=== PATIENT | male | born 1970 | race Caucasian/White ===

== ENCOUNTER 2021-01-18 22:58 | Inpatient (IN) | payer MEDICAID, SELFPAY ==
--- NOTE | ~2021-01-18 | XR_ITS ---
EXAMINATION: XR CHEST CLINICAL INFORMATION: Hypoxia COMPARISON: Previous chest x-ray 01/19/2021 TECHNIQUE: Frontal view of the chest was obtained. FINDINGS: There is an endotracheal tube with tip 2.5 cm above the geovanni. There is a nasogastric tube with tip projecting over the proximal stomach. The cardiac and mediastinal contours are stable. The lung volumes are low. There is slight elevation of the right hemidiaphragm. There is atelectasis or small infiltrates at the lung bases. This does not appear appreciably changed. There is no pleural effusion or pneumothorax. Bony structures are unremarkable. XR/XR chest 1V IMPRESSION: Satisfactory position of support tubes. Low lung volumes and bilateral atelectasis/small infiltrates similar to previous exam.
--- NOTE | ~2021-01-18 | XR_ITS ---
EXAMINATION: XR CHEST CLINICAL INFORMATION: Status post intubation COMPARISON: None TECHNIQUE: Frontal view of the chest was obtained. FINDINGS: ET tube is 0.9 cm from the geovanni and should be pulled back. An NG tube is present with its tip in the stomach but the sidehole just above the GE junction. This should be advanced. The heart size is normal. Left basilar atelectasis is seen with surgical clips in the gallbladder fossa. XR/XR chest 1V IMPRESSION: ET tube needs to be pulled back as it is less than 1 cm from the geovanni. NG tube should be advanced.
--- NOTE | ~2021-01-18 | CT_ITS ---
EXAMINATION: CT HEAD WITHOUT CONTRAST CLINICAL INFORMATION: Confused COMPARISON: None TECHNIQUE: Contiguous axial imaging was performed from the skull base to vertex without intravenous administration of contrast. This CT examination was performed using dose optimization techniques as appropriate, variously including the following: *Automated exposure control *Adjustment of mA and/or kV according to patient size (this includes techniques or standardized protocols for targeted exams where dose is matched to indication/reason for exam; i.e. extremities or head) *Use of iterative reconstruction technique DLP: 657 mGy-cm FINDINGS: There is no evidence of acute intracranial hemorrhage or territorial infarction. No abnormal mass effect or midline shift is seen. Bowles to white matter differentiation is well preserved. No extra-axial fluid collections are identified. The ventricles are normal in size. Symmetric regions of chronic appearing encephalomalacia noted in the inferior frontal lobes. There is mild periventricular white matter hypoattenuation consistent with chronic small vessel ischemic disease. Mild volume loss is noted. The osseous structures and soft tissues are normal. Mucosal thickening of the maxillary sinuses. The mastoid air cells are well-aerated. CT/CT head/brain wo con IMPRESSION: No acute intracranial pathology.
--- NOTE | ~2021-01-18 | XR_ITS ---
EXAMINATION: XR CHEST CLINICAL INFORMATION: Line placement COMPARISON: Previous chest x-ray from earlier the same day TECHNIQUE: Frontal view of the chest was obtained. FINDINGS: There is a new left subclavian line with tip projecting over the SVC. Endotracheal tube tip 3 cm above the geovanni. Nasogastric tube projects over the stomach. The cardiac and mediastinal contours are stable. There is a increasing bilateral perihilar and lower lung airspace disease. There is blunting at the right lateral costophrenic angle questionable for a small right pleural effusion. There is no left pleural effusion. There is no pneumothorax. There are degenerative changes of the spine. XR/XR chest 1V IMPRESSION: New left subclavian line tip projects over SVC. No pneumothorax. Increasing bilateral perihilar and lower lung airspace disease. Question small right pleural effusion.
--- NOTE | ~2021-01-18 | XR_ITS ---
EXAMINATION: XR CHEST CLINICAL INFORMATION: Fever. COMPARISON: Chest x-ray 01/23/2021 TECHNIQUE: Frontal view of the chest was obtained. FINDINGS: The lungs are well-expanded. Diffuse bilateral patchy opacity more prominent in the right mid and lower lobe. Findings are consistent with infiltrate. The heart size and pulmonary vascularity is normal. No gross bony abnormality seen. There is a left central catheter is tip in the mid SVC. The endotracheal tube and nasogastric tube has been removed. XR/XR chest 1V IMPRESSION: Bilateral pulmonary infiltrates. The endotracheal tube and enteric tube has been removed.
[2021-01-18 23:15] VITALS: BP 129/75; PULSE 125; RESP 16; TEMP 36.9; O2SAT 95; BMI 25.1
[2021-01-18 23:34] VITALS: BP 129/75; PULSE 125; RESP 16; TEMP 36.9; O2SAT 95
[2021-01-19] VITALS (31 sets, daily range): BP systolic 91–171; BP diastolic 52–101; PULSE 78–132; RESP 15–30; TEMP 37.1–39.2; O2SAT 95–100; BMI 25.1
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
[2021-01-19] MEDS: QUEtiapine Fumarate 300 MG TABLET PO (02:37)
[2021-01-19 03:59] LABS: COVID-19 Test Negative (Negative)
[2021-01-19 04:14] LABS: Eosinophils Percent Auto 0.2 % (0-4); Imm Gran Abs Auto 0.03 X10*3/uL (0.00-0.03); Imm Gran Pct Auto 0.3 % (0.0-0.4); MANUAL DIFF FLAG NO; PLT CLUMP 1; SCAN SMEAR FLAG 1
[2021-01-19 04:15] LABS: Basophils Percent Auto 0.1 % (0-2); Hematocrit 38.2 % (42-52); Hemoglobin 13.6 g/dl (14.0-18.0); Lymphocytes Absolute Auto 1.7 X10*3/uL (1.2-4.9); Mean Corpuscular HGB Conc 35.6 g/dl (31.0-36.0); Mean Corpuscular Hemoglobin 31.6 pg (27.0-33.0); Mean Corpuscular Volume 88.8 fL (80-98); Mean Platelet Volume 11.4 fL (9.4-12.4); Monocytes Absolute Auto 1.4 X10*3/uL (0.1-1.2); Monocytes Percent Auto 14.1 % (2-11); Neutrophils Absolute Auto 6.9 X10*3/uL (2.0-8.3); Neutrophils Percent Auto 68.3 % (45-73); White Blood Count 10.1 X10*3/uL (4.8-10.8)
[2021-01-19 04:24] LABS: Ammonia 59 umol/L (13-55)
[2021-01-19 04:34] LABS: Platelet Count 92 X10*3/uL (160-400)
[2021-01-19 04:37] LABS: Troponin-I High Sensitivity 16.3 ng/L (<3.5-35.0)
[2021-01-19 04:43] LABS: Alanine Aminotransferase 112 U/L (0-40); Albumin Level 4.3 g/dL (3.5-5.0); Alkaline Phosphatase 77 U/L (39-117); Anion Gap 17 (12-20); Aspartate Amino Transferase 129 U/L (5-37); Blood Urea Nitrogen 8 mg/dL (9-16); Calcium 12.2 mg/dL (8.4-10.2); Carbon Dioxide 26 mmol/L (22-29); Chloride 98 mmol/L (96-108); Creatinine Clr Calc Pharmacy 91.9; Estimated Glomerular Filt Rate > 60; Glucose Random 81 mg/dL (60-115); Potassium 3.4 mmol/L (3.3-5.1); Sodium 138 mmol/L (135-145); Total Protein 7.1 g/dL (6.5-8.0)
--- NOTE | 2021-01-19 05:55 | ECG_ITS ---
Test Reason : AMS Blood Pressure : / mmHG Vent. Rate : 107 BPM Atrial Rate : 107 BPM P-R Int : 142 ms QRS Dur : 092 ms QT Int : 374 ms P-R-T Axes : 062 048 021 degrees QTc Int : 499 ms Sinus tachycardia Otherwise normal ECG No previous ECGs available Referred By: Natali Chi Electronically Signed By:Alessandro Allen
[2021-01-19 06:13] LABS: Ethanol < 10 mg/dL
[2021-01-19 06:15] LABS: Magnesium 1.6 mg/dL (1.6-2.6)
[2021-01-19] MEDS: 0.9 % Sodium Chloride 2,000 ML 999 ML IV (06:23)
[2021-01-19 06:42] LABS: INTERNATIONAL NORM RATIO 1.2 (0.9-1.1); Prothrombin Time 13.9 SEC (10.8-13.0)
[2021-01-19 06:45] LABS: Partial Thromboplastin Time 30.4 SEC (24.1-38.0)
[2021-01-19] MEDS: LORazepam 2 MG/ML VIAL IVPUSH (06:51)
[2021-01-19 07:18] LABS: Glucose Urine UA NEG (NEG); Leukocyte Esterase Urine NEG (NEG); Nitrite Urine NEG (NEG); PH 7.5 (5.0-8.0); Specific Gravity - Urine 1.015 (1.005-1.025); Urine Blood NEG (NEG); Urine Ketones NEG (NEG); Urine Protein NEG (NEG-TRACE)
[2021-01-19 07:20] LABS: Appearance Urine CLOUDY; Color Urine YELLOW
--- NOTE | 2021-01-19 07:37 | PC.NURSE ---
patient is up. re directable but confused. knows he is at [facility].
[2021-01-19 07:51] LABS: Amphetamine Screen Urine Not Detected (Not Detect); Barbiturates, Urine Not Detected (Not Detect); Benzodiazepines Screen Urine Not Detected (Not Detect); Cannabinoid Screen Urine POSITIVE (Not Detect); Cocaine Screen Urine Not Detected (Not Detect); Opiate Screen Urine Not Detected (Not Detect); Phencyclidine Screen Urine Not Detected (Not Detect)
[2021-01-19] MEDS: PHENobarbitaL sodium 65 MG/ML VIAL 280 MG IM (08:23)
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
--- NOTE | 2021-01-19 09:03 | PC.NURSE ---
patient is hallucinating. sitter still at bedside.
[2021-01-19] MEDS: PHENobarbitaL sodium 130 MG/ML VIAL 212 MG IM ×2 (11:02→14:19)
--- NOTE | 2021-01-19 11:58 | PC.NURSE ---
patient continues to be combative, hallucinate. sitter at bedside. patient ripping off heart monitor. hospitalist at bedside. needs to be less combative before he can go to the floor per MD. patient is not oriented to place or time.
[2021-01-19] MEDS: Haloperidol Lactate 5 MG/ML VIAL 10 MG IM (13:53)
[2021-01-19] MEDS: diphenhydrAMINE HCL 50 MG/ML VIAL IVPUSH (13:53)
[2021-01-19] MEDS: Enoxaparin Sodium 40 MG/0.4 ML SYRINGE SUBCUT (15:00)
[2021-01-19] MEDS: Thiamine HCL 200 MG in 0.9 % Sodium Chloride 100 ML 204 MG IV (15:33)
[2021-01-19] MEDS: dexmedeTOMIDidine HCL/NS 400 MCG/100 ML INFUS..BTL 19.28 MCG IVCONT (16:06)
[2021-01-19] MEDS: propofoL 200 MG/20 ML VIAL IVPUSH (17:59)
[2021-01-19] MEDS: propofoL 1,000 MG/100 ML VIAL 18.51 MG IVCONT (18:01)
--- NOTE | 2021-01-19 18:07 | W.PM.CCHP ---
Procedures Intubation Intubation Comments: Patient with acute agitation, not responsive to 1st line treatment with benzodiazepines, it was psychotic so, and antihistamines requiring initiation of sedative drips, emergently intubated for airway protection with 7.5 cuffed ET tube under glide scope guidance with no immediate complications. X-ray for ET tube position is pending. Consent for Procedure: Emergent-no informed consent obtained Sedative: propofol Mg given: 200 Laryngoscope: fiber optic video scope ET tube size: 7.5 ET tube uncuffed: No Tube secured depth (cm): 27 Tube secured location: lips Tube placement confirmation: visualized tube passing through cords, equal breath sounds bilaterally and confirmation by capnometry Patient tolerated procedure: no complications
--- NOTE | 2021-01-19 18:12 | P.HPCC_ITS ---
History of Present Illness Date of Service: 01/19/21 Chief Complaint: Alteration of mental status 50-year-old gentleman with underlying history of traumatic brain injury, depression, anxiety, psychotic features, hyperlipidemia, and alcohol abuse admitted on 01/19/2021 for acute alteration of mental status, severe agitation, and psychotic features when he was brought in by police for hallucinations after please found him talking to a lamp in his apartment. His utox was positive for marijuana. However he remained significantly agitated and unresponsive to of initial treatment with parenteral under psychotic, benzodiazepines, and antihistamines. He has been admitted to intensive care unit on a sedative drip. Review of Systems Review of Systems: Yes Unobtainable due to mental status PMFSH Social History Social History Alcohol intake: unknown Smoking Status: Unknown if ever smoked Use of substances other than those prescribed or required for medical reasons: Unknown Advance Directives: No Advance Directives Information Provided: No Meds Allergies Allergy/AdvReac Type Severity Reaction Status Date / Time No Known Allergies Allergy Verified 01/19/21 02:09 Active Medications: Current Medications Generic Name Dose Route Start Last Admin Trade Name Freq PRN Reason Stop Dose Admin Chlorhexidine Gluconate 15 ml 01/19/21 21:00 Chlorhexidine Gluc Oral Rinse 15 Ml Mouthwash BUCCAL TID KAYLEIGH Enoxaparin Sodium 40 mg 01/19/21 15:00 01/19/21 15:00 Enoxaparin Sodium 40 Mg/0.4 Ml Syringe SUBCUT 40 mg Q24H KAYLEIGH Administration Famotidine 20 mg 01/20/21 09:00 Famotidine/Pf 20 Mg/2 Ml Vial IVPUSH DAILY KAYLEIGH Folic Acid 2 mg 01/20/21 09:00 Folic Acid 1 Mg/0.2 Ml Syringe IVPUSH DAILY KAYLEIGH Dexmedetomidine HCl 400 mcg in 100 mls @ 0 mls/hr 01/19/21 14:45 01/19/21 18:06 Precedex IVCONT Infused .Q0M KAYLEIGH Titration Protocol Per Protocol Thiamine HCl 200 mg/ Sodium 102 mls @ 204 mls/hr 01/19/21 14:45 01/19/21 16:32 Chloride IV 01/22/21 03:46 Infused Q12H KAYLEIGH Infusion Propofol 1,000 mg in 100 mls @ 0 mls/hr 01/19/21 18:15 Diprivan IVCONT .Q0M [facility] Protocol Per Protocol Medication 1 each 01/19/21 09:00 No Benzodiazepines MISCELLANE DAILY [facility] Ondansetron HCl 4 mg 01/19/21 14:41 Ondansetron Hcl 4 Mg/2 Ml Vial IVPUSH Q8H PRN Nausea Phenobarbital 45 mg 01/19/21 21:00 Phenobarbital 15 Mg Tablet PO 01/21/21 09:01 BID [facility] Phenobarbital 15 mg 01/21/21 21:00 Phenobarbital 15 Mg Tablet PO 01/23/21 09:01 BID [facility] Phenobarbital 15 mg 01/24/21 09:00 Phenobarbital 15 Mg Tablet PO 01/25/21 09:01 DAILY [facility] Propofol 200 mg 01/19/21 18:07 Propofol 200 Mg/20 Ml Vial IVPUSH 01/19/21 18:08 ONCE ONE Home Medications Medication Instructions Recorded Confirmed Last Taken Type cholecalciferol (vitamin D3) 1 cap PO DAILY 01/19/21 Unknown History [Vitamin D3] citalopram 1 tab PO DAILY 01/19/21 Unknown History fenofibrate nanocrystallized 1 tab PO DAILY 01/19/21 Unknown History naltrexone 1 tab PO DAILY PRN 01/19/21 Unknown History quetiapine 1 tab PO BEDTIME 01/19/21 Unknown History quetiapine 1 tab PO BEDTIME 01/19/21 Unknown History quetiapine 1 tab PO BID 01/19/21 Unknown History Physical Exam Vital Signs: Vital Signs: Last Vital Signs Temp 99.9 F 01/19/21 17:18 Pulse 105 H 01/19/21 17:18 Resp 24 H 01/19/21 17:18 BP 168/93 H 01/19/21 17:18 Pulse Ox 95 01/19/21 17:18 Body Mass Index 25.1 Const: General: no acute distress and other (Sedated on the vent) Eyes: Sclerae: sclerae normal EOM: EOMs intact bilaterally Neck: Neck: Yes no lymphadenopathy, Yes trachea midline and Yes supple Resp: Effort & Inspection: normal respiratory effort and no respiratory distress Auscultation: clear to auscultation bilaterally Cardio: Rate: regular rate Rhythm: regular rhythm Heart sounds: no gallops, no murmurs and no rubs GI: Palpation (GI): Soft to palpation and Other GI palpation findings present ( Nontender) Auscultation: normal bowel sounds Extrem: General: Yes no pedal edema, No clubbing and No cyanosis Results Labs CBC and Chem 7: 01/19/21 04:08 01/19/21 04:08 Labs: Laboratory Results - last 24 hr 01/19/21 01/19/21 01/19/21 03:24 04:08 04:08 MCV 88.8 MCH 31.6 MCHC 35.6 RDW 13.0 Plt Count 92 L MPV 11.4 Immature Gran % (Auto) 0.3 Neut % (Auto) 68.3 Lymph % (Auto) 17.0 L [place] % (Auto) 14.1 H Eos % (Auto) 0.2 Baso % (Auto) 0.1 Lymph # (Auto) 1.7 [place] # (Auto) 1.4 H Eos # (Auto) 0.0 Baso # (Auto) 0.0 Abs Immat Gran (auto) 0.03 Absolute Neuts (auto) 6.9 Absolute Nucleated RBC 0.000 Nucleated RBC % (auto) 0.0 PT INR APTT Anion Gap 17 Estim Creat Clear Calc 91.9 Estimated GFR > 60 Random Glucose 81 Calcium 12.2 H Magnesium 1.6 Total Bilirubin 1.0 AST 129 H ALT 112 H Alkaline Phosphatase 77 Ammonia Troponin I High Sens Total Protein 7.1 Albumin 4.3 Urine Color Urine Appearance Urine pH Ur Specific [place] Urine Protein Urine Glucose (UA) Urine Ketones Urine Blood Urine Nitrite Ur Leukocyte Esterase Urine Opiates Screen Ur Barbiturates Screen Ur Phencyclidine Scrn Ur Amphetamines Screen U Benzodiazepines Scrn Urine Cocaine Screen U Marijuana (THC) Screen Ethyl Alcohol COVID-19 (ADI) Negative COVID-19 Clin Com See Note 01/19/21 01/19/21 01/19/21 04:08 04:08 04:08 MCV MCH MCHC RDW Plt Count MPV Immature Gran % (Auto) Neut % (Auto) Lymph % (Auto) [place] % (Auto) Eos % (Auto) Baso % (Auto) Lymph # (Auto) [place] # (Auto) Eos # (Auto) Baso # (Auto) Abs Immat Gran (auto) Absolute Neuts (auto) Absolute Nucleated RBC Nucleated RBC % (auto) PT INR APTT Anion Gap Estim Creat Clear Calc Estimated GFR Random Glucose Calcium Magnesium Total Bilirubin AST ALT Alkaline Phosphatase Ammonia 59 H Troponin I High Sens 16.3 Total Protein Albumin Urine Color Urine Appearance Urine pH Ur Specific [place] Urine Protein Urine Glucose (UA) Urine Ketones Urine Blood Urine Nitrite Ur Leukocyte Esterase Urine Opiates Screen Ur Barbiturates Screen Ur Phencyclidine Scrn Ur Amphetamines Screen U Benzodiazepines Scrn Urine Cocaine Screen U Marijuana (THC) Screen Ethyl Alcohol < 10 COVID-19 (ADI) COVID-19 Clin Com 01/19/21 01/19/21 01/19/21 06:32 07:07 07:07 MCV MCH MCHC RDW Plt Count MPV Immature Gran % (Auto) Neut % (Auto) Lymph % (Auto) [place] % (Auto) Eos % (Auto) Baso % (Auto) Lymph # (Auto) [place] # (Auto) Eos # (Auto) Baso # (Auto) Abs Immat Gran (auto) Absolute Neuts (auto) Absolute Nucleated RBC Nucleated RBC % (auto) PT 13.9 H INR 1.2 H APTT 30.4 Anion Gap Estim Creat Clear Calc Estimated GFR Random Glucose Calcium Magnesium Total Bilirubin AST ALT Alkaline Phosphatase Ammonia Troponin I High Sens Total Protein Albumin Urine Color YELLOW Urine Appearance CLOUDY Urine pH 7.5 Ur Specific [place] 1.015 Urine Protein NEG Urine Glucose (UA) NEG Urine Ketones NEG Urine Blood NEG Urine Nitrite NEG Ur Leukocyte Esterase NEG Urine Opiates Screen Not Detected Ur Barbiturates Screen Not Detected Ur Phencyclidine Scrn Not Detected Ur Amphetamines Screen Not Detected U Benzodiazepines Scrn Not Detected Urine Cocaine Screen Not Detected U Marijuana (THC) Screen POSITIVE H Ethyl Alcohol COVID-19 (ADI) COVID-19 Clin Com Imaging Radiologist's Impressions: Impressions Head CT 01/19/21 02:09 IMPRESSION: No acute intracranial pathology. Assessment and Plan (1) Acute alteration in mental status: Status: Acute Assessment: 50-year-old gentleman admitted with toxic encephalopathy, likely secondary to substance abuse, requiring sedative drips and intubation for airway protection. Plan: Neuro: Appears to have toxic encephalopathy secondary to substance abuse. CT head with no acute findings. Continue to titrate of sedative drips as tolerated. Cardiac: No acute issues. Pulmonary: Acute respiratory failure requiring intubation and ventilatory support for airway protection secondary to high sedation requirements. Renal: No acute issues. Endo: No acute issues. GI: No acute issues. ID: No acute issues Heme/Onc: No acute issues. Psych: No acute issues. Miscellaneous: No acute issues. Prophylaxis: Famotidine, Lovenox Diet: Nothing by mouth Critical care time spent: 45 minutes (2) Encephalopathy, toxic: Status: Acute (3) Acute respiratory failure: Status: Acute Critical Care Time 45 minutes
--- NOTE | 2021-01-19 18:55 | PC.NURSE ---
ADMITTED FROM ED AT 1743. PATIENT IN 4 POINT RESTRAINTS, YELLING, COMBATIVE. ON PRECEDEX GTT. CALLED. SET UP FOR INTUBATION. 200 MG PROPOFOL IVP AND GTT STARTED AT 40 MCG/KG/MIN. GTT WEIGHT 77.1 KG. ETT 8.0, 27 AT LIP, BITE BLOCK IN PLACE. VENT SETTINGS AC 16 TV 500 PEEP 5 FI02 50%. PROPOFOL GTT INCREASED TO 50 MCG/KG/MIN DUE TO SITTING UP AND PULLING ON RESTRAINTS. RESTRAINTS APPLIED AT 1800. OG TUBE PLACED AND CONFIRMED WITH CXR. CLEMENT PLACED. TMAX 102.6, VSS. SR ON TELE. PICTURES OBTAINED OF BRUISING, NURSING DANDY TENDER NOTIFIED, PLACE IN CHART.
[2021-01-19 19:05] LABS: Basophils Percent Auto 0.2 % (0-2); Eosinophils Percent Auto 0.1 % (0-4); Hematocrit 37.5 % (42-52); Imm Gran Abs Auto 0.13 X10*3/uL (0.00-0.03); Imm Gran Pct Auto 1.1 % (0.0-0.4); Lymphocytes Absolute Auto 0.5 X10*3/uL (1.2-4.9); Lymphocytes Percent Auto 4.1 % (20-40); MANUAL DIFF FLAG SCAN; Mean Corpuscular HGB Conc 34.7 g/dl (31.0-36.0); Mean Corpuscular Hemoglobin 31.7 pg (27.0-33.0); Mean Corpuscular Volume 91.5 fL (80-98); Monocytes Percent Auto 8.5 % (2-11); Platelet Count 103 X10*3/uL (160-400); Red Cell Distribution Width 13.4 % (11.0-16.0); SCAN SMEAR FLAG 1; White Blood Count 11.6 X10*3/uL (4.8-10.8)
[2021-01-19 19:21] LABS: SLIDE REVIEW VERIFIED
[2021-01-19 20:32] LABS: Lactic Acid 0.8 mmol/L (0.5-2.0)
[2021-01-19] MEDS: Chlorhexidine Gluc Oral Rinse 15 ML MOUTHWASH BUCCAL (20:46)
[2021-01-19] MEDS: Piperacillin Sodium/Tazobactam 4.5 GM in 0.9 % Sodium Chloride 100 ML IV (20:46)
[2021-01-19] MEDS: propofoL 1,000 MG/100 ML VIAL 23.13 MG IVCONT (21:20)
[2021-01-20] VITALS (30 sets, daily range): BP systolic 99–131; BP diastolic 53–80; PULSE 70–104; RESP 16–24; TEMP 37.3–38.1; O2SAT 93–99; BMI 25.5
[2021-01-20] MEDS: Cisatracurium Besylate 20 MG/10 ML VIAL 15 MG IVPUSH ×2 (00:11→05:31)
[2021-01-20] MEDS: propofoL 1,000 MG/100 ML VIAL 23.13 MG IVCONT ×6 (01:40→21:02)
[2021-01-20] MEDS: Thiamine HCL 200 MG in 0.9 % Sodium Chloride 100 ML IV (02:22)
[2021-01-20 06:03] LABS: Venous Blood Gas Refer to POC result
[2021-01-20 06:04] LABS: VBG HCO3 16 mmol/L (22-26); VBG pCO2 25 mmHg; VBG pH 7.42 (7.32-7.43); VBG pO2 195 mmHg
[2021-01-20 06:04] LABS: Basophils Percent Auto 0.3 % (0-2); MANUAL DIFF FLAG SCAN; Mean Corpuscular Volume 90.7 fL (80-98); PLT CLUMP 1; Red Blood Count 4.08 X10*6/uL (4.60-5.80); Red Cell Distribution Width 13.9 % (11.0-16.0); SCAN SMEAR FLAG 1
[2021-01-20 06:06] LABS: Eosinophils Percent Auto 0.1 % (0-4); Hemoglobin 12.8 g/dl (14.0-18.0); Imm Gran Abs Auto 0.04 X10*3/uL (0.00-0.03); Imm Gran Pct Auto 0.3 % (0.0-0.4); Lymphocytes Absolute Auto 1.7 X10*3/uL (1.2-4.9); Lymphocytes Percent Auto 14.3 % (20-40); Mean Corpuscular HGB Conc 34.6 g/dl (31.0-36.0); Mean Corpuscular Hemoglobin 31.4 pg (27.0-33.0); Mean Platelet Volume 10.8 fL (9.4-12.4); Monocytes Absolute Auto 1.6 X10*3/uL (0.1-1.2); Monocytes Percent Auto 13.9 % (2-11); Neutrophils Absolute Auto 8.3 X10*3/uL (2.0-8.3); Neutrophils Percent Auto 71.1 % (45-73); Platelet Count 117 X10*3/uL (160-400); White Blood Count 11.7 X10*3/uL (4.8-10.8)
[2021-01-20 06:35] LABS: SLIDE REVIEW VERIFIED
[2021-01-20 06:40] LABS: Anion Gap 20 (12-20); Blood Urea Nitrogen 20 mg/dL (9-16); Calcium 9.2 mg/dL (8.4-10.2); Carbon Dioxide 20 mmol/L (22-29); Chloride 110 mmol/L (96-108); Creatinine Clr Calc Pharmacy 76.6; Estimated Glomerular Filt Rate > 60; Glucose Random 73 mg/dL (60-115); Magnesium 2.1 mg/dL (1.6-2.6); Phosphorus 3.3 mg/dL (2.7-4.5); Potassium 3.6 mmol/L (3.3-5.1); Sodium 146 mmol/L (135-145)
[2021-01-20 06:41] LABS: Alanine Aminotransferase 186 U/L (0-40); Albumin Level 3.7 g/dL (3.5-5.0); Alkaline Phosphatase 68 U/L (39-117); Anion Gap 20 (12-20); Aspartate Amino Transferase 356 U/L (5-37); Bilirubin Total 0.5 mg/dL (0.0-1.0); Blood Urea Nitrogen 21 mg/dL (9-16); Calcium 9.3 mg/dL (8.4-10.2); Carbon Dioxide 20 mmol/L (22-29); Chloride 110 mmol/L (96-108); Creatinine Clr Calc Pharmacy 72.8; Estimated Glomerular Filt Rate > 60; Glucose Random 75 mg/dL (60-115); Potassium 3.6 mmol/L (3.3-5.1); Sodium 146 mmol/L (135-145)
[2021-01-20] MEDS: Midazolam HCl/PF 2 MG/2 ML VIAL 4 MG IVPUSH ×2 (07:25→09:00)
--- NOTE | 2021-01-20 07:35 | PC.NURSE ---
Patient remained on 50 mcg/kg/min throughout the shift. Patient wakeful and pulling on restraints and attempting to sit up at 1155. CLARIFIER OPERATOR HELPER placed order for 15mg Nimbex. Nimbex administered with good effect, at this time the rate on the ventilator was increased to 20 from 16. Nimbex was also administered at 0530. 0715 patient is once again wakeful, pulling on restraints and attempting to sit up. Dr. Aj was contacted and a verbal order was taken for 4mg versed. Versed was emergently pulled from [facility] and administered.
[2021-01-20] MEDS: Dextrose 5 % and Lactated Ring 1,000 ML 100 ML IVCONT ×2 (10:12→18:16)
--- NOTE | 2021-01-20 10:19 | MHC.CLN ---
PT IS CURRENTLY NPO; ON NIMBEX DRIP IF TF NEEDED; RECOMMEND [facility] AT MAX GOAL RATE 55CC/HR TO PROVIDE 1399KCALS (2009KCALS WITH SEDATION; 25KCALS/KG), 55G PROTEIN (.7G/KG), 1102CC FREE WATER FROM FORMULA MONITOR TOLERANCE, RESIDUALS AND LYTES
[2021-01-20] MEDS: Midazolam HCl/NS 50 MG/50 ML PLAST..BAG IVCONT ×2 (10:30→17:47)
[2021-01-20] MEDS: Famotidine/PF 20 MG/2 ML VIAL IVPUSH (10:32)
[2021-01-20] MEDS: Chlorhexidine Gluc Oral Rinse 15 ML MOUTHWASH BUCCAL ×3 (10:32→21:02)
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
--- NOTE | 2021-01-20 14:29 | PM.CCPN ---
Subjective Subjective Date of Service: 01/20/21 Interval History: 50-year-old gentleman with underlying history of traumatic brain injury, depression, anxiety, psychotic features, hyperlipidemia, and alcohol abuse admitted on 01/19/2021 for acute alteration of mental status, severe agitation, and psychotic features when he was brought in by police for hallucinations after please found him talking to a lamp in his apartment. His utox was positive for marijuana. However he remained significantly agitated and unresponsive to of initial treatment with parenteral under psychotic, benzodiazepines, and antihistamines. He has been admitted to intensive care unit on a sedative drip. Overnight requiring paralytic agent several times for difficult to controlled agitation/ventilator synchrony. Physical Exam Vital Signs: Vital Signs: Last Vital Signs Temp 99.7 F 01/20/21 14:00 Pulse 73 01/20/21 14:00 Resp 20 01/20/21 14:00 BP 108/62 01/20/21 14:00 Pulse Ox 98 01/20/21 14:00 Body Mass Index 25.5 Const: General: no acute distress, alert and awake Eyes: Sclerae: sclerae normal EOM: EOMs intact bilaterally Neck: Neck: Yes no lymphadenopathy, Yes trachea midline and Yes supple Resp: Effort & Inspection: normal respiratory effort and no respiratory distress Auscultation: clear to auscultation bilaterally Cardio: Rate: regular rate Rhythm: regular rhythm Heart sounds: no gallops, no murmurs and no rubs GI: Palpation (GI): Soft to palpation and Other GI palpation findings present ( Nontender) Auscultation: normal bowel sounds Extrem: General: Yes no pedal edema, No clubbing and No cyanosis Objective Data Labs CBC & Chem 7: 01/20/21 05:51 01/20/21 05:51 Labs: Laboratory Results - last 24 hr 01/19/21 01/19/21 01/20/21 18:51 20:01 05:51 WBC 11.6 H RBC 4.10 L Hgb 13.0 L Hct 37.5 L MCV 91.5 MCH 31.7 MCHC 34.7 RDW 13.4 Plt Count 103 L MPV 11.0 Immature Gran % (Auto) 1.1 H Neut % (Auto) 86.0 H Lymph % (Auto) 4.1 L [place] % (Auto) 8.5 Eos % (Auto) 0.1 Baso % (Auto) 0.2 Lymph # (Auto) 0.5 L [place] # (Auto) 1.0 Eos # (Auto) 0.0 Baso # (Auto) 0.0 Abs Immat Gran (auto) 0.13 H Absolute Neuts (auto) 10.0 H Absolute Nucleated RBC 0.000 Nucleated RBC % (auto) 0.0 Smear Tech's Comments VERIFIED VBG pH VBG pCO2 VBG pO2 VBG HCO3 VBG O2 Saturation VBG Base Excess Sodium 146 H Potassium 3.6 Chloride 110 H Carbon Dioxide 20 L Anion Gap 20 BUN 20 H D Creatinine 1.14 Estim Creat Clear Calc 76.6 Estimated GFR > 60 Random Glucose 73 Lactic Acid 0.8 Calcium 9.2 D Phosphorus 3.3 Magnesium 2.1 Total Bilirubin AST ALT Alkaline Phosphatase Total Protein Albumin 01/20/21 01/20/21 01/20/21 05:51 05:51 05:57 WBC 11.7 H RBC 4.08 L Hgb 12.8 L Hct 37.0 L MCV 90.7 MCH 31.4 MCHC 34.6 RDW 13.9 Plt Count 117 L MPV 10.8 Immature Gran % (Auto) 0.3 Neut % (Auto) 71.1 Lymph % (Auto) 14.3 L [place] % (Auto) 13.9 H Eos % (Auto) 0.1 Baso % (Auto) 0.3 Lymph # (Auto) 1.7 [place] # (Auto) 1.6 H Eos # (Auto) 0.0 Baso # (Auto) 0.0 Abs Immat Gran (auto) 0.04 H Absolute Neuts (auto) 8.3 Absolute Nucleated RBC 0.000 Nucleated RBC % (auto) 0.0 Smear Tech's Comments VERIFIED VBG pH 7.42 VBG pCO2 25 VBG pO2 195 VBG HCO3 16 L VBG O2 Saturation 100.0 VBG Base Excess -6.0 Sodium 146 H Potassium 3.6 Chloride 110 H Carbon Dioxide 20 L Anion Gap 20 BUN 21 H Creatinine 1.20 Estim Creat Clear Calc 72.8 Estimated GFR > 60 Random Glucose 75 Lactic Acid Calcium 9.3 Phosphorus Magnesium Total Bilirubin 0.5 AST 356 H ALT 186 H Alkaline Phosphatase 68 Total Protein 6.0 L Albumin 3.7 Progress Note: A&P Assessment and plan (1) Acute respiratory failure: Status: Acute Assessment and Plan: Assessment: 50-year-old gentleman admitted with toxic encephalopathy, likely secondary to substance abuse, requiring sedative drips and intubation for airway protection. Plan: Neuro: Appears to have toxic encephalopathy secondary to substance abuse. CT head with no acute findings. Continue to titrate off sedative drips as tolerated. Cardiac: No acute issues. Pulmonary: Acute respiratory failure requiring intubation and ventilatory support for airway protection secondary to high sedation requirements. Renal: No acute issues. Endo: No acute issues. GI: No acute issues. ID: No acute issues Heme/Onc: No acute issues. Psych: No acute issues. Miscellaneous: Will start on Lamictal for mood control. Prophylaxis: Famotidine, Lovenox Diet: Nothing by mouth Critical care time spent: 45 minutes (2) Encephalopathy, toxic: Status: Acute (3) Acute alteration in mental status: Status: Acute Time Spent With Patient Total time spent with greater than 50% in coordination of care (as documented) at patient's floor/unit and/or counseling patient:: 0 Critical Care Time 45
[2021-01-20] MEDS: Enoxaparin Sodium 40 MG/0.4 ML SYRINGE SUBCUT (16:00)
[2021-01-20] MEDS: Thiamine HCL 200 MG in 0.9 % Sodium Chloride 100 ML 100 MG IV (16:00)
--- NOTE | 2021-01-20 19:38 | PC.NURSE ---
Assumed care at 0645. Patient was completely alert, following commands, squeezed hands and pedaled feet to command on 50 mcg/kg/min of propofol; was pulling at restraints, thrashing back and forth, fighting vent; md notified, one time dose of 4 mg iv versed ordered and administered with good effect. This same pattern recurred and a second dose of IV versed was administered with good effect, and then MD ordered versed gtt at 2 ml/hour. patient continues to wake very easily, opens eyes, pulls at restraints when nursing care is given. Patient was found to have lost patency of his OG tube this afternoon; evening nurse following up; patient did not get his afternoon dose of lamictal. Patient continues on IV propofol, IV versed, D5 LR at 100 / hour, only has peripheral access, and MD is aware. Patient with clear lung sounds, has #8 ETT, 27 [place], AC/VC settings of AC 20; TV 500; Peep 5; FiO2 50%; minute volumes about 10. Ventilates well in between nursing care. Scant secretions. Urine output to mukherjee about 9 cc/ hour this morning, MD notified; new order for D5LR gtt, and urine outputs averaging around 40-50 cc/hour. Skin is intact, but scattered redness, bruises, and abrasions.
[2021-01-20] MEDS: lamoTRIgine 25 MG TABLET 50 MG PO (21:02)
[2021-01-21] VITALS (31 sets, daily range): BP systolic 91–149; BP diastolic 47–68; PULSE 66–96; RESP 18–20; TEMP 37.7–39.6; O2SAT 90–100; BMI 28.3
[2021-01-21] MEDS: propofoL 1,000 MG/100 ML VIAL 23.13 MG IVCONT ×6 (00:48→20:59)
[2021-01-21] MEDS: Thiamine HCL 200 MG in 0.9 % Sodium Chloride 100 ML 100 MG IV (01:35)
[2021-01-21] MEDS: Dextrose 5 % and Lactated Ring 1,000 ML 100 ML IVCONT ×2 (03:35→12:33)
[2021-01-21 05:21] LABS: VBG Base Excess 4.6 mmol/L; VBG HCO3 26 mmol/L (22-26); VBG pCO2 30 mmHg; VBG pH 7.54 (7.32-7.43); VBG pO2 106 mmHg
[2021-01-21 05:22] LABS: Basophils Percent Auto 0.5 % (0-2); MANUAL DIFF FLAG SCAN; PLT CLUMP 1; Red Cell Distribution Width 13.9 % (11.0-16.0); SCAN SMEAR FLAG 1
[2021-01-21 05:24] LABS: Eosinophils Absolute Auto 0.1 X10*3/uL (0.0-0.4); Eosinophils Percent Auto 1.1 % (0-4); Hematocrit 36.2 % (42-52); Hemoglobin 12.5 g/dl (14.0-18.0); Imm Gran Abs Auto 0.01 X10*3/uL (0.00-0.03); Imm Gran Pct Auto 0.2 % (0.0-0.4); Lymphocytes Absolute Auto 1.9 X10*3/uL (1.2-4.9); Lymphocytes Percent Auto 29.2 % (20-40); Mean Corpuscular HGB Conc 34.5 g/dl (31.0-36.0); Mean Corpuscular Hemoglobin 31.4 pg (27.0-33.0); Mean Platelet Volume 10.9 fL (9.4-12.4); Monocytes Absolute Auto 1.1 X10*3/uL (0.1-1.2); Monocytes Percent Auto 16.4 % (2-11); Neutrophils Absolute Auto 3.5 X10*3/uL (2.0-8.3); Neutrophils Percent Auto 52.6 % (45-73); Platelet Count 129 X10*3/uL (160-400); Red Blood Count 3.98 X10*6/uL (4.60-5.80); White Blood Count 6.6 X10*3/uL (4.8-10.8)
[2021-01-21 05:40] LABS: SLIDE REVIEW VERIFIED
[2021-01-21 05:55] LABS: Albumin Level 3.3 g/dL (3.5-5.0); Anion Gap 11 (12-20); Blood Urea Nitrogen 11 mg/dL (9-16); Calcium 8.4 mg/dL (8.4-10.2); Carbon Dioxide 25 mmol/L (22-29); Chloride 111 mmol/L (96-108); Creatinine Clr Calc Pharmacy 106.5; Estimated Glomerular Filt Rate > 60; Glucose Random 137 mg/dL (60-115); Magnesium 1.9 mg/dL (1.6-2.6); Phosphorus 1.7 mg/dL (2.7-4.5); Potassium 3.2 mmol/L (3.3-5.1); Sodium 144 mmol/L (135-145)
[2021-01-21 06:01] LABS: Venous Blood Gas Refer to POC result
[2021-01-21] MEDS: Chlorhexidine Gluc Oral Rinse 15 ML MOUTHWASH BUCCAL ×3 (08:11→20:58)
[2021-01-21] MEDS: lamoTRIgine 25 MG TABLET 50 MG PO ×2 (08:12→20:58)
[2021-01-21] MEDS: Famotidine/PF 20 MG/2 ML VIAL IVPUSH (08:12)
[2021-01-21] MEDS: Potassium Phosphate 30 MMOL in 0.9 % Sodium Chloride 500 ML 85 MMOL IV (08:42)
[2021-01-21] MEDS: fentaNYL citrate/NS 1,000 MCG/100 ML PLAST..BAG 2.5 MCG IVCONT (09:28)
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
[2021-01-21] MEDS: Ampicillin Sodium/Sulbactam Na 3 GM in 0.9 % Sodium Chloride 100 ML IV ×3 (12:29→22:53)
[2021-01-21] MEDS: Cisatracurium Besylate 20 MG/10 ML VIAL 10 MG IVPUSH (13:37)
[2021-01-21] MEDS: Thiamine HCL 200 MG in 0.9 % Sodium Chloride 100 ML 204 MG IV (14:26)
[2021-01-21] MEDS: Enoxaparin Sodium 40 MG/0.4 ML SYRINGE SUBCUT (14:32)
[2021-01-21] MEDS: Midazolam HCl/NS 50 MG/50 ML PLAST..BAG IVCONT (14:33)
--- NOTE | 2021-01-21 15:34 | PC.NURSE ---
Pt on propofol and versed this am, sitting up, reaching for et tube, unable to sedate, started on fentanyl drip and titrated, continues to sit up, attempting to get out of bed and pull out et tube, 1:1 staff, pt kicking, unable to sedate, MD at bedside,fentanyl drip increased and nimbex ordered and given with effect, restraints remain for patient safety/ pt continues to have moments of restlessness and agitation, settles with current sedation temp noted to increase to 103.1 this afternoon, pt diaphoretic, hr up from 70s to 90s, copious amounts of bocanegra/cream secretions via inline, md aware, sputum sample obtained and sent and pt started on IV abx
[2021-01-21] MEDS: fentaNYL citrate/NS 1,000 MCG/100 ML PLAST..BAG 15 MCG IVCONT (16:06)
[2021-01-21] MEDS: Acetaminophen Oral Liquid 650 MG/20.3 ML SOLUTION PO (16:49)
[2021-01-21] MEDS: Dextrose 5 % and Lactated Ring 1,000 ML 200 ML IVCONT ×2 (18:22→22:53)
[2021-01-21] MEDS: Albumin Human 25 % 100 ML IV (23:19)
[2021-01-22] VITALS (29 sets, daily range): BP systolic 83–114; BP diastolic 52–77; PULSE 65–77; RESP 20–96; TEMP 38.2–39.3; O2SAT 95–99; BMI 29.2
[2021-01-22] MEDS: propofoL 1,000 MG/100 ML VIAL 23.13 MG IVCONT ×6 (00:57→22:14)
[2021-01-22] MEDS: Furosemide 20 MG/2 ML VIAL IVPUSH (01:55)
[2021-01-22] MEDS: Acetaminophen Oral Liquid 650 MG/20.3 ML SOLUTION PO (01:55)
[2021-01-22] MEDS: fentaNYL citrate/NS 1,000 MCG/100 ML PLAST..BAG 7.5 MCG IVCONT (01:55)
[2021-01-22] MEDS: Thiamine HCL 200 MG in 0.9 % Sodium Chloride 100 ML 204 MG IV (03:27)
[2021-01-22] MEDS: Ampicillin Sodium/Sulbactam Na 3 GM in 0.9 % Sodium Chloride 100 ML IV ×4 (05:12→23:03)
[2021-01-22 05:47] LABS: Eosinophils Absolute Auto 0.1 X10*3/uL (0.0-0.4); Eosinophils Percent Auto 0.8 % (0-4); Imm Gran Abs Auto 0.01 X10*3/uL (0.00-0.03); Imm Gran Pct Auto 0.2 % (0.0-0.4); Mean Corpuscular HGB Conc 33.5 g/dl (31.0-36.0); Mean Corpuscular Volume 93.2 fL (80-98); Mean Platelet Volume 11.1 fL (9.4-12.4); PLT CLUMP 1; SCAN SMEAR FLAG 1
[2021-01-22 05:49] LABS: Basophils Percent Auto 0.3 % (0-2); Hemoglobin 11.4 g/dl (14.0-18.0); Lymphocytes Absolute Auto 1.9 X10*3/uL (1.2-4.9); Lymphocytes Percent Auto 31.1 % (20-40); Mean Corpuscular Hemoglobin 31.2 pg (27.0-33.0); Monocytes Absolute Auto 0.7 X10*3/uL (0.1-1.2); Monocytes Percent Auto 11.6 % (2-11); Neutrophils Absolute Auto 3.4 X10*3/uL (2.0-8.3); Platelet Count 133 X10*3/uL (160-400); Red Blood Count 3.65 X10*6/uL (4.60-5.80); Red Cell Distribution Width 14.6 % (11.0-16.0); White Blood Count 6.1 X10*3/uL (4.8-10.8)
[2021-01-22 05:53] LABS: VBG Base Excess 1.9 mmol/L; VBG HCO3 24 mmol/L (22-26); VBG pCO2 30 mmHg; VBG pO2 68 mmHg
[2021-01-22 05:58] LABS: Venous Blood Gas Refer to POC result
[2021-01-22] MEDS: Dextrose 5 % and Lactated Ring 1,000 ML 200 ML IVCONT ×3 (06:00→13:58)
[2021-01-22 06:12] LABS: MANUAL DIFF FLAG NO
[2021-01-22 06:22] LABS: Alanine Aminotransferase 125 U/L (0-40); Albumin Level 3.1 g/dL (3.5-5.0); Alkaline Phosphatase 50 U/L (39-117); Anion Gap 9 (12-20); Aspartate Amino Transferase 191 U/L (5-37); Bilirubin Total 0.5 mg/dL (0.0-1.0); Blood Urea Nitrogen 7 mg/dL (9-16); Calcium 7.8 mg/dL (8.4-10.2); Carbon Dioxide 27 mmol/L (22-29); Chloride 114 mmol/L (96-108); Creatinine Clr Calc Pharmacy 119.6; Estimated Glomerular Filt Rate > 60; Glucose Random 144 mg/dL (60-115); Magnesium 1.6 mg/dL (1.6-2.6); Phosphorus 2.3 mg/dL (2.7-4.5); Potassium 3.2 mmol/L (3.3-5.1); Sodium 147 mmol/L (135-145)
[2021-01-22] MEDS: Chlorhexidine Gluc Oral Rinse 15 ML MOUTHWASH BUCCAL ×3 (08:23→19:53)
[2021-01-22] MEDS: Famotidine/PF 20 MG/2 ML VIAL IVPUSH (08:23)
[2021-01-22] MEDS: lamoTRIgine 25 MG TABLET 50 MG PO ×2 (08:24→19:53)
[2021-01-22] MEDS: Albumin Human 25 % 100 ML IV ×3 (08:44→19:52)
[2021-01-22] MEDS: Calcium Gluconate/NaCl,Iso-Osm 2 GM/100 ML PLAST..BAG IV (08:44)
[2021-01-22] MEDS: Potassium Phosphate 30 MMOL in 0.9 % Sodium Chloride 500 ML 85 MMOL IV (10:08)
--- NOTE | 2021-01-22 10:10 | PM.CNNEP ---
History of Present Illness Reason for Consult Consult date: 01/22/21 Chief Complaint Chief complaint: Encephalopathy History of Present Illness Narrative: Ask to see re: rhabdo and risk of CHETAN. Currently on vent/edated and info obtained form EHR 50-year-old gentleman with underlying history of traumatic brain injury, depression, anxiety, psychotic features, hyperlipidemia, and alcohol abuse admitted on 01/19/2021 for acute alteration of mental status, severe agitation, and psychotic features when he was brought in by police for hallucinations after please found him talking to a lamp in his apartment. His utox was positive for marijuana. However he remained significantly agitated and unresponsive to of initial treatment with parenteral under psychotic, benzodiazepines, and antihistamines. He has been admitted to intensive care unit on a sedative drip and intubated Notd incr CPK on adm UOP has been good on IVF and CPK grad decr. Review of Systems Review of Systems Yes all other systems are reviewed and are negative and Unobtainable due to mental status PMFSH Social History Social History Household Members: Unknown / Unable to assess Housing: Unknown / Unable to assess Alcohol intake: unknown Smoking Status: Unknown if ever smoked Substance Use Type: Marijuana service: No Current occupational status: unemployed Meds Allergies Allergy/AdvReac Type Severity Reaction Status Date / Time No Known Allergies Allergy Verified 01/19/21 02:09 Active Medications: Current Medications Generic Name Dose Route Start Last Admin Trade Name Freq PRN Reason Stop Dose Admin Acetaminophen 650 mg 01/19/21 19:39 01/22/21 01:55 Acetaminophen Oral Liquid 650 Mg/20.3 Ml Solution PO 650 mg Q6H PRN Administration Fever Chlorhexidine Gluconate 15 ml 01/19/21 21:00 01/22/21 08:23 Chlorhexidine Gluc Oral Rinse 15 Ml Mouthwash BUCCAL 15 ml TID KAYLEIGH Administration Cisatracurium Besylate 15 mg 01/20/21 09:43 Cisatracurium Besylate 20 Mg/10 Ml Vial IVPUSH ONCE PRN Ventilator synchrony Enoxaparin Sodium 40 mg 01/19/21 15:00 01/21/21 14:32 Enoxaparin Sodium 40 Mg/0.4 Ml Syringe SUBCUT 40 mg Q24H KAYLEIGH Administration Famotidine 20 mg 01/20/21 09:00 01/22/21 08:23 Famotidine/Pf 20 Mg/2 Ml Vial IVPUSH 20 mg DAILY KAYLEIGH Administration Folic Acid 2 mg 01/20/21 09:00 01/22/21 08:25 Folic Acid 1 Mg/0.2 Ml Syringe IVPUSH 2 mg DAILY KAYLEIGH Administration Propofol 1,000 mg in 100 mls @ 0 mls/hr 01/19/21 18:15 01/22/21 06:08 Diprivan IVCONT 50 mcg/kg/min .Q0M KAYLEIGH 23.13 mls/hr Administration Protocol Per Protocol Dextrose/Lactated Ringer's 1,000 mls @ 200 mls/hr 01/20/21 08:00 01/22/21 06:00 D5lr IVCONT 200 mls/hr .Q5H KAYLEIGH Administration Midazolam HCl 50 mg in 50 mls @ 2 mls/hr 01/20/21 10:30 01/22/21 09:06 Versed IVCONT 1 mg/hr .Q24H KAYLEIGH 1 mls/hr Infusion 2 MG/HR Fentanyl 1,000 mcg in 100 mls @ 0 mls/hr 01/21/21 09:15 01/22/21 03:05 Sublimaze/Ns IVCONT 50 mcg/hr .Q0M KAYLEIGH 5 mls/hr Titration Protocol Per Protocol Ampicillin Sodium/Sulbactam 100 mls @ 200 mls/hr 01/21/21 11:45 01/22/21 06:09 Sodium 3 gm/ Sodium Chloride IV Infused Q6H KAYLEIGH Infusion Albumin Human 100 mls @ 100 mls/hr 01/22/21 08:30 01/22/21 09:58 Kedbumin 25 % IV 01/23/21 03:29 Infused Q6H KAYLEIGH Infusion Potassium Phosphate 30 mmol/ 510 mls @ 85 mls/hr 01/22/21 08:16 01/22/21 10:08 Sodium Chloride IV 01/22/21 14:15 85 mls/hr ONCE ONE Administration Calcium Gluconate 2 gm in 100 mls @ 50 mls/hr 01/22/21 08:16 01/22/21 08:44 Calcium Gluconate IV 01/22/21 10:15 50 mls/hr ONCE ONE Administration Lamotrigine 50 mg 01/20/21 14:45 01/22/21 08:24 Lamotrigine 25 Mg Tablet PO 50 mg BID KAYLEIGH Administration Ondansetron HCl 4 mg 01/19/21 14:41 Ondansetron Hcl 4 Mg/2 Ml Vial IVPUSH Q8H PRN Nausea Home Medications Medication Instructions Recorded Confirmed Last Taken Type cholecalciferol (vitamin D3) 1 cap PO DAILY 01/19/21 01/22/21 Unknown History [Vitamin D3] citalopram 1 tab PO DAILY 01/19/21 01/22/21 Unknown History fenofibrate nanocrystallized 1 tab PO DAILY 01/19/21 01/22/21 Unknown History naltrexone 1 tab PO DAILY PRN 01/19/21 01/22/21 Unknown History quetiapine 1 tab PO BEDTIME 01/19/21 01/22/21 Unknown History quetiapine 1 tab PO BEDTIME 01/19/21 01/22/21 Unknown History quetiapine 1 tab PO BID 01/19/21 01/22/21 Unknown History Physical Exam Vital Signs: Last Vital Signs Temp 102.4 F H 01/22/21 09:54 Pulse 77 01/22/21 09:54 Resp 20 01/22/21 09:54 BP 90/58 L 01/22/21 09:54 Pulse Ox 97 01/22/21 09:54 Body Mass Index 29.2 Skin General skin exam: no rashes or lesions noted Extrem General: Yes normal to inspection, Yes no pedal edema, No clubbing, No cyanosis and Yes other Psych Speech and movement: Pressured speech present Results Lab Results Result Diagrams: 01/22/21 05:39 01/22/21 05:39 Lab results: Chemistry 01/20/21 01/20/21 01/21/21 05:51 05:51 04:58 Sodium 146 H 146 H 144 Potassium 3.6 3.6 3.2 L Carbon Dioxide 20 L 20 L 25 BUN 20 H D 21 H 11 Creatinine 1.14 1.20 0.82 Calcium 9.2 D 9.3 8.4 D Phosphorus 3.3 1.7 L 01/22/21 05:39 Sodium 147 H Potassium 3.2 L Carbon Dioxide 27 BUN 7 L Creatinine 0.81 Calcium 7.8 L D Phosphorus 2.3 L Hematology 01/19/21 01/20/21 01/21/21 18:51 05:51 04:58 WBC 11.6 H 11.7 H 6.6 Hgb 13.0 L 12.8 L 12.5 L Plt Count 103 L 117 L 129 L 01/22/21 05:39 WBC 6.1 Hgb 11.4 L Plt Count 133 L Assessment and Plan (1) Acute respiratory failure: Status: Acute 1. Rhabdo: not complete ly clear as to culprit for rhabdlo but good news is CPK are grad decr and Scr remains preserved and UOP 40-50/hr 2. AMS: on vent sedation REC: cont IVF to maintian UOP 50-100/hr tpo prevent rhabdo ATN, (usu CPKs are above 5000 to cause ATN); if UOP decr then incr IVF; if SCr imce then consider alkanizing urine ith IV NaHCO3; cont to replace divalents will follow with team (2) Encephalopathy, toxic: Status: Acute
--- NOTE | 2021-01-22 10:11 | PM.CCPN ---
Subjective Subjective Date of Service: 01/22/21 Interval History: ICU day 5 for toxic encephalopathy, acute respiratory failure acute renal failure, rhabdomyolysis, substance abuse. 50-year-old gentleman with underlying history of traumatic brain injury, depression, anxiety, psychotic features, hyperlipidemia, and alcohol abuse admitted on 01/19/2021 for acute alteration of mental status, severe agitation, and psychotic features when he was brought in by police for hallucinations after please found him talking to a lamp in his apartment. His utox was positive for marijuana. However he remained significantly agitated and unresponsive to of initial treatment with parenteral under psychotic, benzodiazepines, and antihistamines. He has been admitted to intensive care unit on a sedative drip. His hospital course has been further complicated by progressive agitation requiring several sedative drips, intubation for airway protection while on sedation, pulmonary aspiration with aspiration pneumonitis versus pneumonia, and development of acute kidney injury secondary to rhabdomyolysis, No events overnight. Continues to require high-level of sedative drips. Physical Exam Vital Signs: Vital Signs: Last Vital Signs Temp 102.4 F H 01/22/21 09:54 Pulse 77 01/22/21 09:54 Resp 20 01/22/21 09:54 BP 90/58 L 01/22/21 09:54 Pulse Ox 97 01/22/21 09:54 Body Mass Index 29.2 Const: General: no acute distress and other (Sedated on the vent) Eyes: Sclerae: sclerae normal EOM: EOMs intact bilaterally Neck: Neck: Yes no lymphadenopathy, Yes trachea midline and Yes supple Resp: Auscultation: crackles (Right basilar) Cardio: Rate: regular rate Rhythm: regular rhythm Heart sounds: no gallops, no murmurs and no rubs GI: Palpation (GI): Soft to palpation and Other GI palpation findings present ( Nontender) Auscultation: normal bowel sounds Extrem: General: Yes no pedal edema, No clubbing and No cyanosis Objective Data Labs CBC & Chem 7: 01/22/21 05:39 01/22/21 05:39 Labs: Laboratory Results - last 24 hr 01/21/21 01/21/21 01/22/21 04:58 18:09 05:39 WBC 6.1 RBC 3.65 L Hgb 11.4 L Hct 34.0 L MCV 93.2 MCH 31.2 MCHC 33.5 RDW 14.6 Plt Count 133 L MPV 11.1 Immature Gran % (Auto) 0.2 Neut % (Auto) 56.0 Lymph % (Auto) 31.1 [place] % (Auto) 11.6 H Eos % (Auto) 0.8 Baso % (Auto) 0.3 Lymph # (Auto) 1.9 [place] # (Auto) 0.7 Eos # (Auto) 0.1 Baso # (Auto) 0.0 Abs Immat Gran (auto) 0.01 Absolute Neuts (auto) 3.4 Absolute Nucleated RBC 0.000 Nucleated RBC % (auto) 0.0 VBG pH VBG pCO2 VBG pO2 VBG HCO3 VBG O2 Saturation VBG Base Excess Sodium Potassium Chloride Carbon Dioxide Anion Gap BUN Creatinine Estim Creat Clear Calc Estimated GFR Random Glucose Calcium Phosphorus Magnesium Total Bilirubin AST ALT Alkaline Phosphatase Total Creatine Kinase 5128 H 4746 H Total Protein Albumin 01/22/21 01/22/21 05:39 05:47 WBC RBC Hgb Hct MCV MCH MCHC RDW Plt Count MPV Immature Gran % (Auto) Neut % (Auto) Lymph % (Auto) [place] % (Auto) Eos % (Auto) Baso % (Auto) Lymph # (Auto) [place] # (Auto) Eos # (Auto) Baso # (Auto) Abs Immat Gran (auto) Absolute Neuts (auto) Absolute Nucleated RBC Nucleated RBC % (auto) VBG pH 7.50 H VBG pCO2 30 VBG pO2 68 VBG HCO3 24 VBG O2 Saturation 95.0 VBG Base Excess 1.9 Sodium 147 H Potassium 3.2 L Chloride 114 H Carbon Dioxide 27 Anion Gap 9 L BUN 7 L Creatinine 0.81 Estim Creat Clear Calc 119.6 Estimated GFR > 60 Random Glucose 144 H Calcium 7.8 L D Phosphorus 2.3 L Magnesium 1.6 Total Bilirubin 0.5 AST 191 H ALT 125 H Alkaline Phosphatase 50 D Total Creatine Kinase Total Protein 5.0 L Albumin 3.1 L Microbiology Microbiology Results: Microbiology 01/21/21 11:55 Sputum - Suctioned Gram Stain - Final 01/21/21 11:55 Sputum - Suctioned Sputum Culture - Preliminary Gram negative eyvgeniy 01/19/21 20:04 Blood - Venous Blood Culture - Preliminary No growth after 48 hours. 01/19/21 20:01 Blood - Venous Blood Culture - Preliminary No growth after 48 hours. Progress Note: A&P Assessment and plan (1) Acute respiratory failure: Status: Acute Assessment and Plan: Assessment: 50-year-old gentleman admitted with toxic encephalopathy, likely secondary to substance abuse, requiring sedative drips and intubation for airway protection. Plan: Neuro: Appears to have toxic encephalopathy secondary to substance abuse. CT head with no acute findings. Continue to titrate off sedative drips as tolerated. Cardiac: No acute issues. Pulmonary: Acute respiratory failure requiring intubation and ventilatory support for airway protection secondary to high sedation requirements. Also with pulmonary aspiration resulting aspiration pneumonitis versus pneumonia, covered with Unasyn. Continue to titrate off as tolerated. Renal: Acute kidney injury secondary to rhabdomyolysis, CPK level is down trending. Nephrology service care appreciated. Non oliguric. Continue with IV fluid support. Continue to monitor renal indices and urine output. Endo: No acute issues. GI: No acute issues. ID: Pulmonary aspiration with resultant aspiration pneumonia versus pneumonitis, empirically covered with Unasyn. Heme/Onc: No acute issues. Psych: No acute issues. Miscellaneous: Continue on Lamictal for mood control Prophylaxis: Famotidine, Lovenox Diet: Tube feeds Critical care time spent: 60 minutes (2) Encephalopathy, toxic: Status: Acute (3) Acute renal failure: Status: Acute (4) Rhabdomyolysis: Status: Acute (5) Pulmonary aspiration: Status: Acute Time Spent With Patient Total time spent with greater than 50% in coordination of care (as documented) at patient's floor/unit and/or counseling patient:: 0 Critical Care Time Critical Care Time (minutes): 60
[2021-01-22] MEDS: Enoxaparin Sodium 40 MG/0.4 ML SYRINGE SUBCUT (13:57)
[2021-01-22] MEDS: Lactated Ringers 1,000 ML 200 ML IVCONT ×2 (15:14→19:53)
--- NOTE | 2021-01-22 15:33 | PC.NURSE ---
Pt on propofol, fentanyl and versed this am for sedation/ versed titrated down per md and turned off this afternoon. Pt sedate, arousable with repositioning but back to sleep with no stimuation, restraints remain for patient safety Thick cream secretions suctioned via inline, continues on abx bp trending 80s systollically this am, md aware, temp 102 max, albumin ordered and given electrolytes replaced started on tube feeds, Jevity to titrate to max of 60 with 240ml water flushes q 6
[2021-01-22] MEDS: fentaNYL citrate/NS 1,000 MCG/100 ML PLAST..BAG 5 MCG IVCONT (22:14)
[2021-01-23] VITALS (38 sets, daily range): BP systolic 91–208; BP diastolic 51–94; PULSE 59–139; RESP 19–43; TEMP 3–38.4; O2SAT 87–100; BMI 31.6
[2021-01-23] MEDS: Lactated Ringers 1,000 ML 200 ML IVCONT ×3 (00:59→12:11)
[2021-01-23] MEDS: Albumin Human 25 % 100 ML IV (01:40)
[2021-01-23] MEDS: propofoL 1,000 MG/100 ML VIAL 23.13 MG IVCONT ×5 (01:40→19:48)
[2021-01-23] MEDS: Ampicillin Sodium/Sulbactam Na 3 GM in 0.9 % Sodium Chloride 100 ML IV ×3 (05:00→17:43)
[2021-01-23 05:48] LABS: MANUAL DIFF FLAG NO
[2021-01-23 05:50] LABS: VBG Base Excess 0.9 mmol/L; VBG HCO3 22 mmol/L (22-26); VBG pCO2 25 mmHg; VBG pH 7.54 (7.32-7.43); VBG pO2 114 mmHg
[2021-01-23 05:53] LABS: Venous Blood Gas Refer to POC result
[2021-01-23 05:59] LABS: Basophils Percent Auto 0.4 % (0-2); Eosinophils Absolute Auto 0.1 X10*3/uL (0.0-0.4); Eosinophils Percent Auto 1.6 % (0-4); Hematocrit 31.6 % (42-52); Hemoglobin 10.5 g/dl (14.0-18.0); Imm Gran Abs Auto 0.03 X10*3/uL (0.00-0.03); Imm Gran Pct Auto 0.4 % (0.0-0.4); Lymphocytes Absolute Auto 2.6 X10*3/uL (1.2-4.9); Lymphocytes Percent Auto 31.6 % (20-40); Mean Corpuscular HGB Conc 33.2 g/dl (31.0-36.0); Mean Corpuscular Hemoglobin 31.1 pg (27.0-33.0); Mean Corpuscular Volume 93.5 fL (80-98); Mean Platelet Volume 12.1 fL (9.4-12.4); Monocytes Percent Auto 12.8 % (2-11); Neutrophils Absolute Auto 4.3 X10*3/uL (2.0-8.3); Neutrophils Percent Auto 53.2 % (45-73); Platelet Count 147 X10*3/uL (160-400); Red Blood Count 3.38 X10*6/uL (4.60-5.80); Red Cell Distribution Width 14.9 % (11.0-16.0); White Blood Count 8.1 X10*3/uL (4.8-10.8)
[2021-01-23 06:27] LABS: Alanine Aminotransferase 141 U/L (0-40); Albumin Level 3.5 g/dL (3.5-5.0); Alkaline Phosphatase 47 U/L (39-117); Anion Gap 9 (12-20); Aspartate Amino Transferase 212 U/L (5-37); Bilirubin Total 0.4 mg/dL (0.0-1.0); Blood Urea Nitrogen 7 mg/dL (9-16); Calcium 7.9 mg/dL (8.4-10.2); Carbon Dioxide 23 mmol/L (22-29); Chloride 113 mmol/L (96-108); Creatinine Clr Calc Pharmacy 141.4; Estimated Glomerular Filt Rate > 60; Glucose Random 127 mg/dL (60-115); Magnesium 1.4 mg/dL (1.6-2.6); Potassium 3.4 mmol/L (3.3-5.1); Sodium 142 mmol/L (135-145)
--- NOTE | 2021-01-23 08:55 | PC.NURSE ---
Addendum entered by Mic Ewing RN 01/23/21 09:28: Tube feed off at 0845 Addendum entered by Mic Ewing RN 01/23/21 09:23: Pressure support 5/5 started - see vent documentation. patient still agitated w/ 50mcg prop & 50mcg fent drips running - pulling at restraints. Tolerating Pres support. Dr Quezada at bedside, plan to extubate - canceled lactate level. Original Note: Patient agitated w/ fent & propofol running. Dr Quezada at bedside - aware of patient agitation - ordered stat lactic & changed vent settings to AC 10 from 20, still overbreathing - RR 18. In-line secretions small amt thick cream sputum.
[2021-01-23] MEDS: Potassium Phosphate 30 MMOL in 0.9 % Sodium Chloride 500 ML 85 MMOL IV (08:58)
[2021-01-23] MEDS: Famotidine/PF 20 MG/2 ML VIAL IVPUSH (09:06)
[2021-01-23] MEDS: Calcium Gluconate/NaCl,Iso-Osm 1 GM/50 ML PLAST..BAG IV (09:06)
[2021-01-23] MEDS: Chlorhexidine Gluc Oral Rinse 15 ML MOUTHWASH BUCCAL ×3 (09:06→19:48)
[2021-01-23] MEDS: Magnesium Sulfate/H2O 2 GM/50 ML PIGGYBACK IV (09:06)
--- NOTE | 2021-01-23 10:05 | MHC.CLN ---
F/U PT RECEIVING TF JEVITY AT MAX GOAL RATE 60CC/HR WITH 240CC FREE WATER Q 6 HRS PROVIDES 1526KCALS (2136KCALS WITH SEDATION; 27KCALS/KG), 64G PROTEIN (.8G/KG), 2162CC TOTAL WATER FROM FORMULA AND FLUSHES (27CC/KG) MONITOR TOLERANCE, RESIDUALS AND LYTES
[2021-01-23] MEDS: lamoTRIgine 25 MG TABLET 50 MG PO ×2 (10:56→20:26)
[2021-01-23] MEDS: fentaNYL citrate/PF 100 MCG/2 ML VIAL IVPUSH (10:59)
[2021-01-23] MEDS: LORazepam 2 MG/ML VIAL IVPUSH ×2 (11:09→20:10)
[2021-01-23] MEDS: fentaNYL citrate/NS 1,000 MCG/100 ML PLAST..BAG 10 MCG IVCONT (12:15)
--- NOTE | 2021-01-23 13:05 | P.PCNCC_ITS ---
Procedures Central Line Placement Left SC: Central Line Comments: PROCEDURE: Insertion left subclavian central venous line. INDICATION: Pneumonia with acute respiratory failure: IV access; blood draws; resp monitoring. ANESTHESIA: Local plus IV sedation. PROCEDURE: Vascular ultrasound was used to examine the left side. A large compressible supraclavic left subclavian vein was noted. Vascular ultrasound was then used to examine the left subclavian area. A large broad compressible vein was noted superior to the SCL artery.. The left subclavian, supraclavicular, and left neck areas were widely prepped and draped in full sterile fashion. The infraclavic subclavian vein was located by US. Local anesthesia was applied to the entrance site with the US probe oriented longitudinally. The infraclavic left subclavian vein was cannulated on the 1st pass of the 18 gauge thin wall under direct US guidance. The wire was threaded without incident. A 7 [place] by 20 cm triple-lumen catheter was advanced into the vein up to the hub via the Seldinger technique without incident. There was good blood return x3. The catheter was sutured x3 and a Biopatch and dry sterile dressing were applied. Postop chest x-ray showed the line in perfect position with no pneumothorax. The patient tolerated the procedure well w no complications.
[2021-01-23] MEDS: propofoL 1,000 MG/100 ML VIAL 27.76 MG IVCONT (13:06)
--- NOTE | 2021-01-23 13:06 | P.PNCC_ITS ---
Subjective Subjective Date of Service: 01/23/21 Interval History: Mr. Moise was admitted to ICU on January 19 with delirium tremens unable to be controlled in the ED with the phenobarbital protocol and other pharmaceuticals. The patient is a 50-year-old male never before been seen at [facility]. According to the brother, the patient has a history of traumatic brain injury, depression, anxiety, and alcohol abuse. The patient had been in a detox program 1 year ago and was sober for approximately 7 months. But the brother believes that the patient has been drinking heavily recently. The patient did have an episode of delirium tremens about 10 years ago and did require a hospitalization in the past for depression. Police were called by the patient on the night of January 18 because he was convinced that people broke into his house and stole his positions. At the scene, it was obvious that the patient was hallucinating. EMS was called and the patient was brought into the ED early on January 19. In the ED, the patient was confused, paranoid, and having visual hallucinations. He was tachycardic and hypertensive. He told the ED staff that he takes Seroquel. Labs were notable for a calcium of 12, mildly bumped ammonia, thrombocytopenia, and transaminitis. The alcohol level was negative. U tox was positive for marijuana. Head CT was unremarkable. The patient was felt to be having classic delirium tremens. He was given normal saline, thiamine, folate, and multivitamins. The patient was admitted to Medicine. Before he could leave the ED, the patient became more agitated. He was begun on the phenobarbital protocol. He received his full dose of phenobarbital IM. He continued to be agitated and he was treated with Haldol 10 mg IM and Benadryl 50 mg IV. The patient was still agitated, and was therefore transferred to the ICU service. He was intubated for airway protection. There was a question of whether the patient aspirated. After admission to the ICU, he required paralytic agent several times for difficult to control agitation and ventilator dyssynchrony. His calcium came down easily with the IV fluids. His creatinine bumped slightly. CPK was noted to be 5100. Despite that, the patient was making good urine and had only a transient bump in his creatinine to a peak of 1.2. IV fluids were increased, and the creatinine came down to normal immediately. Sputum Gram stain from January 21 showed 4+ polys and 3+ epithelial cells with a polymicrobial carter, and is growing E coli and Streptococcus. Today, he?s sedated on propofol at 50ug and easily breaking thru that, altho he?s not interactive. Fentanyl did not help, but when we gave him Ativan 2mg, he calmed right down, and his HR and RR slowed. See Vital Signs below. HR 70, SR. BP 100/60. We had him on PSV down to 5cm briefly, but he tired out, went back on AC. No JVD at 30?. Chest shows coarse crackles. Tracheal secretions are thick and bocanegra, grossly purulent. Normal exp phase. Trivial edema. LABORATORY DATA: As below. IMAGING: CXR post line placement (sep procedure) shows increasing bilateral perihilar and lower lung airspace disease, with right and possibly left pleural effusions. IMPRESSION: 1. Toxic/metabolic encephalopathy secondary to alcohol withdrawal. 2. Aspiration pneumonia. 3. Acute respiratory failure secondary to requirement for airway protection + aspiration pneumonia. Not extubatable. 4. Acute kidney injury secondary to rhabdomyolysis. Resolved. 5. ID: Pulmonary aspiration with aspiration pneumonia. Growing Ecoli and strep. Empirically covered with Unasyn. I?ll reculture sputum tomorrow 6. Neuro: Started on Lamictal for behavior control, with added benzo prn. CVL placed for IV access and resp monitoring (sep procedure) Critical care time (including full chart review, and hospital course summary; multiple visits to the bedside; multiple discussions with Dr. Aj; excluding separate procedures): 80+ minutes. Physical Exam Vital Signs: Vital Signs: Last Vital Signs Temp 98.8 F 01/23/21 12:59 Pulse 66 01/23/21 12:59 Resp 20 01/23/21 12:59 BP 101/62 01/23/21 12:59 Pulse Ox 98 01/23/21 12:59 Body Mass Index 31.6 Objective Data Labs CBC & Chem 7: 01/24/21 05:40 01/24/21 05:40 Labs: Laboratory Results - last 24 hr 01/23/21 01/23/21 01/23/21 05:33 05:34 05:44 WBC 8.1 RBC 3.38 L Hgb 10.5 L Hct 31.6 L MCV 93.5 MCH 31.1 MCHC 33.2 RDW 14.9 Plt Count 147 L MPV 12.1 Immature Gran % (Auto) 0.4 Neut % (Auto) 53.2 Lymph % (Auto) 31.6 [place] % (Auto) 12.8 H Eos % (Auto) 1.6 Baso % (Auto) 0.4 Lymph # (Auto) 2.6 [place] # (Auto) 1.0 Eos # (Auto) 0.1 Baso # (Auto) 0.0 Abs Immat Gran (auto) 0.03 Absolute Neuts (auto) 4.3 Absolute Nucleated RBC 0.000 Nucleated RBC % (auto) 0.0 VBG pH 7.54 H VBG pCO2 25 VBG pO2 114 VBG HCO3 22 VBG O2 Saturation 98.0 VBG Base Excess 0.9 Sodium 142 Potassium 3.4 Chloride 113 H Carbon Dioxide 23 Anion Gap 9 L BUN 7 L Creatinine 0.71 Estim Creat Clear Calc 141.4 Estimated GFR > 60 Random Glucose 127 H Calcium 7.9 L Phosphorus 2.0 L Magnesium 1.4 L* Total Bilirubin 0.4 AST 212 H ALT 141 H Alkaline Phosphatase 47 Total Protein 5.0 L Albumin 3.5 Microbiology Microbiology Results: Microbiology 01/21/21 11:55 Sputum - Suctioned Gram Stain - Final 01/21/21 11:55 Sputum - Suctioned Sputum Culture - Preliminary Escherichia coli Group F Streptococcus 01/19/21 20:04 Blood - Venous Blood Culture - Preliminary No growth after 48 hours. 01/19/21 20:01 Blood - Venous Blood Culture - Preliminary No growth after 48 hours. Progress Note: A&P Time Spent With Patient Time: Total time spent is greater than 50% in coordination of care (as documented) at patient's floor/unit and/or counseling patient: Total time spent with greater than 50% in coordination of care (as documented) at patient's floor/unit and/or counseling patient:: 0 Critical Care Time Critical Care Time (minutes): 90
--- NOTE | 2021-01-23 13:50 | MHC.CM.PN ---
Pt remains in ICU: plans to extubate today - may need sedatives d/t combative and agitated behavior. D/C plan was for a return to home with room mate: Pt does not have a PCP: task sent to CM office for assistance. Pt's brother should be able to provide transportation CM to follow for any changes in d/c plan
[2021-01-23 14:09] LABS: Venous Blood Gas Refer to POC result
[2021-01-23 14:10] LABS: VBG Base Excess -2.2 mmol/L; VBG HCO3 21 mmol/L (22-26); VBG pCO2 32 mmHg; VBG pH 7.42 (7.32-7.43); VBG pO2 45 mmHg
[2021-01-23] MEDS: Enoxaparin Sodium 40 MG/0.4 ML SYRINGE SUBCUT (14:17)
[2021-01-23 14:34] LABS: Lactic Acid 1.2 mmol/L (0.5-2.0)
--- NOTE | 2021-01-23 17:36 | PC.NURSE ---
SHIFT NOTE RECEIVED REPORT PLAN FOR EXTUBATION, TUBE FEEDS PLACED ON HOLD BY PREVIOUS RN. DESPITES PROPOFOL AND FENTANYL INFUSION PT WITH INCREASED WOB AND DISTRESSED ONCE PLACED ON PSV WITH HR 120-140 RR 40-45 PULLING AT RESTRAINTS BUT DOES NOT FOLLOW COMMANDS. PT NOTED TO HAVE COPIOUS THICK ANDREWS SECRETIONS VIA ETT # 20 ANGIO TO RIGHT HAND NOTED TO BE INFILTRATED WITH KPHOS INFUSING. DR. FINN TO BEDSIDE TO ASSESS PT, ORDERS GIVEN TO INCREASE PROP TO 60 AND GIVEN FENTANYL 100 MCG IVP- NEITHER HELPED INCREASE PT COMFORT. ATIVEN 2 MG IVP GIVEN PER MD ORDERS WITH IMMEDIATE RELIEF NOTED, HR DECREASED 60-70 RR 20 PT SWITCHED TO AC MODE AND PT ASSESSED FOR LEFT SC TLC PLACED UNDER US WITHOUT DIFFICULTY. PT REMAINED COMFORTABLE AFTER ATIVAN ADM BUT REMAINS IN BILAT WRIST RETRAINTS. WILL CONTINUE TO ASSESS AND MONITOR
[2021-01-23] MEDS: Lactated Ringers 1,000 ML 100 ML IVCONT (18:43)
[2021-01-24] VITALS (30 sets, daily range): BP systolic 91–144; BP diastolic 49–81; PULSE 56–87; RESP 10–22; TEMP 36.8–37.4; O2SAT 92–99; BMI 32.4
[2021-01-24] MEDS: propofoL 1,000 MG/100 ML VIAL 23.13 MG IVCONT ×7 (00:12→22:01)
[2021-01-24] MEDS: fentaNYL citrate/NS 1,000 MCG/100 ML PLAST..BAG 10 MCG IVCONT ×3 (00:12→22:02)
[2021-01-24] MEDS: Ampicillin Sodium/Sulbactam Na 3 GM in 0.9 % Sodium Chloride 100 ML IV ×5 (00:12→22:02)
[2021-01-24] MEDS: LORazepam 2 MG/ML VIAL IVPUSH ×3 (03:50→18:14)
[2021-01-24] MEDS: Lactated Ringers 1,000 ML 100 ML IVCONT ×3 (04:19→22:03)
[2021-01-24 05:51] LABS: MANUAL DIFF FLAG NO
[2021-01-24 05:54] LABS: Basophils Percent Auto 0.4 % (0-2); Eosinophils Absolute Auto 0.2 X10*3/uL (0.0-0.4); Eosinophils Percent Auto 3.5 % (0-4); Hemoglobin 10.4 g/dl (14.0-18.0); Imm Gran Abs Auto 0.06 X10*3/uL (0.00-0.03); Imm Gran Pct Auto 0.9 % (0.0-0.4); Lymphocytes Absolute Auto 1.2 X10*3/uL (1.2-4.9); Mean Corpuscular HGB Conc 33.5 g/dl (31.0-36.0); Mean Corpuscular Hemoglobin 31.4 pg (27.0-33.0); Mean Corpuscular Volume 93.7 fL (80-98); Monocytes Absolute Auto 1.1 X10*3/uL (0.1-1.2); Monocytes Percent Auto 15.5 % (2-11); Neutrophils Absolute Auto 4.2 X10*3/uL (2.0-8.3); Neutrophils Percent Auto 61.7 % (45-73); Platelet Count 198 X10*3/uL (160-400); Red Blood Count 3.31 X10*6/uL (4.60-5.80); Red Cell Distribution Width 14.8 % (11.0-16.0); White Blood Count 6.9 X10*3/uL (4.8-10.8)
[2021-01-24 05:56] LABS: VBG Base Excess -0.6 mmol/L; VBG HCO3 23 mmol/L (22-26); VBG pCO2 34 mmHg; VBG pH 7.43 (7.32-7.43); VBG pO2 51 mmHg
[2021-01-24 05:57] LABS: Venous Blood Gas Refer to POC result
[2021-01-24 06:41] LABS: Alanine Aminotransferase 108 U/L (0-40); Albumin Level 2.9 g/dL (3.5-5.0); Alkaline Phosphatase 69 U/L (39-117); Anion Gap 10 (12-20); Aspartate Amino Transferase 131 U/L (5-37); Bilirubin Total 0.6 mg/dL (0.0-1.0); Blood Urea Nitrogen 9 mg/dL (9-16); C Reactive Protein 15.49 mg/dL (< or = 0.50); Calcium 7.9 mg/dL (8.4-10.2); Carbon Dioxide 23 mmol/L (22-29); Chloride 112 mmol/L (96-108); Creatinine Clr Calc Pharmacy 156.8; Estimated Glomerular Filt Rate > 60; Glucose Random 111 mg/dL (60-115); Magnesium 1.6 mg/dL (1.6-2.6); Potassium 3.2 mmol/L (3.3-5.1); Sodium 142 mmol/L (135-145); Total Protein 4.5 g/dL (6.5-8.0)
[2021-01-24] MEDS: Famotidine/PF 20 MG/2 ML VIAL IVPUSH (08:21)
[2021-01-24] MEDS: Chlorhexidine Gluc Oral Rinse 15 ML MOUTHWASH BUCCAL ×3 (08:21→22:02)
[2021-01-24] MEDS: lamoTRIgine 25 MG TABLET 50 MG PO ×2 (08:21→22:02)
--- NOTE | 2021-01-24 09:34 | PC.NURSE ---
Shift eval 7p-7a - Patient tolerating AC vent settings. Weaned oxygen from 55% to 30% without issue. Very agitated w/ care - body becomes very rigid, pulling up on restraints with Q2H repositioning. PRN ativan given x2 @ 2009 & 0350 with repositioning. Mod amt in-line secretions - cream/bocanegra & clear oral secretions. Very easily arousable to verbal stimuli, but does not follow directions or fully track. Tolerating tube feed.
--- NOTE | 2021-01-24 10:23 | PM.CCPN ---
Subjective Subjective Date of Service: 01/24/21 Interval History: Mr. Moise was admitted to ICU on January 19 with delirium tremens unable to be controlled in the ED with the phenobarbital protocol and other pharmaceuticals. The patient is a 50-year-old male never before been [place] [facility] [place] According to the brother, the patient has a history of traumatic brain injury, depression, anxiety, and alcohol abuse. The patient had been in a detox program 1 year ago and was sober for approximately 7 months. But the brother believes that the patient has been drinking heavily recently. The patient did have an episode of delirium tremens about 10 years ago and did require a hospitalization in the past for depression. Police were called by the patient on the night of January 18 because he was convinced that people broke into his house and stole his positions. At the scene, it was obvious that the patient was hallucinating. EMS was called and the patient was brought into the ED early on January 19. In the ED, the patient was confused, paranoid, and having visual hallucinations. He was tachycardic and hypertensive. He told the ED staff that he takes Seroquel. Labs were notable for a calcium of 12, mildly bumped ammonia, thrombocytopenia, and transaminitis. The alcohol level was negative. U tox was positive for marijuana. Head CT was unremarkable. The patient was felt to be having classic delirium tremens. He was given normal saline, thiamine, folate, and multivitamins. The patient was admitted to Medicine. While still in the ED before he could be transferred to the floor, the patient became more agitated. He was begun on the phenobarbital protocol. He received his full dose of phenobarbital IM. He continued to be agitated and he was treated with Haldol 10 mg IM and Benadryl 50 mg IV. The patient was still agitated, and was therefore transferred to the ICU service. He was intubated for airway protection. There was a question of whether the patient aspirated. After admission to the ICU, he required paralytic agent several times for difficult to control agitation and ventilator dyssynchrony. His calcium came down easily with the IV fluids. His creatinine bumped slightly. CPK was noted to be 5100. Despite that, the patient was making good urine and had only a transient bump in his creatinine to a peak of 1.2. IV fluids were increased, and the creatinine came down to normal immediately. Sputum Gram stain from January 21 showed 4+ polys and 3+ epithelial cells with a polymicrobial carter, and is growing E coli and Streptococcus. Yesterday he tolerated a PSV trial only briefly, then failed with tachypnea and tachycardia. He had copious thick tracheal secretions. He required prn Ativan for sedation on top of propofol at 50 ug. Today, he?s sedated on propofol at 50ug and fentanyl at 100ug and he?s much more calm. Was given one dose of Ativan prn for bathing. Secretion volume is also much improved. See Vital Signs below. HR 56, BP 122/71. On AC 20/500/30%/+8, Ve is 10L, PIP 23, Sat 96%. CVBG this morning shows 7.43/34/0. Afebrile for 24hrs. No JVD at 30?. Chest shows coarse BS. Normal exp phase. Abd benign. Trivial edema. IV Fluids: LR at 100cc/hr. u/o avg about 50cc/hr. LABORATORY DATA: As below. IMAGING: CXR post line placement (sep procedure) shows increasing bilateral perihilar and lower lung airspace disease, with right and possibly left pleural effusions. IMPRESSION: 1. Toxic/metabolic encephalopathy secondary to alcohol withdrawal. 2. Aspiration pneumonia. 3. Acute respiratory failure secondary to requirement for airway protection + aspiration pneumonia. Not extubatable quite yet bec of secretions. Hopefully tomorrow. 4. Acute kidney injury secondary to rhabdomyolysis. Resolved. 5. ID: Pulmonary aspiration with aspiration pneumonia. Growing Ecoli and strep. Empirically covered with Unasyn. Recultured sputum today. 6. Neuro: Started on Lamictal for behavior control, with added benzo prn. 7. Metabolic: Repleted phos and potassium. 8. Nutrition: On tube feeds. Critical care time: 50+ minutes. Physical Exam Vital Signs: Vital Signs: Last Vital Signs Temp 98.6 F 01/24/21 10:00 Pulse 60 01/24/21 10:00 Resp 20 01/24/21 10:00 BP 120/68 01/24/21 10:00 Pulse Ox 98 01/24/21 10:00 Body Mass Index 32.4 Objective Data Labs CBC & Chem 7: 01/24/21 05:40 01/24/21 05:40 Labs: Laboratory Results - last 24 hr 01/23/21 01/23/21 01/24/21 13:56 14:04 05:40 WBC RBC Hgb Hct MCV MCH MCHC RDW Plt Count MPV Immature Gran % (Auto) Neut % (Auto) Lymph % (Auto) [place] % (Auto) Eos % (Auto) Baso % (Auto) Lymph # (Auto) [place] # (Auto) Eos # (Auto) Baso # (Auto) Abs Immat Gran (auto) Absolute Neuts (auto) Absolute Nucleated RBC Nucleated RBC % (auto) VBG pH 7.42 VBG pCO2 32 VBG pO2 45 VBG HCO3 21 L VBG O2 Saturation 76.0 VBG Base Excess -2.2 Sodium 142 Potassium 3.2 L Chloride 112 H Carbon Dioxide 23 Anion Gap 10 L BUN 9 Creatinine 0.64 Estim Creat Clear Calc 156.8 Estimated GFR > 60 Random Glucose 111 Lactic Acid 1.2 Calcium 7.9 L Magnesium 1.6 Total Bilirubin 0.6 AST 131 H ALT 108 H Alkaline Phosphatase 69 D C-Reactive Protein 15.49 H Total Protein 4.5 L Albumin 2.9 L 01/24/21 01/24/21 05:40 05:49 WBC 6.9 RBC 3.31 L Hgb 10.4 L Hct 31.0 L MCV 93.7 MCH 31.4 MCHC 33.5 RDW 14.8 Plt Count 198 D MPV 12.0 Immature Gran % (Auto) 0.9 H Neut % (Auto) 61.7 Lymph % (Auto) 18.0 L [place] % (Auto) 15.5 H Eos % (Auto) 3.5 Baso % (Auto) 0.4 Lymph # (Auto) 1.2 [place] # (Auto) 1.1 Eos # (Auto) 0.2 Baso # (Auto) 0.0 Abs Immat Gran (auto) 0.06 H Absolute Neuts (auto) 4.2 Absolute Nucleated RBC 0.000 Nucleated RBC % (auto) 0.0 VBG pH 7.43 VBG pCO2 34 VBG pO2 51 VBG HCO3 23 VBG O2 Saturation 84.0 VBG Base Excess -0.6 Sodium Potassium Chloride Carbon Dioxide Anion Gap BUN Creatinine Estim Creat Clear Calc Estimated GFR Random Glucose Lactic Acid Calcium Magnesium Total Bilirubin AST ALT Alkaline Phosphatase C-Reactive Protein Total Protein Albumin Microbiology Microbiology Results: Microbiology 01/21/21 11:55 Sputum - Suctioned Gram Stain - Final 01/21/21 11:55 Sputum - Suctioned Sputum Culture - Final Escherichia coli Streptococcus constellatus 01/19/21 20:04 Blood - Venous Blood Culture - Preliminary No growth after 48 hours. 01/19/21 20:01 Blood - Venous Blood Culture - Preliminary No growth after 48 hours. Progress Note: A&P Time Spent With Patient Time: Total time spent is greater than 50% in coordination of care (as documented) at patient's floor/unit and/or counseling patient: Total time spent with greater than 50% in coordination of care (as documented) at patient's floor/unit and/or counseling patient:: 0 Critical Care Time Critical Care Time (minutes): 60
[2021-01-24] MEDS: Enoxaparin Sodium 40 MG/0.4 ML SYRINGE SUBCUT (14:51)
[2021-01-24] MEDS: Potassium Chloride Packet 20 MEQ PACKET 40 MEQ G-TUBE (18:17)
[2021-01-24] MEDS: Sodium,Potassium Phosphates POWD.PACK 2 PACKET G-TUBE (18:17)
[2021-01-25] VITALS (30 sets, daily range): BP systolic 95–177; BP diastolic 49–104; PULSE 67–146; RESP 8–24; TEMP 37–38.1; O2SAT 91–99; BMI 33.7
[2021-01-25] MEDS: propofoL 1,000 MG/100 ML VIAL 23.13 MG IVCONT ×6 (03:29→22:29)
[2021-01-25 06:19] LABS: MANUAL DIFF FLAG NO
[2021-01-25 06:23] LABS: Basophils Percent Auto 0.4 % (0-2); Eosinophils Absolute Auto 0.3 X10*3/uL (0.0-0.4); Eosinophils Percent Auto 3.8 % (0-4); Hematocrit 36.3 % (42-52); Hemoglobin 12.1 g/dl (14.0-18.0); Imm Gran Abs Auto 0.11 X10*3/uL (0.00-0.03); Imm Gran Pct Auto 1.5 % (0.0-0.4); Lymphocytes Absolute Auto 1.6 X10*3/uL (1.2-4.9); Lymphocytes Percent Auto 21.4 % (20-40); Mean Corpuscular HGB Conc 33.3 g/dl (31.0-36.0); Mean Corpuscular Hemoglobin 31.1 pg (27.0-33.0); Mean Corpuscular Volume 93.3 fL (80-98); Mean Platelet Volume 11.1 fL (9.4-12.4); Monocytes Absolute Auto 1.4 X10*3/uL (0.1-1.2); Monocytes Percent Auto 18.7 % (2-11); NRBC Pct Auto 0.3 /100WBC (0.0-0.2); Neutrophils Percent Auto 54.2 % (45-73); Platelet Count 291 X10*3/uL (160-400); Red Blood Count 3.89 X10*6/uL (4.60-5.80); Red Cell Distribution Width 14.4 % (11.0-16.0); White Blood Count 7.4 X10*3/uL (4.8-10.8)
[2021-01-25] MEDS: Ampicillin Sodium/Sulbactam Na 3 GM in 0.9 % Sodium Chloride 100 ML IV ×4 (06:35→22:30)
[2021-01-25] MEDS: fentaNYL citrate/NS 1,000 MCG/100 ML PLAST..BAG 20 MCG IVCONT (06:57)
[2021-01-25 07:15] LABS: Anion Gap 13 (12-20); Blood Urea Nitrogen 7 mg/dL (9-16); Calcium 8.4 mg/dL (8.4-10.2); Carbon Dioxide 25 mmol/L (22-29); Chloride 108 mmol/L (96-108); Estimated Glomerular Filt Rate > 60; Glucose Random 96 mg/dL (60-115); Magnesium 1.7 mg/dL (1.6-2.6); Phosphorus 3.4 mg/dL (2.7-4.5); Potassium 3.6 mmol/L (3.3-5.1); Sodium 142 mmol/L (135-145)
[2021-01-25 07:25] LABS: Procalcitonin 0.09 ng/mL
[2021-01-25] MEDS: LORazepam 2 MG/ML VIAL IVPUSH (09:03)
--- NOTE | 2021-01-25 09:09 | PM.CCPN ---
Subjective Subjective Date of Service: 01/25/21 Interval History: Mr. Moise was admitted to ICU on January 19 with delirium tremens unable to be controlled in the ED with the phenobarbital protocol and other pharmaceuticals. The patient is a 50-year-old male never before been seen at [facility] [place]. According to the brother, the patient has a history of traumatic brain injury, depression, anxiety, and alcohol abuse. The patient had been in a detox program 1 year ago and was sober for approximately 7 months. But the brother believes that the patient has been drinking heavily recently. The patient did have an episode of delirium tremens about 10 years ago and did require a hospitalization in the past for depression. Police were called by the patient on the night of January 18 because he was convinced that people broke into his house and stole his positions. At the scene, it was obvious that the patient was hallucinating. EMS was called and the patient was brought into the ED early on January 19. In the ED, the patient was confused, paranoid, and having visual hallucinations. He was tachycardic and hypertensive. He told the ED staff that he takes Seroquel. Labs were notable for a calcium of 12, mildly bumped ammonia, thrombocytopenia, and transaminitis. The alcohol level was negative. U tox was positive for marijuana. Head CT was unremarkable. The patient was felt to be having classic delirium tremens. He was given normal saline, thiamine, folate, and multivitamins. The patient was admitted to Medicine. While still in the ED before he could be transferred to the floor, the patient became more agitated. He was begun on the phenobarbital protocol. He received his full dose of phenobarbital IM. He continued to be agitated and he was treated with Haldol 10 mg IM and Benadryl 50 mg IV. The patient was still agitated, and was therefore transferred to the ICU service. He was intubated for airway protection. There was a question of whether the patient aspirated. After admission to the ICU, he required paralytic agent several times for difficult to control agitation and ventilator dyssynchrony. His calcium came down easily with the IV fluids. His creatinine bumped slightly. CPK was noted to be 5100. Despite that, the patient was making good urine and had only a transient bump in his creatinine to a peak of 1.2. IV fluids were increased, and the creatinine came down to normal immediately. Sputum Gram stain from January 21 showed 4+ polys and 3+ epithelial cells with a polymicrobial carter, and is growing E coli and Streptococcus. On January 23 he tolerated a PSV trial only briefly, then failed with tachypnea and tachycardia. He had copious thick tracheal secretions. He required prn Ativan for sedation on top of propofol at 50 ug. Yesterday, he was more calm, secretions thinner. We elected to wait until today for weaning trial. We switched him over to PSV this morning. Just turned the propofol off. He?s on Fentanyl @ 100ug plus the Lamictal. Eyes are open. Not yet interactive. See Vital Signs below. Breathing easy on PSV 5/30%/+5, with RR 14, Vt 650cc, Ve 9L, Sat 94%. HR 120, SR (been tachy since 0300 with low grade temps), BP 123/68, temp 100.6. Secretion volume is not scant, but OK. No JVD at 30?. Chest is absolutely clear, w normal exp phase. Abd benign. 1+ central edema. LABORATORY DATA: As below. MICROBIOLOGY: Sputum Gram stain from yesterday shows 3+ polys, and 2+ Gram-negative rods. Culture is pending. After 15-20 min off the propofol, he became tachycardic and tachypneic, with abdominal paradox breathing. Eyes were open but he only had limited inter activity. He was not responding to commands. Positive response to confrontation, but minimal tracking. We gave him a bolus of fentanyl 100 mcg, which slowed his breathing and improved his tidal volume, but he did not regain inter activity, and heart rate stayed up in the 140s. We therefore restarted the propofol and backed off. Left him on PSV 10/30/+5 with respiratory rate about 17, tidal volumes about 600cc. IMPRESSION: 1. Toxic/metabolic encephalopathy secondary to alcohol withdrawal. 2. Aspiration pneumonia. 3. Acute respiratory failure secondary to requirement for airway protection + aspiration pneumonia. Not extubatable quite yet. Hopefully later today or tomorrow. 4. Acute kidney injury secondary to rhabdomyolysis. Resolved. 5. ID: Pulmonary aspiration with aspiration pneumonia. Growing Ecoli and strep. Empirically covered with Unasyn. Recultured sputum today. 6. Neuro: On Lamictal for behavior control, with added benzo prn. Will d/c the Lamictal now, start Seroquel instead. The Med Rec indicates that he?s on Seroquel 500 mg qhs. I?ll give him 300 mg now. 7. Metabolic: Repleted phos and potassium. More Mag today. 8. Nutrition: On tube feeds. Critical care time: 60+ minutes. Physical Exam Vital Signs: Vital Signs: Last Vital Signs Temp 100.6 F H 01/25/21 08:00 Pulse 112 H 01/25/21 08:00 Resp 18 01/25/21 08:00 BP 130/76 01/25/21 08:00 Pulse Ox 92 01/25/21 08:00 Body Mass Index 33.7 Objective Data Labs CBC & Chem 7: 01/25/21 06:05 01/25/21 06:05 Labs: Laboratory Results - last 24 hr 01/25/21 01/25/21 01/25/21 06:05 06:05 06:05 WBC 7.4 RBC 3.89 L Hgb 12.1 L Hct 36.3 L MCV 93.3 MCH 31.1 MCHC 33.3 RDW 14.4 Plt Count 291 D MPV 11.1 Immature Gran % (Auto) 1.5 H Neut % (Auto) 54.2 Lymph % (Auto) 21.4 [place] % (Auto) 18.7 H Eos % (Auto) 3.8 Baso % (Auto) 0.4 Lymph # (Auto) 1.6 [place] # (Auto) 1.4 H Eos # (Auto) 0.3 Baso # (Auto) 0.0 Abs Immat Gran (auto) 0.11 H Absolute Neuts (auto) 4.0 Absolute Nucleated RBC 0.020 H Nucleated RBC % (auto) 0.3 H Sodium 142 Potassium 3.6 Chloride 108 Carbon Dioxide 25 Anion Gap 13 BUN 7 L Creatinine 0.62 Estim Creat Clear Calc 164.0 Estimated GFR > 60 Random Glucose 96 Calcium 8.4 D Phosphorus 3.4 Magnesium 1.7 Procalcitonin 0.09 Microbiology Microbiology Results: Microbiology 01/19/21 20:01 Blood - Venous Blood Culture - Final No growth after 5 days. 01/19/21 20:04 Blood - Venous Blood Culture - Final No growth after 5 days. 01/24/21 08:45 Sputum - Suctioned Gram Stain - Final 01/21/21 11:55 Sputum - Suctioned Gram Stain - Final 01/21/21 11:55 Sputum - Suctioned Sputum Culture - Final Escherichia coli Streptococcus constellatus Progress Note: A&P Time Spent With Patient Time: Total time spent is greater than 50% in coordination of care (as documented) at patient's floor/unit and/or counseling patient: Total time spent with greater than 50% in coordination of care (as documented) at patient's floor/unit and/or counseling patient:: 0 Critical Care Time Critical Care Time (minutes): 60
[2021-01-25] MEDS: Chlorhexidine Gluc Oral Rinse 15 ML MOUTHWASH BUCCAL ×3 (09:54→19:21)
[2021-01-25] MEDS: Magnesium Sulfate/H2O 2 GM/50 ML PIGGYBACK IV (09:54)
[2021-01-25] MEDS: Famotidine/PF 20 MG/2 ML VIAL IVPUSH (09:54)
[2021-01-25] MEDS: Potassium Chloride Packet 20 MEQ PACKET 40 MEQ G-TUBE (10:54)
[2021-01-25] MEDS: QUEtiapine Fumarate 50 MG TABLET 300 MG G-TUBE (10:54)
[2021-01-25] MEDS: fentaNYL citrate/NS 1,000 MCG/100 ML PLAST..BAG 10 MCG IVCONT ×2 (14:41→23:58)
[2021-01-25] MEDS: Enoxaparin Sodium 40 MG/0.4 ML SYRINGE SUBCUT (14:41)
[2021-01-25 19:16] LABS: VBG Base Excess -0.5 mmol/L; VBG HCO3 24 mmol/L (22-26); VBG pCO2 39 mmHg; VBG pH 7.39 (7.32-7.43); VBG pO2 57 mmHg
[2021-01-25 19:18] LABS: Venous Blood Gas Refer to POC result
[2021-01-26] VITALS (35 sets, daily range): BP systolic 92–180; BP diastolic 49–112; PULSE 71–121; RESP 8–33; TEMP 37.5–38.9; O2SAT 84–98
[2021-01-26] MEDS: propofoL 1,000 MG/100 ML VIAL 23.13 MG IVCONT ×3 (02:28→08:59)
[2021-01-26] MEDS: Ampicillin Sodium/Sulbactam Na 3 GM in 0.9 % Sodium Chloride 100 ML IV ×2 (05:03→12:28)
[2021-01-26 05:46] LABS: VBG Base Excess 3.5 mmol/L; VBG HCO3 29 mmol/L (22-26); VBG pCO2 48 mmHg; VBG pH 7.38 (7.32-7.43); VBG pO2 68 mmHg
[2021-01-26 05:49] LABS: Venous Blood Gas Refer to POC result
--- NOTE | 2021-01-26 06:07 | PC.NURSE ---
PT SEDATE ON PROPOFOL/FENTANYL. ROUSES TO NOXIOUS STIMULI, OPENS EYES BUT DOES NOT TRACK/FOLLOW COMMANDS, REACHES TOWARDS ETT. TMAX 100.2 CORE. NSR ON TELE, HR 70-80s. SBP 90-100s, MAP > 65. ETT #8, 27 CM ADRIANA. REMAINS ON PSV 10/5/50%, RR 8-12, Vt 500, Ve 7. ETCO2 40s. +C/G. MODERATE AMOUNT OF THICK CREAM ORAL/INLINE SECRETIONS. JEVITY TF RUNNING AT MAX RATE OF 60 ML/HR, TOLERATING WELL. UOP APPROX 50-100 ML/HR. SKIN INTACT, BUTT RED BUT BLANCHABLE. NONPITTING EDEMA TO BUE. REPOSITIONED Q2H. ON AIR LOSS BED.
[2021-01-26] MEDS: Chlorhexidine Gluc Oral Rinse 15 ML MOUTHWASH BUCCAL (08:59)
[2021-01-26] MEDS: Famotidine/PF 20 MG/2 ML VIAL IVPUSH (08:59)
[2021-01-26] MEDS: LORazepam 2 MG/ML VIAL 1 MG IVPUSH ×3 (09:09→21:02)
[2021-01-26] MEDS: fentaNYL citrate/NS 1,000 MCG/100 ML PLAST..BAG 10 MCG IVCONT (10:30)
[2021-01-26] MEDS: fentaNYL citrate/PF 100 MCG/2 ML VIAL IVPUSH (12:14)
[2021-01-26] MEDS: Metoprolol Tartrate 5 MG/5 ML VIAL IVPUSH (12:28)
--- NOTE | 2021-01-26 13:29 | P.PNCC_ITS ---
Subjective Subjective Date of Service: 01/26/21 Interval History: Mr. Moise was admitted to ICU on January 19 with delirium tremens unable to be controlled in the ED with the phenobarbital protocol and other pharmaceuticals. The patient is a 50-year-old male never before been seen at [facility] [place]. According to the brother, the patient has a history of traumatic brain injury, depression, anxiety, and alcohol abuse. The patient had been in a detox program 1 year ago and was sober for approximately 7 months. But the brother believes that the patient has been drinking heavily recently. The patient did have an episode of delirium tremens about 10 years ago and did require a hospitalization in the past for depression. Police were called by the patient on the night of January 18 because he was convinced that people broke into his house and stole his positions. At the scene, it was obvious that the patient was hallucinating. EMS was called and the patient was brought into the ED early on January 19. In the ED, the patient was confused, paranoid, and having visual hallucinations. He was tachycardic and hypertensive. He told the ED staff that he takes Seroquel. Labs were notable for a calcium of 12, mildly bumped ammonia, thrombocytopenia, and transaminitis. The alcohol level was negative. U tox was positive for marijuana. Head CT was unremarkable. The patient was felt to be having classic delirium tremens. He was given normal saline, thiamine, folate, and multivitamins. The patient was admitted to Medicine. While still in the ED before he could be transferred to the floor, the patient became more agitated. He was begun on the phenobarbital protocol. He received his full dose of phenobarbital IM. He continued to be agitated and he was treated with Haldol 10 mg IM and Benadryl 50 mg IV. The patient was still agitated, and was therefore transferred to the ICU service. He was intubated for airway protection. There was a question of whether the patient aspirated. After admission to the ICU, he required paralytic agent several times for difficult to control agitation and ventilator dyssynchrony. His calcium came down easily with the IV fluids. His creatinine bumped slightly. CPK was noted to be 5100. Despite that, the patient was making good urine and had only a transient bump in his creatinine to a peak of 1.2. IV fluids were increased, a nd the creatinine came down to normal immediately. Sputum Gram stain from January 21 showed 4+ polys and 3+ epithelial cells with a polymicrobial carter, and is growing E coli and Streptococcus. On January 23 he tolerated a PSV trial only briefly, then failed with tachypnea and tachycardia. He had copious thick tracheal secretions. He required prn Ativan for sedation on top of propofol at 50 ug. He failed trials the next two days, but we were able to switch him over to PSV yesterday and he did well on that all night. I also switched him over yesterday from Lamictal to Seroquel, 300 mg qhs. Today, he?s more calm, no diaphoresis. On propofol @ 50ug, fentanyl @ 100ug. Dropped his vent down to PSV 5cm with no problem. See Vital Signs below. On PSV 5/40%/+5, RR was high teens, Vt 600s, Sat mid-90?s. After the propofol was d/c?d, he was awake enough in about 20 min, altho not purposefully interactive. He extubated without incident onto HFNC 60L/50%, breathing easy with Sat 90-92%. Eyes are open and he?s looking around in a daze. He tracks slowly and nods his head in response to simple questions, and he?s trying to say words but it?s not coming out. Has the look of someone with toxic encephalopathy from too much antipsychotic. HR 99, SR, BP 162/86, Tmax 100.9. Not having much in the way of secretions. No JVD at 30?. Chest has coarse BS, w normal exp phase. Abd benign. 1+ central edema. LABORATORY DATA: As below. Notably, WBC is normal, plat count is rising, renal indices low. MICROBIOLOGY: Sputum Gram stain from 01/24 shows 3+ polys, and 2+ Gram-negative rods. Growing resistant Ecoli ANTIBIOTICS: Unasyn, day #8 IMPRESSION: 1. Toxic/metabolic encephalopathy secondary to alcohol withdrawal. No longer showing ESVIN symptoms, but he looks semi-catatonic. I?ve d/c?d all his antipsychotics. 2. Aspiration pneumonia. Stopped his Unasyn today after 8 days. 3. Acute respiratory failure secondary to requirement for airway protection + aspiration pneumonia. Breathing easy, but his oxygenation is clearly not back to normal. Since he?s been on the fentanyl drip for days, it can?t be stopped cold turkey, has to be tapered. I?ve written to taper it by 20ug every 6 hrs until off. That taper schedule should not be touched unless his RR picks up. 4. Acute kidney injury secondary to rhabdomyolysis. Resolved. He is edematous though, so I?ve written him for Lasix 40 mg daily x 2 days. 5. ID: Pulmonary aspiration with aspiration pneumonia. Antibiotics D/C?d today 6. Metabolic: Repleted potassium and Mag. 7. Nutrition: Had been on tube feeds. Swallow eval tomorrow. Critical care time: 60+ minutes. Will likely tx out of ICU tonight. I'll sign out to hospitalists. Physical Exam Vital Signs: Vital Signs: Last Vital Signs Temp 100.2 F 01/26/21 13:00 Pulse 100 01/26/21 13:00 Resp 16 01/26/21 13:00 BP 159/83 H 01/26/21 13:00 Pulse Ox 92 01/26/21 13:00 Body Mass Index 33.7 Objective Data Labs CBC & Chem 7: 01/25/21 06:05 01/25/21 06:05 Labs: Laboratory Results - last 24 hr 01/25/21 01/26/21 19:09 05:37 VBG pH 7.39 7.38 VBG pCO2 39 48 VBG pO2 57 68 VBG HCO3 24 29 H VBG O2 Saturation 86.0 89.0 VBG Base Excess -0.5 3.5 Microbiology Microbiology Results: Microbiology 01/24/21 08:45 Sputum - Suctioned Gram Stain - Final 01/24/21 08:45 Sputum - Suctioned Sputum Culture - Final Escherichia coli 01/19/21 20:01 Blood - Venous Blood Culture - Final No growth after 5 days. 01/19/21 20:04 Blood - Venous Blood Culture - Final No growth after 5 days. 01/21/21 11:55 Sputum - Suctioned Gram Stain - Final 01/21/21 11:55 Sputum - Suctioned Sputum Culture - Final Escherichia coli Streptococcus constellatus Progress Note: A&P Time Spent With Patient Time: Total time spent is greater than 50% in coordination of care (as d ocumented) at patient's floor/unit and/or counseling patient: Total time spent with greater than 50% in coordination of care (as documented) at patient's floor/unit and/or counseling patient:: 0 Critical Care Time Critical Care Time (minutes): 60
[2021-01-26] MEDS: Furosemide 40 MG/4 ML VIAL IVPUSH (13:41)
[2021-01-26] MEDS: Enoxaparin Sodium 40 MG/0.4 ML SYRINGE SUBCUT (13:42)
[2021-01-26] MEDS: Potassium Chloride/H20 40 MEQ/100 ML PIGGYBACK 100 MEQ IV (13:42)
[2021-01-26] MEDS: Magnesium Sulfate/H2O 2 GM/50 ML PIGGYBACK IV (13:42)
[2021-01-26] MEDS: LORazepam 2 MG/ML VIAL 0.5 MG IVPUSH ×3 (13:51→20:43)
[2021-01-26 14:28] LABS: Ammonia 42 umol/L (13-55)
--- NOTE | 2021-01-26 14:43 | MHC.CM.PN ---
Pt has been successfully extubated today and is on high flow O2. MS impaired d/t medications. CM to follow for d/c planning needs: Pt was independent with all care needs prior to admission and can hopefully, return to home without services once recovered. Pt does not have a PCP - [facility]. CM to assist with PCP appointment now that pt is awake and can demonstrate comprehension. CM to follow.
[2021-01-26] MEDS: propofoL 200 MG/20 ML VIAL 30 MG IVPUSH (16:15)
[2021-01-26] MEDS: dexmedeTOMIDidine HCL/NS 400 MCG/100 ML INFUS..BTL 12.94 MCG IVCONT (16:45)
[2021-01-26] MEDS: LORazepam 2 MG/ML VIAL IVPUSH (17:41)
[2021-01-26] MEDS: dexmedeTOMIDidine HCL/NS 400 MCG/100 ML INFUS..BTL 38.81 MCG IVCONT ×3 (18:13→23:15)
--- NOTE | 2021-01-26 19:00 | PC.NURSE ---
Pt extubated this morning at 1103, placed on highflow 40/40 ultimately increased to 50/50, pt was able to follow some commands moving all extremities, very tense. Required frequent yankeur suctioning as he coughed up sputum. 1500 pt became agitated 0.5mg ativan given with minmal effect. Followed up with 0.5mg ativan. Ultimately 4mg ativan given. 50mcg precedex bolus given, drip titrated up to 1.5mcg/kg/hr. 30mg propofol IVP given per MD at bedside. Pt was kicking staff and thrashing around bed. Pt is now resting in sAo2 92. Pt put out 4.7L of urine after 40mg IVP lasix, potassium and MG++ replaced. 5mg IVP metoprolol given for BP 170/90 with some effect. temp trending up, no longer on Unasyn, RN aware.
[2021-01-26] MEDS: fentaNYL citrate/NS 1,000 MCG/100 ML PLAST..BAG 6 MCG IVCONT (21:02)
[2021-01-26] MEDS: Acetaminophen Supp 650 MG SUPP.RECT PR (22:00)
[2021-01-27] VITALS (35 sets, daily range): BP systolic 120–178; BP diastolic 60–100; PULSE 80–104; RESP 8–41; TEMP 38.3–40; O2SAT 88–99; BMI 33.5
[2021-01-27] MEDS: LORazepam 2 MG/ML VIAL 1 MG IVPUSH ×7 (00:46→22:19)
[2021-01-27] MEDS: dexmedeTOMIDidine HCL/NS 400 MCG/100 ML INFUS..BTL 38.81 MCG IVCONT ×6 (02:03→14:54)
[2021-01-27] MEDS: Metoprolol Tartrate 5 MG/5 ML VIAL IVPUSH (03:08)
--- NOTE | 2021-01-27 04:16 | PC.NURSE ---
Pt increasingly agitated and restless throughout shift, pt attempting to kick and grab staff, PRn ativan given as needed, Fent drip increased see drug titration, Pt febrile PA made aware ID tylenol given without effect, PA aware, ice applied. HR SR/ST SBP 170's, new order for 5 mg IV lopressor Pt occasionally following commands but awakens frequently with outbursts of restlessness, confusion and agitation. soft restraints in placed for pt safety maxed on precedex drip. frequent safety checks. remians on high flow 50L & 60% FI02
[2021-01-27 05:27] LABS: MANUAL DIFF FLAG NO
[2021-01-27] MEDS: Acetaminophen Supp 650 MG SUPP.RECT PR (05:50)
[2021-01-27 05:58] LABS: Basophils Absolute Auto 0.1 X10*3/uL (0.0-0.2); Basophils Percent Auto 0.5 % (0-2); Eosinophils Percent Auto 0.4 % (0-4); Hematocrit 33.7 % (42-52); Hemoglobin 11.4 g/dl (14.0-18.0); Imm Gran Abs Auto 0.08 X10*3/uL (0.00-0.03); Imm Gran Pct Auto 0.7 % (0.0-0.4); Lymphocytes Absolute Auto 1.4 X10*3/uL (1.2-4.9); Lymphocytes Percent Auto 12.2 % (20-40); Mean Corpuscular HGB Conc 33.8 g/dl (31.0-36.0); Mean Corpuscular Hemoglobin 30.6 pg (27.0-33.0); Mean Corpuscular Volume 90.3 fL (80-98); Monocytes Absolute Auto 1.5 X10*3/uL (0.1-1.2); Monocytes Percent Auto 12.9 % (2-11); Neutrophils Absolute Auto 8.3 X10*3/uL (2.0-8.3); Neutrophils Percent Auto 73.3 % (45-73); Platelet Count 408 X10*3/uL (160-400); Red Blood Count 3.73 X10*6/uL (4.60-5.80); Red Cell Distribution Width 13.3 % (11.0-16.0); White Blood Count 11.3 X10*3/uL (4.8-10.8)
[2021-01-27 06:11] LABS: Alanine Aminotransferase 94 U/L (0-40); Albumin Level 3.4 g/dL (3.5-5.0); Alkaline Phosphatase 92 U/L (39-117); Anion Gap 15 (12-20); Aspartate Amino Transferase 98 U/L (5-37); Bilirubin Total 0.7 mg/dL (0.0-1.0); Blood Urea Nitrogen 8 mg/dL (9-16); Calcium 8.5 mg/dL (8.4-10.2); Carbon Dioxide 25 mmol/L (22-29); Chloride 103 mmol/L (96-108); Creatinine Clr Calc Pharmacy 156.9; Estimated Glomerular Filt Rate > 60; Glucose Random 111 mg/dL (60-115); Magnesium 1.7 mg/dL (1.6-2.6); Phosphorus 2.3 mg/dL (2.7-4.5); Potassium 3.7 mmol/L (3.3-5.1); Sodium 139 mmol/L (135-145); Total Protein 5.7 g/dL (6.5-8.0)
[2021-01-27] MEDS: Furosemide 40 MG/4 ML VIAL IVPUSH (09:42)
[2021-01-27] MEDS: fentaNYL citrate/NS 1,000 MCG/100 ML PLAST..BAG 7.5 MCG IVCONT (11:16)
--- NOTE | 2021-01-27 12:27 | MHC.CM.PN ---
Pt remains extubated but sedated and in restraints d/t very aggressive behaviors. Pt reportedly has been seeing [place] providers Jb Lawson APRN (psych) and Asia Bashir TEST SPECIALIST. Lucila notes pt has recently p/u scripts for meds. Pt will need to exhibit calm behaviors free from all restraints before he can transition to the floor. Unknown if he will require a PT eval - pt was 100% independent prior to admission per brother. CM to follow for finalization of d/c plans
[2021-01-27] MEDS: Enoxaparin Sodium 40 MG/0.4 ML SYRINGE SUBCUT (14:52)
--- NOTE | 2021-01-27 15:48 | PC.NURSE ---
PT continues to be restless and extremly agitated/ pulling on restraints, attempting to get out of bed, ripping off leads and o2 sat probe/ temp up to 103.8 when pt agitated and restless, cold wash cloths applied, bps 170s systollically and hr trending 99-100s, o2 sat down to 86%, high flow increased to 55l and 65%, o2 sat back to 88-89%, md aware, stat blood cultures ordered and drawn, chest xray done brother updated by this RN
--- NOTE | 2021-01-27 16:01 | PM.CCPN ---
Subjective Subjective Date of Service: 01/27/21 Interval History: Mr. Moise was admitted to ICU on January 19 with delirium tremens unable to be controlled in the ED with the phenobarbital protocol and other pharmaceuticals. The patient is a 50-year-old male never before been seen at [facility]. According to the brother, the patient has a history of traumatic brain injury, depression, anxiety, and alcohol abuse. The patient had been in a detox program 1 year ago and was sober for approximately 7 months. But the brother believes that the patient has been drinking heavily recently. The patient did have an episode of delirium tremens about 10 years ago and did require a hospitalization in the past for depression. Police were called by the patient on the night of January 18 because he was convinced that people broke into his house and stole his positions. At the scene, it was obvious that the patient was hallucinating. EMS was called and the patient was brought into the ED early on January 19. In the ED, the patient was confused, paranoid, and having visual hallucinations. He was tachycardic and hypertensive. He told the ED staff that he takes Seroquel. Labs were notable for a calcium of 12, mildly bumped ammonia, thrombocytopenia, and transaminitis. The alcohol level was negative. U tox was positive for marijuana. Head CT was unremarkable. The patient was felt to be having classic delirium tremens. He was given normal saline, thiamine, folate, and multivitamins. The patient was admitted to Medicine. While still in the ED before he could be transferred to the floor, the patient became more agitated. He was begun on the phenobarbital protocol. He received his full dose of phenobarbital IM. He continued to be agitated and he was treated with Haldol 10 mg IM and Benadryl 50 mg IV. The patient was still agitated, and was therefore transferred to the ICU service. He was intubated for airway protection. There was a question of whether the patient aspirated. After admission to the ICU, he required paralytic agent several times for difficult to control agitation and ventilator dyssynchrony. His calcium came down easily with the IV fluids. His creatinine bumped slightly. CPK was noted to be 5100. Despite that, the patient was making good urine and had only a transient bump in his creatinine to a peak of 1.2. IV fluids were increased, and the creatinine came down to normal immediately. Sputum Gram stain from January 21 showed 4+ polys and 3+ epithelial cells with a polymicrobial carter, and grew a resistant E coli and Streptococcus. On January 23 he tolerated a PSV trial only briefly, then failed with tachypnea and tachycardia. He had copious thick tracheal secretions. He required prn Ativan for sedation on top of propofol at 50 ug. He failed trials the next two days, but we were able to switch him over to PSV yesterday and he did well on that all night. I also switched him over yesterday from Lamictal to Seroquel, 300 mg qhs. Off propofol yesterday, he was awake but delirious, and not purposefully interactive. He extubated without incident. Most of the time he was breathing easy. He had periods of extreme agitation. We tried him on Precedex, but even at 1.5 mcg, that was minimally successful in controlling his agitation. Ativan 1 or 2 mg IV push did very well however. Overnight, he has been on the Precedex 1.5 mcg, with frequent prn Ativan. He is still delirious today, requiring 4 point restraints when he is not medicated with Ativan. Sometimes he will nod his head or respond with a very soft yes or no to simple questions. He tracks consistently. No diaphoresis today. He?s on a programed fentanyl taper. HR 90, SR. BP 166/95. Started having temps yest about 4pm, Tmax 103.8?. Minimal secretions. No coughing. No JVD at 30?. Chest is clear, w normal exp phase. Abd benign. Minimal edema after Lasix 40 mg daily x 2 days. LABORATORY DATA: As below. Notably, WBC is bumped, plat count is rising, renal indices low. MICROBIOLOGY: Sputum Gram stain from 01/24 shows 3+ polys, and 2+ Gram-negative rods. Growing resistant Ecoli ANTIBIOTICS: d/c?d. CXR this afternoon: Show?s a new right mid lung infiltrate. IMPRESSION: 1. Neuro: Our original dx was toxic/metabolic encephalopathy secondary to alcohol withdrawal. It cannot be said with certainty however that he was not having benzodiazepine withdrawal, altho we have no record of him being on benzo?s, and his tox screen didn?t show any. The question now is, what?s the cause of his current delirium? Whatever it is, he responds very well to 1mg Ativan. Examined the patient today with Manda Barron. In her opinion, his current agitated delirium is not c/w citalopram withdrawal. And it?s going on too many days for this to be alcohol withdrawal. For now, we?ll manage his delirium with Ativan +/- Precedex. The Precedex doesn?t seem to be doing much, we?ll see if we can taper it off without any change in his MS. And we?ll try to avoid giving him any antipsychotics (like Haldol or Zyprexa). 2. New right pneumonia. Probably aspiration. He?s still breathing easy, could be a chemical pneumonitis, no abx at this point. D/W Dr. Garzon. 3. Acute kidney injury secondary to rhabdomyolysis. Resolved. He is edematous though, so I?ve written him for Lasix 40 mg daily x 2 days. 4. Metabolic: Replete potassium, phos, and Mag. 5. HTN. Rx w prn metoprolol. Critical care time (mult visits to the bedside): 70+ minutes. Physical Exam Vital Signs: Vital Signs: Last Vital Signs Temp 103.1 F H 01/27/21 15:51 Pulse 98 01/27/21 15:51 Resp 41 H 01/27/21 15:51 BP 158/93 H 01/27/21 15:51 Pulse Ox 88 L 01/27/21 15:51 Body Mass Index 33.5 Objective Data Labs CBC & Chem 7: 01/27/21 05:15 01/27/21 05:15 Labs: Laboratory Results - last 24 hr 01/27/21 01/27/21 05:15 05:15 WBC 11.3 H RBC 3.73 L Hgb 11.4 L Hct 33.7 L MCV 90.3 MCH 30.6 MCHC 33.8 RDW 13.3 Plt Count 408 H D MPV 11.0 Immature Gran % (Auto) 0.7 H Neut % (Auto) 73.3 H Lymph % (Auto) 12.2 L [place] % (Auto) 12.9 H Eos % (Auto) 0.4 Baso % (Auto) 0.5 Lymph # (Auto) 1.4 [place] # (Auto) 1.5 H Eos # (Auto) 0.0 Baso # (Auto) 0.1 Abs Immat Gran (auto) 0.08 H Absolute Neuts (auto) 8.3 Absolute Nucleated RBC 0.000 Nucleated RBC % (auto) 0.0 Sodium 139 Potassium 3.7 Chloride 103 Carbon Dioxide 25 Anion Gap 15 BUN 8 L Creatinine 0.66 Estim Creat Clear Calc 156.9 Estimated GFR > 60 Random Glucose 111 Calcium 8.5 Phosphorus 2.3 L Magnesium 1.7 Total Bilirubin 0.7 AST 98 H ALT 94 H Alkaline Phosphatase 92 D Total Protein 5.7 L D Albumin 3.4 L Microbiology Microbiology Results: Microbiology 01/24/21 08:45 Sputum - Suctioned Gram Stain - Final 01/24/21 08:45 Sputum - Suctioned Sputum Culture - Final Escherichia coli 01/19/21 20:01 Blood - Venous Blood Culture - Final No growth after 5 days. 01/19/21 20:04 Blood - Venous Blood Culture - Final No growth after 5 days. 01/21/21 11:55 Sputum - Suctioned Gram Stain - Final 01/21/21 11:55 Sputum - Suctioned Sputum Culture - Final Escherichia coli Streptococcus constellatus Progress Note: A&P Time Spent With Patient Time: Total time spent is greater than 50% in coordination of care (as documented) at patient's floor/unit and/or counseling patient: Total time spent with greater than 50% in coordination of care (as documented) at patient's floor/unit and/or counseling patient:: 0 Critical Care Time Critical Care Time (minutes): 60
--- NOTE | 2021-01-27 16:12 | P.CNPS_ITS ---
History of Present Illness Date of Service: 01/27/2021 Chief Complaint: Encephalopathy Reason for Consult: delirium ?antipsychotic or other drug withdrawal Requesting physician: Rolf Quezada Discussed with referring provider: Yes Sources of Information: chart reviewed HPI Narrative: Patient is a 50 year old male who presented to [facility] ED with hallucinations and agitation. Collateral obtained from family member who reported patient had a history of TBI and AUD with previous hospitalization for DT. Pt requiring significant intervention to manage behaviors, including physical restraints Please see ICU notes for hospital course Consult requested as patient was extubated 01/26 and continued to be combative, disoriented and requiring lorazepam as well as physical restraints to maintain his safety. Pt seen in room 252. Awake, responding yes and no to some questions, no eye contact. Vegetable Grower reporting he has been responding to lorazepam. Unclear what his baseline is as he has never been to [facility] [place] and reportedly recently moved here from [facility]. Medicaiton history shows that he was on high dose of Seroquel and Citalopram as well as Naltrexone Past Psychiatric History: Unknown Medical Evaluation Reviewed: Yes still in ICU aspiration pneumonia febrile phenobarb protocol complete Personal & Social History: Unclear Review of Systems Review of Systems Yes Unobtainable due to mental status Diagnostics Vital Signs (24Hr): Vital Signs - 24 hr 01/26/21 16:50 01/26/21 18:00 01/26/21 19:00 Temperature 101.1 F H 101.5 F H 101.5 F H Pulse Rate 100 95 97 Respiratory Rate 30 H 32 H 33 H Blood Pressure 151/78 H 158/89 H 167/93 H Pulse Oximetry 89 L 91 L 94 01/26/21 19:53 01/26/21 20:03 01/26/21 20:41 Temperature 101.5 F H Pulse Rate 93 114 H Respiratory Rate 27 H 28 H 25 H Blood Pressure 167/93 H 168/84 H Pulse Oximetry 95 90 L 01/26/21 20:57 01/26/21 21:58 01/26/21 23:00 Temperature 101.8 F H 102.0 F H 101.8 F H Pulse Rate 120 H 95 94 Respiratory Rate 28 H 22 H 30 H Blood Pressure 168/84 H 173/99 H 180/99 H Pulse Oximetry 92 95 94 01/26/21 23:15 01/26/21 23:39 01/27/21 00:00 Temperature 101.8 F H Pulse Rate 96 95 Respiratory Rate 30 H 28 H 27 H Blood Pressure 180/99 H 168/96 H Pulse Oximetry 94 93 01/27/21 00:48 01/27/21 01:51 01/27/21 03:00 Temperature 102 F H 102.2 F H 103.1 F H Pulse Rate 99 102 H 100 Respiratory Rate 34 H 13 29 H Blood Pressure 167/96 H 170/95 H 165/98 H Pulse Oximetry 91 L 93 93 01/27/21 03:08 01/27/21 03:51 01/27/21 04:00 Temperature 103.6 F H Pulse Rate 99 102 H Respiratory Rate 25 H 33 H Blood Pressure 165/98 H 171/100 H Pulse Oximetry 88 L 01/27/21 04:55 01/27/21 05:55 01/27/21 07:00 Temperature 104 F H 103.8 F H 103.3 F H Pulse Rate 103 H 102 H 102 H Respiratory Rate 32 H 28 H 29 H Blood Pressure 171/100 H 165/97 H 157/95 H Pulse Oximetry 90 L 92 90 L 01/27/21 07:25 01/27/21 07:40 01/27/21 08:07 Temperature 103.1 F H Pulse Rate 100 100 Respiratory Rate 8 L 16 35 H Blood Pressure 157/95 H 157/94 H Pulse Oximetry 92 93 01/27/21 09:00 01/27/21 10:00 01/27/21 11:00 Temperature 102.6 F H 102.4 F H 102.4 F H Pulse Rate 95 94 99 Respiratory Rate 16 13 17 Blood Pressure 161/89 H 158/96 H 160/95 H Pulse Oximetry 94 94 91 L 01/27/21 11:05 01/27/21 12:00 01/27/21 13:00 Temperature 102.7 F H 103.3 F H Pulse Rate 98 101 H Respiratory Rate 15 21 H 10 L Blood Pressure 172/99 H Pulse Oximetry 90 L 01/27/21 14:00 01/27/21 15:00 01/27/21 15:51 Temperature 103.8 F H 103.1 F H 103.1 F H Pulse Rate 102 H 100 98 Respiratory Rate 26 H 25 H 41 H Blood Pressure 170/95 H 178/98 H 158/93 H Pulse Oximetry 94 90 L 88 L Body Mass Index 33.5 Labs Results: 01/27/21 05:15 01/27/21 05:15 Labs: Laboratory Results - last 48 hr 01/25/21 01/26/21 01/26/21 19:09 05:37 14:06 WBC RBC Hgb Hct MCV MCH MCHC RDW Plt Count MPV Immature Gran % (Auto) Neut % (Auto) Lymph % (Auto) [place] % (Auto) Eos % (Auto) Baso % (Auto) Lymph # (Auto) [place] # (Auto) Eos # (Auto) Baso # (Auto) Abs Immat Gran (auto) Absolute Neuts (auto) Absolute Nucleated RBC Nucleated RBC % (auto) VBG pH 7.39 7.38 VBG pCO2 39 48 VBG pO2 57 68 VBG HCO3 24 29 H VBG O2 Saturation 86.0 89.0 VBG Base Excess -0.5 3.5 Sodium Potassium Chloride Carbon Dioxide Anion Gap BUN Creatinine Estim Creat Clear Calc Estimated GFR Random Glucose Calcium Phosphorus Magnesium Total Bilirubin AST ALT Alkaline Phosphatase Ammonia 42 Total Protein Albumin 01/27/21 01/27/21 05:15 05:15 WBC 11.3 H RBC 3.73 L Hgb 11.4 L Hct 33.7 L MCV 90.3 MCH 30.6 MCHC 33.8 RDW 13.3 Plt Count 408 H D MPV 11.0 Immature Gran % (Auto) 0.7 H Neut % (Auto) 73.3 H Lymph % (Auto) 12.2 L [place] % (Auto) 12.9 H Eos % (Auto) 0.4 Baso % (Auto) 0.5 Lymph # (Auto) 1.4 [place] # (Auto) 1.5 H Eos # (Auto) 0.0 Baso # (Auto) 0.1 Abs Immat Gran (auto) 0.08 H Absolute Neuts (auto) 8.3 Absolute Nucleated RBC 0.000 Nucleated RBC % (auto) 0.0 VBG pH VBG pCO2 VBG pO2 VBG HCO3 VBG O2 Saturation VBG Base Excess Sodium 139 Potassium 3.7 Chloride 103 Carbon Dioxide 25 Anion Gap 15 BUN 8 L Creatinine 0.66 Estim Creat Clear Calc 156.9 Estimated GFR > 60 Random Glucose 111 Calcium 8.5 Phosphorus 2.3 L Magnesium 1.7 Total Bilirubin 0.7 AST 98 H ALT 94 H Alkaline Phosphatase 92 D Ammonia Total Protein 5.7 L D Albumin 3.4 L Imaging Radiology Impressions: ITS Impressions Head CT 01/19/21 02:09 IMPRESSION: No acute intracranial pathology. Chest X-Ray 01/19/21 18:46 IMPRESSION: ET tube needs to be pulled back as it is less than 1 cm from the geovanni. NG tube should be advanced. Chest X-Ray 01/23/21 06:00 IMPRESSION: Satisfactory position of support tubes. Low lung volumes and bilateral atelectasis/small infiltrates similar to previous exam. Chest X-Ray 01/23/21 12:34 IMPRESSION: New left subclavian line tip projects over SVC. No pneumothorax. Increasing bilateral perihilar and lower lung airspace disease. Question small right pleural effusion. Chest X-Ray 01/27/21 15:09 IMPRESSION: Bilateral pulmonary infiltrates. The endotracheal tube and enteric tube has been removed. Mental Status Exam Mental Status Exam Level of Consciousness: Sedated, Disoriented and Restless Patient Behavior: Sedated and Confused Patient Cognition Impaired: Yes Ability to Follow Directions: Poor Thought Process: Confusion Judgement: Poor Medications Medications Current Medications Generic Name Dose Route Start Last Admin Trade Name Freq PRN Reason Stop Dose Admin Acetaminophen 650 mg 01/26/21 21:54 01/27/21 05:50 Acetaminophen Supp 650 Mg Supp.Rect TX 650 mg Q6H PRN Administration fever Enoxaparin Sodium 40 mg 01/19/21 15:00 01/27/21 14:52 Enoxaparin Sodium 40 Mg/0.4 Ml Syringe SUBCUT 40 mg Q24H KAYLEIGH Administration Folic Acid 2 mg 01/20/21 09:00 01/27/21 14:54 Folic Acid 1 Mg/0.2 Ml Syringe IVPUSH 2 mg DAILY KAYLEIGH Administration Fentanyl 1,000 mcg in 100 mls @ 8 mls/hr 01/26/21 13:15 01/27/21 11:16 Sublimaze/Ns IVCONT 75 mcg/hr .[id number] KAYLEIGH 7.5 mls/hr Administration 80 MCG/HR Dexmedetomidine HCl 400 mcg in 100 mls @ 0 mls/hr 01/26/21 16:45 01/27/21 14:54 Precedex IVCONT 1.5 mcg/kg/hr .Q0M KAYLEIGH 38.81 mls/hr Administration Protocol Per Protocol Ampicillin Sodium/Sulbactam 100 mls @ 200 mls/hr 01/27/21 16:15 Sodium 3 gm/ Sodium Chloride IV Q6H KAYLEIGH Lorazepam 1 mg 01/27/21 00:23 01/27/21 15:51 Lorazepam 2 Mg/Ml Vial IVPUSH 1 mg Q4H PRN Administration anxiety/restlessness Allergies Allergies Allergy/AdvReac Type Severity Reaction Status Date / Time No Known Allergies Allergy Verified 01/19/21 02:09 Assessment & Plan Assessment & Plan (1) Acute alteration in mental status: Status: Acute Code(s): R41.82 - Altered mental status, unspecified Recommendations: * Delirium of unclear etiology. * In discussion with Vegetable Grower he was concerned patients current presentation may have been due to Citalopram withdrawal---this is highly unlikely. * Consider neurology consult * Gather collateral from treating psychiatric provider (unclear what underlying psychiatric dx is) * Lorazepam and Haldol as needed to address agitation and combative behaviors Greater than 50% of the session was spent on counseling and/or coordination of care
[2021-01-27 16:13] LABS: Glucose Urine UA NEG (NEG); Leukocyte Esterase Urine NEG (NEG); Nitrite Urine NEG (NEG); Urine Blood NEG (NEG); Urine Ketones NEG (NEG); Urine Protein NEG (NEG-TRACE)
[2021-01-27 16:23] LABS: Appearance Urine CLEAR; Color Urine YELLOW
--- NOTE | 2021-01-27 16:56 | PC.NURSE ---
Fentanyl taper initiated per Dr Quezada, gtt decreased to 60mcg/hr (6ml/hr). Patient drowsy, but easily arouseable becomes restless and pulling at tubes with any stimulation. Will cont to monitor.
[2021-01-27] MEDS: Metoprolol Tartrate 5 MG in 0.9 % Sodium Chloride 50 ML 220 MG IV (17:06)
[2021-01-27] MEDS: Magnesium Sulfate/H2O 2 GM/50 ML PIGGYBACK IV (17:44)
[2021-01-27] MEDS: dexmedeTOMIDidine HCL/NS 400 MCG/100 ML INFUS..BTL 25.88 MCG IVCONT ×2 (18:15→21:48)
[2021-01-28] VITALS (33 sets, daily range): BP systolic 118–165; BP diastolic 64–99; PULSE 75–113; RESP 12–40; TEMP 37.5–38.3; O2SAT 90–99; BMI 32.8
[2021-01-28] MEDS: dexmedeTOMIDidine HCL/NS 400 MCG/100 ML INFUS..BTL 25.88 MCG IVCONT ×2 (01:45→05:48)
[2021-01-28] MEDS: LORazepam 2 MG/ML VIAL 1 MG IVPUSH (02:02)
[2021-01-28] MEDS: fentaNYL citrate/NS 1,000 MCG/100 ML PLAST..BAG 4 MCG IVCONT (04:37)
[2021-01-28 05:55] LABS: Venous Blood Gas Refer to POC result
[2021-01-28 05:56] LABS: VBG Base Excess 6.4 mmol/L; VBG HCO3 30 mmol/L (22-26); VBG pCO2 40 mmHg; VBG pH 7.48 (7.32-7.43); VBG pO2 51 mmHg
[2021-01-28 05:57] LABS: Basophils Percent Auto 0.3 % (0-2); Eosinophils Absolute Auto 0.1 X10*3/uL (0.0-0.4); Eosinophils Percent Auto 0.4 % (0-4); Hematocrit 33.6 % (42-52); Hemoglobin 11.6 g/dl (14.0-18.0); Imm Gran Abs Auto 0.06 X10*3/uL (0.00-0.03); Imm Gran Pct Auto 0.4 % (0.0-0.4); Lymphocytes Absolute Auto 2.1 X10*3/uL (1.2-4.9); MANUAL DIFF FLAG SCAN; Mean Corpuscular HGB Conc 34.5 g/dl (31.0-36.0); Mean Corpuscular Hemoglobin 30.7 pg (27.0-33.0); Mean Corpuscular Volume 88.9 fL (80-98); Mean Platelet Volume 10.4 fL (9.4-12.4); Monocytes Absolute Auto 2.2 X10*3/uL (0.1-1.2); Monocytes Percent Auto 15.5 % (2-11); Neutrophils Absolute Auto 9.6 X10*3/uL (2.0-8.3); Neutrophils Percent Auto 68.4 % (45-73); Platelet Count 420 X10*3/uL (160-400); Red Blood Count 3.78 X10*6/uL (4.60-5.80); Red Cell Distribution Width 12.9 % (11.0-16.0); SCAN SMEAR FLAG 1
[2021-01-28 06:16] LABS: SLIDE REVIEW VERIFIED
[2021-01-28 06:17] LABS: Alanine Aminotransferase 73 U/L (0-40); Albumin Level 3.5 g/dL (3.5-5.0); Alkaline Phosphatase 77 U/L (39-117); Anion Gap 13 (12-20); Aspartate Amino Transferase 75 U/L (5-37); Bilirubin Total 0.8 mg/dL (0.0-1.0); Blood Urea Nitrogen 11 mg/dL (9-16); Calcium 8.5 mg/dL (8.4-10.2); Carbon Dioxide 29 mmol/L (22-29); Chloride 101 mmol/L (96-108); Creatinine Clr Calc Pharmacy 169.2; Estimated Glomerular Filt Rate > 60; Glucose Random 132 mg/dL (60-115); Potassium 3.5 mmol/L (3.3-5.1); Sodium 139 mmol/L (135-145); Total Protein 5.8 g/dL (6.5-8.0)
--- NOTE | 2021-01-28 07:52 | PC.NURSE ---
pt awake, answers some questions. He is asking to see his brother Arjun, also pointing to something in room and asking who it is, pt pointing at curtain in room. He is calm, tracks with eyes, follows some commands. Precedex titrated down by 0.02 as per protocol. Left arm restraint trial released, pt has made no attempt to remove tubing or other equipment.Pt falls asleep easily.
--- NOTE | 2021-01-28 08:26 | PC.NURSE ---
pt is awake, able to tell RN the name of his brother and mother, also where they live. Pt confused about where he is and what happened that led to his admission to hospital but is easily reoriented and has remained calm.
--- NOTE | 2021-01-28 08:31 | PC.NURSE ---
pt'soxygen saturation on high flow is 97%. Will attempt to wean to Lopez cannula.
--- NOTE | 2021-01-28 08:40 | PC.NURSE ---
precedex weaned to 0.6mcg/kg/hr. Pt awake, calm, oriented to self and able to name family members.
--- NOTE | 2021-01-28 08:45 | PC.NURSE ---
pt weaned from 60% high flow to 50%. oxygen saturation 95% pt tolerating well.
--- NOTE | 2021-01-28 09:13 | PC.NURSE ---
precedex now at 0.4 mcg/kg pt is able to report where he lives, the name of his roomate and talk about the dog he has at home. Pt able to state the dog's name, age and breed. He converses appropriately, has followed commands and remained calm. He is oriented to the fact that he has been in hospital for at least 11 days and states he does not know what happened at home to lead to his admission. Pt denies pain.
--- NOTE | 2021-01-28 09:29 | PC.NURSE ---
pt remains awake, oriented to self and vague to situation but calm and appropriate, High flow remains at 50% and precedex down to 0.2
--- NOTE | 2021-01-28 10:04 | PC.NURSE ---
pt tolerated PO intake, has been conversing appropriately and more oriented. He was able to point out that the clock in the room has not moved, able to repeat the date and time. He has been participating in active range of motion and doing on his own without prompting. Will continue to monitor
--- NOTE | 2021-01-28 11:21 | PC.NURSE ---
pt awake, oriented to self, place, vague to situation. High flow oxygen off, pt on nasal cannula and was assisted up to chair. He was able to bear weight, has some trouble following commands but was able to pivot to chair. Pt's mother in to visit, pt remains calm and cooperative.
--- NOTE | 2021-01-28 13:28 | P.PNCC_ITS ---
Subjective Subjective Date of Service: 01/28/21 Interval History: Mr. Moise was admitted to ICU on January 19 with delirium tremens unable to be controlled in the ED with the phenobarbital protocol and other pharmaceuticals. The patient is a 50-year-old male never before been seen at [facility] According to the brother, the patient has a history of traumatic brain injury, depression, anxiety, and alcohol abuse. The patient did have an episode of delirium tremens about 10 years ago and did require a hospitalization in the past for depression. He was in a detox program 1 year ago and was sober for approximately 7 months. But the brother believes that the patient has been drinking heavily recently. Police were called by the patient on the night of January 18 because he was convinced that people broke into his house and stole his positions. At the scene, it was obvious that the patient was hallucinating. EMS was called and the patient was brought into the ED early on January 19. In the ED, the patient was confused, paranoid, and having visual hallucinations. He was tachycardic and hypertensive. He told the ED staff that he takes Seroquel. Labs were notable for a calcium of 12, mildly bumped ammonia, thrombocytopenia, and transaminitis. The alcohol level was negative. U tox was positive for marijuana. Head CT was unremarkable. The patient was dx with delirium tremens. He was given normal saline, thiamine, folate, and multivitamins. The patient was admitted to Medicine. While still in the ED, he became more agitated. He was given full dose of phenobarbital IM. He continued to be agitated, unresponsive to Haldol and Benadryl. He was therefore transferred to the ICU service, and intubated for airway protection. There was a question of whether the patient aspirated. After admission to the ICU, he required paralytic agent several times for difficult to control agitation and ventilator dyssynchrony. His calcium came down easily with the IV fluids. His creatinine bumped slightly. CPK was noted to be 5100. Despite that, the patient was making good urine and had only a transient bump in his creatinine to a peak of 1.2. IV fluids were increased, and the creatinine came down to normal. Sputum Gram stain from January 21 showed 4+ polys with a polymicrobial carter, and grew a resistant E coli and Streptococcus. He was treated w a course of Unasyn for presumed aspiration. January 23 to January 26 he was weaned from ventilatory support. Lamictal was started, switched to Seroquel, and then d/c?d. He required prn Ativan for sedation on top of max dose propofol. He extubated without difficulty on January 26. He was awake but very delirious and agitated. Failed to respond to Precedex. Responded very well to prn Ativan 1mg boluses, which we?ve been giving to him for last two days. Yesterday, he spiked temps and bumped his WBC. His FiO2 requirement anmol to 60% high flow, atho he was generally breathing easy. A CXR showed a new right mid- lower lung infiltrate, thought 2? aspiration. No abx given. He?s still mildly delirious today, but much, much better than yesterday. Mental functioning is slow (maybe bec of the Ativan), but he readily answers simple questions. He?s calm, sitting out of bed in the chair. No longer requiring restraints. Talks slowly and softly. His mood also looks improved from yesterday. He finished his programed fentanyl taper. HR 100, SR. BP 157/95. Temp is down to about 100.0?. Breathing easy, Sat anmol overnight. He?s now 90% with FiO2 down to 2L NC. No secretions. No coughing. No JVD at 30?. Chest is clear, w normal exp phase. Abd benign. Minimal edema after Lasix 40 mg daily x 2 days. LABORATORY DATA: As below. Notably, WBC is up further, plat count is rising, blood gas is good, renal indices still low. MICROBIOLOGY: Sputum Gram stain from 01/24 shows 3+ polys, and 2+ Gram-negative rods. Grew resistant Ecoli. Blood and urine cultures from 01/27 are negative. ANTIBIOTICS: Finished course of Unasyn. IMPRESSION: 1. Neuro: Our original dx was toxic/metabolic encephalopathy secondary to alcohol withdrawal. Can?t be certain, however, that he was not having benzo diazepine withdrawal, altho we have no record of him being on benzo?s, and his tox screen didn?t show any. Undetermined what the cause of his post-extubation delirium is. Could be residual ESVIN, but it?s a little late for that. Whatever it is, he responds very well to 1mg Ativan. Examined yesterday with Manda Barron, she did not think that his agitated delirium was c/w citalopram withdrawal. For now, we?ll continue to manage his delirium with prn Ativan. We?ll try to avoid giving him any antipsychotics (like Haldol or Zyprexa). 2. New right pneumonia. Probably aspiration. He?s still breathing easy, Sat?s are up, he?s not toxic. Looks like a chemical pneumonitis. No abx indicated at this point. D/W Dr. Garzon. 3. Acute kidney injury secondary to rhabdomyolysis. Resolved. Diuresed nicely. I?ll give him one more dose Lasix 40mg now. 4. Metabolic: Replete potassium; check phos and Mag. 5. HTN. Rx w prn metoprolol. Time: . Physical Exam Vital Signs: Vital Signs: Last Vital Signs Temp 100.2 F 01/28/21 12:00 Pulse 105 H 01/28/21 13:00 Resp 15 01/28/21 13:00 BP 157/95 H 01/28/21 13:00 Pulse Ox 91 L 01/28/21 13:00 Body Mass Index 32.8 Objective Data Labs CBC & Chem 7: 01/28/21 05:47 01/28/21 05:46 Labs: Laboratory Results - last 24 hr 01/27/21 01/28/21 01/28/21 Unknown 05:46 05:47 WBC 14.0 H RBC 3.78 L Hgb 11.6 L Hct 33.6 L MCV 88.9 MCH 30.7 MCHC 34.5 RDW 12.9 Plt Count 420 H MPV 10.4 Immature Gran % (Auto) 0.4 Neut % (Auto) 68.4 Lymph % (Auto) 15.0 L Payne % (Auto) 15.5 H Eos % (Auto) 0.4 Baso % (Auto) 0.3 Lymph # (Auto) 2.1 Payne # (Auto) 2.2 H Eos # (Auto) 0.1 Baso # (Auto) 0.0 Abs Immat Gran (auto) 0.06 H Absolute Neuts (auto) 9.6 H Absolute Nucleated RBC 0.000 Nucleated RBC % (auto) 0.0 Smear Tech's Comments VERIFIED VBG pH VBG pCO2 VBG pO2 VBG HCO3 VBG O2 Saturation VBG Base Excess Sodium 139 Potassium 3.5 Chloride 101 Carbon Dioxide 29 Anion Gap 13 BUN 11 Creatinine 0.61 Estim Creat Clear Calc 169.2 Estimated GFR > 60 Random Glucose 132 H Calcium 8.5 Total Bilirubin 0.8 AST 75 H ALT 73 H Alkaline Phosphatase 77 Total Protein 5.8 L Albumin 3.5 Urine Color YELLOW Urine Appearance CLEAR Urine pH 8.0 Ur Specific [place] 1.020 Urine Protein NEG Urine Glucose (UA) NEG Urine Ketones NEG Urine Blood NEG Urine Nitrite NEG Ur Leukocyte Esterase NEG 01/28/21 05:50 WBC RBC Hgb Hct MCV MCH MCHC RDW Plt Count MPV Immature Gran % (Auto) Neut % (Auto) Lymph % (Auto) Payne % (Auto) Eos % (Auto) Baso % (Auto) Lymph # (Auto) Payne # (Auto) Eos # (Auto) Baso # (Auto) Abs Immat Gran (auto) Absolute Neuts (auto) Absolute Nucleated RBC Nucleated RBC % (auto) Smear Tech's Comments VBG pH 7.48 H VBG pCO2 40 VBG pO2 51 VBG HCO3 30 H VBG O2 Saturation 77.0 VBG Base Excess 6.4 Sodium Potassium Chloride Carbon Dioxide Anion Gap BUN Creatinine Estim Creat Clear Calc Estimated GFR Random Glucose Calcium Total Bilirubin AST ALT Alkaline Phosphatase Total Protein Albumin Urine Color Urine Appearance Urine pH Ur Specific [place] Urine Protein Urine Glucose (UA) Urine Ketones Urine Blood Urine Nitrite Ur Leukocyte Esterase Microbiology Microbiology Results: Microbiology 01/24/21 08:45 Sputum - Suctioned Gram Stain - Final 01/24/21 08:45 Sputum - Suctioned Sputum Culture - Final Escherichia coli 01/19/21 20:01 Blood - Venous Blood Culture - Final No growth after 5 days. 01/19/21 20:04 Blood - Venous Blood Culture - Final No growth after 5 days. 01/21/21 11:55 Sputum - Suctioned Gram Stain - Final 01/21/21 11:55 Sputum - Suctioned Sputum Culture - Final Escherichia coli Streptococcus constellatus Progress Note: A&P Time Spent With Patient Time: Total time spent is greater than 50% in coordination of care (as documented) at patient's floor/unit and/or counseling patient: Total time spent with greater than 50% in coordination of care (as documented) at patient's floor/unit and/or counseling patient:: 0
[2021-01-28 13:49] LABS: Magnesium 2.1 mg/dL (1.6-2.6); Phosphorus 2.9 mg/dL (2.7-4.5)
[2021-01-28] MEDS: Thiamine HCL 100 MG TABLET 200 MG PO (14:23)
[2021-01-28] MEDS: Furosemide 40 MG/4 ML VIAL IVPUSH (14:23)
--- NOTE | 2021-01-28 14:27 | PC.NURSE ---
checked with MD about order to DC fentanyl, MD states keep Drip running until titrated off and states he will renew order. Pt has been up in recliner, able to stand pivot to commode and back to chair. He remains disoriented and impulsive at times but is easily redirectable
[2021-01-28] MEDS: Potassium Chloride/H20 40 MEQ/100 ML PIGGYBACK 25 MEQ IV (14:46)
--- NOTE | 2021-01-28 14:53 | PC.NURSE ---
pt appears uncomfortable, he has been groaning. Asked pt if he is having pain, he states no. He then states I have Celiac disease. and asked to use commode. Pt then states he does not need commode. Updated allergies, will continue to observe.
[2021-01-28] MEDS: Enoxaparin Sodium 40 MG/0.4 ML SYRINGE SUBCUT (15:22)
[2021-01-28] MEDS: Metoprolol Tartrate 25 MG TABLET PO ×2 (15:23→21:53)
[2021-01-28] MEDS: Escitalopram Oxalate 20 MG TABLET PO (16:55)
[2021-01-28] MEDS: QUEtiapine Fumarate 50 MG TABLET 100 MG PO (21:53)
[2021-01-29] VITALS (15 sets, daily range): BP systolic 133–154; BP diastolic 69–95; PULSE 73–103; RESP 12–35; TEMP 36.6–38.3; O2SAT 90–97; BMI 27.8
[2021-01-29] MEDS: LORazepam 2 MG/ML VIAL 1 MG IVPUSH (03:29)
--- NOTE | 2021-01-29 05:23 | PC.NURSE ---
ASSUMED CARE OF PT AT 1900. PT VAGUE. ORIENTED TO PLACE BUT NOT SITUATION. PLEASANT AND CALM AT BEGINNING OF SHIFT BUT BECAME ANXIOUS AND RESTLESS. ATIVAN GIVEN ORDERED PRN AND PT WAS ABLE TO FALL ASLEEP. THIS WAS AT 0330. PT HAS HAD A FEW BM'S AND EACH TIME THE STOOL GOT LOOSER. PT GOT OOB TO BEDSIDE COMMODE X2 AND USED BEDPAN X3. HE IS VERY WEAK AND NEEDS 2 ASSISTS TO STAND OR TAKE STEPS. SKIN IS INTACT. RECTAL AREA RED. BARRIER CREAM APPLIED. VITAL SIGNS STABLE. TEMP 100.4-100.8 CORE. PT INSTRUCTED ON THE USE of the incentive spirometor AND WAS ABLE TO DO THIS TO A MAX OF 2500ML. CLEMENT CATH REMOVED AT THIS TIME, 0500. PT TOLERATED THIS WELL.
[2021-01-29 05:55] LABS: Basophils Percent Auto 0.2 % (0-2); Eosinophils Absolute Auto 0.1 X10*3/uL (0.0-0.4); Hematocrit 35.7 % (42-52); Hemoglobin 12.5 g/dl (14.0-18.0); Imm Gran Abs Auto 0.07 X10*3/uL (0.00-0.03); Imm Gran Pct Auto 0.6 % (0.0-0.4); Lymphocytes Absolute Auto 2.2 X10*3/uL (1.2-4.9); Lymphocytes Percent Auto 17.5 % (20-40); MANUAL DIFF FLAG SCAN; Mean Corpuscular Hemoglobin 31.2 pg (27.0-33.0); Mean Platelet Volume 10.9 fL (9.4-12.4); Monocytes Absolute Auto 1.9 X10*3/uL (0.1-1.2); Monocytes Percent Auto 15.6 % (2-11); Neutrophils Percent Auto 65.1 % (45-73); Platelet Count 492 X10*3/uL (160-400); Red Blood Count 4.01 X10*6/uL (4.60-5.80); Red Cell Distribution Width 12.9 % (11.0-16.0); SCAN SMEAR FLAG 1; White Blood Count 12.3 X10*3/uL (4.8-10.8)
[2021-01-29 06:15] LABS: SLIDE REVIEW VERIFIED
[2021-01-29 06:29] LABS: Alanine Aminotransferase 181 U/L (0-40); Albumin Level 3.5 g/dL (3.5-5.0); Alkaline Phosphatase 90 U/L (39-117); Anion Gap 13 (12-20); Aspartate Amino Transferase 202 U/L (5-37); Bilirubin Total 0.6 mg/dL (0.0-1.0); Blood Urea Nitrogen 10 mg/dL (9-16); Calcium 8.6 mg/dL (8.4-10.2); Carbon Dioxide 29 mmol/L (22-29); Chloride 100 mmol/L (96-108); Creatinine Clr Calc Pharmacy 157.7; Estimated Glomerular Filt Rate > 60; Glucose Random 105 mg/dL (60-115); Phosphorus 2.8 mg/dL (2.7-4.5); Potassium 3.1 mmol/L (3.3-5.1); Sodium 139 mmol/L (135-145); Total Protein 6.1 g/dL (6.5-8.0)
[2021-01-29] MEDS: Famotidine 20 MG TABLET PO (09:27)
[2021-01-29] MEDS: Fenofibrate 160 MG TABLET PO (09:27)
[2021-01-29] MEDS: Escitalopram Oxalate 20 MG TABLET PO (09:27)
[2021-01-29] MEDS: Metoprolol Tartrate 25 MG TABLET PO ×2 (09:27→20:21)
[2021-01-29] MEDS: Thiamine HCL 100 MG TABLET PO (09:27)
--- NOTE | 2021-01-29 10:53 | PC.NURSE ---
care assumed at 0700 this am. pt alert to self and place, disoriented to context of situation and time. pt continually weaned off of supplemental o2, down to 3l nc today maintaining spo2>95%. tolerating po meds and ate all of breakfast. continues to have loose bm, provider aware. pt only being given gluten free diet at this point. plan for downgrade to intermediate care today. has had mother for visit this am, pleasant in conversation.
--- NOTE | 2021-01-29 14:45 | PC.NURSE ---
Shift eval 11a-3p: Patient out of bed from approx 11:10am to 2pm - attempted to eat lunch, refused solid food. Ate small amt of jello and apple sauce. Patient cooperative, forgetful, but following directions. Oriented to name and place, not to situation. Patient weaned to room air from 3 liters. O2sat 94-96% on room air. non-prod cough. GRANT, but no issues at rest. 2500+ on insent spirom. Patient already IMC level of care since AM, plan to move to 2 from [facility] at this time.
[2021-01-29] MEDS: Enoxaparin Sodium 40 MG/0.4 ML SYRINGE SUBCUT (16:40)
--- NOTE | 2021-01-29 17:51 | HO.PM.IMPN ---
Subjective Subjective Date of Service: 03/11/21 Interval History: Seen in f/u post ICU care for confusion, believed to be related to alcohol withdrawal--and required intubation and mechanical ventilation. He is doing well presently he's alert, oriented to self, place and time and very cooperative. Review of Systems Gen: no fever Resp: no sob, no cough CV: no chest, no GRANT, no leg edema GI: No n/v, no abd pain Neuro: No confusion Physical Exam Vital Signs: Vital Signs: Last Vital Signs Temp 97.9 F 01/29/21 15:47 Pulse 73 01/29/21 15:47 Resp 18 01/29/21 15:47 BP 145/85 H 01/29/21 15:47 Pulse Ox 91 L 01/29/21 15:47 Body Mass Index 27.8 General: AO X 3, no acute distress Resp: CTA bilateral CVS: S1,S2,RRR GI: +BS, NT, no distention Skin: No rash Neuro: motor grossly intact Psych: appropriate affect Objective Data Current Medications Generic Name Dose Route Start Last Admin Trade Name Freq PRN Reason Stop Dose Admin Enoxaparin Sodium 40 mg 01/19/21 15:00 01/29/21 16:40 Enoxaparin Sodium 40 Mg/0.4 Ml Syringe SUBCUT 40 mg Q24H KAYLEIGH Administration Escitalopram Oxalate 20 mg 01/28/21 15:45 01/29/21 09:27 Escitalopram Oxalate 20 Mg Tablet PO 20 mg DAILY KAYLEIGH Administration Famotidine 20 mg 01/29/21 09:00 01/29/21 09:27 Famotidine 20 Mg Tablet PO 20 mg DAILY KAYLEIGH Administration Fenofibrate 160 mg 01/29/21 09:00 01/29/21 09:27 Fenofibrate 160 Mg Tablet PO 160 mg DAILY KAYLEIGH Administration Folic Acid 2 mg 01/20/21 09:00 01/29/21 09:28 Folic Acid 1 Mg/0.2 Ml Syringe IVPUSH 2 mg DAILY KAYLEIGH Administration Lorazepam 1 mg 01/28/21 13:02 01/29/21 03:29 Lorazepam 2 Mg/Ml Vial IVPUSH 1 mg Q2H PRN Administration anxiety/restlessness Metoprolol Tartrate 25 mg 01/28/21 21:00 01/29/21 09:27 Metoprolol Tartrate 25 Mg Tablet PO 25 mg BID KAYLEIGH Administration Protocol Quetiapine Fumarate 100 mg 01/28/21 21:00 01/28/21 21:53 Quetiapine Fumarate 50 Mg Tablet PO 100 mg BEDTIME KAYLEIGH Administration Thiamine HCl 100 mg 01/29/21 09:00 01/29/21 09:27 Thiamine Hcl 100 Mg Tablet PO 100 mg DAILY KAYLEIGH Administration Labs CBC & Chem 7: 01/31/21 05:44 01/31/21 05:44 Microbiology Microbiology Results: Microbiology 01/27/21 15:05 Blood - Venous Blood Culture - Preliminary No growth after 48 hours. 01/27/21 15:05 Blood - Venous Blood Culture - Preliminary No growth after 48 hours. 01/27/21 Unknown Urine Catheterized - Olivier Catheter Urine Culture - Final No growth. 01/24/21 08:45 Sputum - Suctioned Gram Stain - Final 01/24/21 08:45 Sputum - Suctioned Sputum Culture - Final Escherichia coli 01/19/21 20:01 Blood - Venous Blood Culture - Final No growth after 5 days. 01/19/21 20:04 Blood - Venous Blood Culture - Final No growth after 5 days. 01/21/21 11:55 Sputum - Suctioned Gram Stain - Final 01/21/21 11:55 Sputum - Suctioned Sputum Culture - Final Escherichia coli Streptococcus constellatus Assessment and Plan (1) Acute renal failure: Status: Resolved (2) Rhabdomyolysis: Status: Resolved (3) Pulmonary aspiration: Status: Resolved (4) Acute respiratory failure: Status: Resolved (5) DTs (delirium tremens): Status: Resolved (6) Alcohol withdrawal: Status: Resolved (7) Hypercalcemia: Status: Resolved Assessment and Plan: 50/male with history of TBI and alcoholism and had been sober for sometimes but apparently started drinking again according to brother. He presented to the ED on 19 January with AMS, hallucination and that time was believed to be withdrawing from alcohol. He didn't improve from conventional meds in the ED and hence was admitted to the ICU and required mechanical ventilation and sedation. ICU course complicated by pulmonary aspiration, mild Demetrius and rhabdo all of it improved. Extubated on January 26 and noted to have fever and aspiration on January 27 and transfer from ICU service on january 28. Today he's completely lucid and cooperative with no apparent evidence of withdrawal. Alcohol withdrawal/DTs--resolved s/p management in ICU CARE team consult in tomorrow contineu Thiamine and Folate DEMETRIUS mild, max Cr was 1.2, now within normal HTN--started on Metorprolol BP ok, monitor Mood desorder--Continue Seroquel and Celexa Aspiration Pneumonitis--CXR on 01/27 sowed steff infiltrate, and WBC was high 14K, ICU elected for no Abx, WBC is now 12 and no more fever, O2 sat ranges from 90 to 97. I am adding Augmentin for 5 days. Mild HypOkalemia--oral K and repeat in the morning, check magnesium
[2021-01-29] MEDS: Amoxicillin/Potassium Clav 875 MG TABLET PO (20:21)
[2021-01-29] MEDS: QUEtiapine Fumarate 50 MG TABLET 100 MG PO (20:21)
[2021-01-29] MEDS: Potassium Chloride Packet 20 MEQ PACKET 40 MEQ PO (20:23)
[2021-01-30] VITALS (8 sets, daily range): BP systolic 140–161; BP diastolic 77–92; PULSE 74–87; RESP 18–20; TEMP 36.3–37.4; O2SAT 91–99; BMI 27.3
[2021-01-30 06:47] LABS: Anion Gap 17 (12-20); Blood Urea Nitrogen 9 mg/dL (9-16); Calcium 8.9 mg/dL (8.4-10.2); Carbon Dioxide 22 mmol/L (22-29); Chloride 105 mmol/L (96-108); Creatinine Clr Calc Pharmacy 132.4; Estimated Glomerular Filt Rate > 60; Glucose Random 104 mg/dL (60-115); Potassium 3.4 mmol/L (3.3-5.1); Sodium 141 mmol/L (135-145)
[2021-01-30] MEDS: Fenofibrate 160 MG TABLET PO (09:04)
[2021-01-30] MEDS: Thiamine HCL 100 MG TABLET PO (09:04)
[2021-01-30] MEDS: Metoprolol Tartrate 25 MG TABLET PO ×2 (09:04→20:38)
[2021-01-30] MEDS: Escitalopram Oxalate 20 MG TABLET PO (09:04)
[2021-01-30] MEDS: Famotidine 20 MG TABLET PO (09:04)
[2021-01-30] MEDS: Amoxicillin/Potassium Clav 875 MG TABLET PO ×2 (09:04→19:29)
[2021-01-30 09:16] LABS: Alanine Aminotransferase 156 U/L (0-40); Aspartate Amino Transferase 107 U/L (5-37)
--- NOTE | 2021-01-30 10:38 | PM.DS ---
DS: Providers Provider Date of Service: 01/31/21 <Leslie Gaines NP - Last Filed: 01/31/21 10:24> 02/04/21 <YOON Bridges - Last Filed: 02/04/21 10:16> 02/06/21 <Ruperto Mckeon MD - Last Filed: 02/06/21 15:11> Date of admission: 01/19/21 14:41 <Leslie Gaines NP - Last Filed: 01/31/21 10:24> Primary care physician: Unknown Physician <Leslie Gaines NP - Last Filed: 01/31/21 10:24> Consults: 01/19/21 02:11 Consult to Crisis Stat Reason for consultation: paranoid, visual hallucinations, unknown psych history or medications Has provider been notified: No 01/27/21 11:53 Consult to Psychiatry Stat Consulting Provider: Manda Barron Reason for consultation: Delirium, ? antipsychotic or other drug withdrawal Has provider been notified: Yes <Leslie Gaines NP - Last Filed: 01/31/21 10:24> DS: Diagnosis Discharge Diagnosis (1) Acute renal failure: Status: Acute <Leslie Gaines NP - Last Filed: 01/31/21 10:24> (2) Rhabdomyolysis: Status: Acute <Leslie Gaines NP - Last Filed: 01/31/21 10:24> (3) Pulmonary aspiration: Status: Acute <Leslie Gaines NP - Last Filed: 01/31/21 10:24> (4) Acute respiratory failure: Status: Acute <Leslie Gaines NP - Last Filed: 01/31/21 10:24> (5) DTs (delirium tremens): Status: Acute <Leslie Gaines NP - Last Filed: 01/31/21 10:24> (6) Alcohol withdrawal: Status: Acute <Leslie Gaines NP - Last Filed: 01/31/21 10:24> (7) Hypercalcemia: Status: Acute <Leslie Gaines NP - Last Filed: 01/31/21 10:24> DS: Medications Discharge Medications Home Medications: Home Medications Medication Instructions Recorded Confirmed cholecalciferol (vitamin D3) 1 cap PO DAILY 01/19/21 01/22/21 [Vitamin D3] citalopram 1 tab PO DAILY 01/19/21 01/22/21 fenofibrate nanocrystallized 1 tab PO DAILY 01/19/21 01/22/21 naltrexone 1 tab PO DAILY PRN 01/19/21 01/22/21 quetiapine 1 tab PO BEDTIME 01/19/21 01/22/21 quetiapine 1 tab PO BEDTIME 01/19/21 01/22/21 quetiapine 1 tab PO BID 01/19/21 01/22/21 <Leslie Gaines NP - Last Filed: 01/31/21 10:24> DS: Summary Hospital Course Hospital Course: HP as per admitting provider 50-year-old gentleman with underlying history of traumatic brain injury, depression, anxiety, psychotic features, hyperlipidemia, and alcohol abuse admitted on 01/19/2021 for acute alteration of mental status, severe agitation, and psychotic features when he was brought in by police for hallucinations after police found him talking to a lamp in his apartment. His utox was positive for marijuana. However he remained significantly agitated and unresponsive to initial treatment with parenteral antipsychotic, benzodiazepines, and antihistamines. He has been admitted to intensive care unit on a sedative drip . Encephalopathy/alcohol withdrawal He was brought in he ED by the police due to hallucinations. His utox was positive for marijuana and encephalopathy was thought to be related to substance abuse. He was loaded with phenobarbitol due to heavy alcohol abuse but he continued to be agitated and required multiple sedating medications therefor he was subsequently transferred to ICU. Patient required sedation and intubation for airway protection. He had a complicated course in the ICU requiring paralytic agent several times due to agitation. CPK was noted to be elevated at 5100, he was treated with IV fluids. Creatinine peaked at 1.2. He developed aspiration pneumonia and sputum g stain showed resistant E coli and Streptococcus, patient was started on Unasyn. Patient was subsequently weaned from the ventilator and was started on Lamictal than Seroquel. After extubation patient was delirious and agitated but responded well to Ativan boluses. Acute kidney injury was thought to to the rhabdomyolysis and did resolve with IVF. 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 There was concern about safe disposition due to cognitive impairment and placement to short-term rehab was initially pursued however the patient improved significantly over the past 48 hours and was seen by Psychiatry on the day of discharge who deemed the patient to be competent, therefore he will be discharged home. Aspiration pneumonia Has completed course of antibiotics Alcohol withdrawal See above. Patient was seen by care team who provided resource is to maintain sobriety. The patient reports being committed to staying sober. He was supplemented with thiamine and folate which we will be discharged on. Transaminitis Improving. likely r/t underlying alcohol use. Follow up with PCP to follow liver function HTN Started on metoprolol. should follow up with PCP for close blood pressure monitoring saying its likely Attending Attestation; Patient seen and examined independently and I was present during galeas portion of E/M service. Agree with YOON Walton's history, physical, assessment, and plan. Seen and examined on the day of d/c. Seen by psych and deemed competent to make his own decision. D/C home. <Leslie Gaines NP - Last Filed: 01/31/21 10:24> Time Spent with Patient Time attestation: Total time spent providing and/or coordinating discharge services: <Leslie Gaines NP - Last Filed: 01/31/21 10:24> Discharge coordination time: Greater than 30 minutes <YOON Bridges - Last Filed: 02/04/21 10:16> Physical Exam Vital Signs: Vital Signs: Last Vital Signs Temp 97.4 F 01/30/21 08:00 Pulse 87 01/30/21 08:00 Resp 20 01/30/21 08:00 BP 157/87 H 01/30/21 08:00 Pulse Ox 96 01/30/21 08:00 Body Mass Index 27.3 <Leslie Gaines NP - Last Filed: 01/31/21 10:24> Const: Nutritional Appearance: well nourished <YOON Bridges - Last Filed: 02/04/21 10:16> Orientation/consciousness: patient oriented x3 <YOON Bridegs - Last Filed: 02/04/21 10:16> HENMT: Head: Yes normocephalic and Yes atraumatic <YOON Bridges - Last Filed: 02/04/21 10:16> Eyes: Sclerae: sclerae normal <YOON Bridges - Last Filed: 02/04/21 10:16> Chest: Chest palpation & inspection: normal inspection of the chest <YOON Bridges - Last Filed: 02/04/21 10:16> Resp: Effort & Inspection: normal respiratory effort and no respiratory distress <YOON Bridges - Last Filed: 02/04/21 10:16> Cardio: Rate: regular rate <YOON Bridges - Last Filed: 02/04/21 10:16> Rhythm: regular rhythm <YOON Bridges - Last Filed: 02/04/21 10:16> Neuro: General: patient oriented x3 <YOON Bridges - Last Filed: 02/04/21 10:16> DS: Data Data Completed and Pending Labs on day of discharge: Laboratory Results - last 24 hr 01/30/21 05:32 Sodium 141 Potassium 3.4 Chloride 105 Carbon Dioxide 22 Anion Gap 17 BUN 9 Creatinine 0.66 Estim Creat Clear Calc 132.4 Estimated GFR > 60 Random Glucose 104 Calcium 8.9 AST 107 H ALT 156 H Preliminary micro results at discharge 01/27/21 15:05 Blood Culture - Preliminary Blood - Venous No growth after 48 hours. 01/27/21 15:05 Blood Culture - Preliminary Blood - Venous No growth after 48 hours. <Leslie Gaines NP - Last Filed: 01/31/21 10:24> Discharge Plan Discharge Patient Disposition: Home, Self-Care <Leslie Gaines NP - Last Filed: 01/31/21 10:24> Referrals: Physician,Unknown [Primary Care Provider] - 1 Week (PLEASE CALL YOUR INSURANCE AND LIST A PRIMARY CARE PROVIDER. THEN CALL THE OFFICE AND MAKE A NEW PATIENT APPOINTMENT.) <Leslie Gaines NP - Last Filed: 01/31/21 10:24> Discharge Medications: New metoprolol tartrate 25 mg Tablet 25 mg PO BID 30 Days Qty: 60 RF: 0 folic acid 1 mg Tablet 1 mg PO DAILY 30 Days Qty: 30 RF: 0 thiamine mononitrate (vit B1) 100 mg Tablet 100 mg PO DAILY 30 Days Qty: 30 RF: 0 Continued citalopram 40 mg tablet 1 tab PO DAILY RF: 0 naltrexone 50 mg tablet 1 tab PO DAILY PRN (Reason: Withdrawal Symptoms) RF: 0 quetiapine 200 mg tablet 1 tab PO BEDTIME RF: 0 cholecalciferol (vitamin D3) [Vitamin D3] 25 mcg (1,000 unit) capsule 1 cap PO DAILY RF: 0 quetiapine 50 mg tablet 1 tab PO BID RF: 0 fenofibrate nanocrystallized 145 mg tablet 1 tab PO DAILY RF: 0 Discontinued quetiapine 300 mg tablet 1 tab PO BEDTIME RF: 0 <Leslie Gaines NP - Last Filed: 01/31/21 10:24> Discharge Orders: Discharge Order (Routine); Ordered 02/03/21 Ordered By: Remedios Neely <Leslie Gaines NP - Last Filed: 01/31/21 10:24> Activity on Discharge: As tolerated <Leslie Gaines NP - Last Filed: 01/31/21 10:24> As tolerated <YOON Bridges - Last Filed: 02/04/21 10:16> As tolerated <Ruperto Mckeon MD - Last Filed: 02/06/21 15:11> Stand Alone Forms: Patient Portal Discharge page <Leslie Gaines NP - Last Filed: 01/31/21 10:24> Care Plan Goals: See below <Leslie Gaines NP - Last Filed: 01/31/21 10:24> Health Concerns: Alcohol dependence with withdrawal - resolved. Encephalopathy. Resolved <Leslie Gaines NP - Last Filed: 01/31/21 10:24> Plan of Treatment: alcohol dependence - seen by Care Team, resources given. Complete abstinence from alcohol encouraged. Please call your PCP to schedule a follow-up appointment in the next 1-2 weeks transaminitis - please follow up with PCP to follow liver function HTN You were started on a new medication for your blood pressure. Please call PCP to follow up and monitor blood pressure. <Leslie Gaines NP - Last Filed: 01/31/21 10:24> Discharge Date/Time: 02/03/21 15:41 <Leslie Gaines NP - Last Filed: 01/31/21 10:24>
--- NOTE | 2021-01-30 10:56 | HO.PM.IMPN ---
Subjective Subjective Date of Service: 01/30/21 Interval History: Follow up aspiration pneumonia and encephalopathy. Feeling more awake today but still confused Review of Systems Gen: no fever Resp: no sob, no cough CV: no chest, no GRANT, no leg edema GI: No n/v, no abd pain Neuro: No confusion Physical Exam Vital Signs: Vital Signs: Last Vital Signs Temp 97.4 F 01/30/21 08:00 Pulse 87 01/30/21 08:00 Resp 20 01/30/21 08:00 BP 157/87 H 01/30/21 08:00 Pulse Ox 96 01/30/21 08:00 Body Mass Index 27.3 Appearing in no acute distress lung sounds are clear to auscultation heart regular rate rhythm, clear S1, S2 positive bowel sounds, abdomen is soft, nontender neuro patient is alert and oriented to self, no focal deficits Objective Data Current Medications Generic Name Dose Route Start Last Admin Trade Name Freq PRN Reason Stop Dose Admin Amoxicillin/Clavulanate Potassium 875 mg 01/29/21 20:00 01/30/21 09:04 Amoxicillin/Potassium Clav 875 Mg Tablet PO 02/03/21 08:01 875 mg Q12H KAYLEIGH Administration Enoxaparin Sodium 40 mg 01/19/21 15:00 01/29/21 16:40 Enoxaparin Sodium 40 Mg/0.4 Ml Syringe SUBCUT 40 mg Q24H KAYLEIGH Administration Escitalopram Oxalate 20 mg 01/28/21 15:45 01/30/21 09:04 Escitalopram Oxalate 20 Mg Tablet PO 20 mg DAILY KAYLEIGH Administration Famotidine 20 mg 01/29/21 09:00 01/30/21 09:04 Famotidine 20 Mg Tablet PO 20 mg DAILY KAYLEIGH Administration Fenofibrate 160 mg 01/29/21 09:00 01/30/21 09:04 Fenofibrate 160 Mg Tablet PO 160 mg DAILY KAYLEIGH Administration Folic Acid 1 mg 01/31/21 09:00 Folic Acid 1 Mg Tablet PO DAILY KAYLEIGH Lorazepam 1 mg 01/28/21 13:02 01/29/21 03:29 Lorazepam 2 Mg/Ml Vial IVPUSH 1 mg Q2H PRN Administration anxiety/restlessness Metoprolol Tartrate 25 mg 01/28/21 21:00 01/30/21 09:04 Metoprolol Tartrate 25 Mg Tablet PO 25 mg BID KAYLEIGH Administration Protocol Quetiapine Fumarate 100 mg 01/28/21 21:00 01/29/21 20:21 Quetiapine Fumarate 50 Mg Tablet PO 100 mg BEDTIME KAYLEIGH Administration Thiamine HCl 100 mg 01/29/21 09:00 01/30/21 09:04 Thiamine Hcl 100 Mg Tablet PO 100 mg DAILY KAYLEIGH Administration Labs CBC & Chem 7: 01/29/21 05:30 01/30/21 05:32 Microbiology Microbiology Results: Microbiology 01/27/21 15:05 Blood - Venous Blood Culture - Preliminary No growth after 48 hours. 01/27/21 15:05 Blood - Venous Blood Culture - Preliminary No growth after 48 hours. 01/27/21 Unknown Urine Catheterized - Olivier Catheter Urine Culture - Final No growth. 01/24/21 08:45 Sputum - Suctioned Gram Stain - Final 01/24/21 08:45 Sputum - Suctioned Sputum Culture - Final Escherichia coli 01/19/21 20:01 Blood - Venous Blood Culture - Final No growth after 5 days. 01/19/21 20:04 Blood - Venous Blood Culture - Final No growth after 5 days. 01/21/21 11:55 Sputum - Suctioned Gram Stain - Final 01/21/21 11:55 Sputum - Suctioned Sputum Culture - Final Escherichia coli Streptococcus constellatus Assessment and Plan (1) Pulmonary aspiration: Status: Acute (2) Acute renal failure: Status: Acute (3) Rhabdomyolysis: Status: Acute (4) Acute respiratory failure: Status: Acute (5) DTs (delirium tremens): Status: Acute (6) Alcohol withdrawal: Status: Acute (7) Hypercalcemia: Status: Acute Assessment and Plan: 50 year old male with history of TBI and alcoholism and had been sober for sometimes but apparently started drinking again according to brother. He presented to the ED on 19 January with AMS, hallucination and that time was believed to be withdrawing from alcohol. He didn't improve from conventional meds in the ED and hence was admitted to the ICU and required mechanical ventilation and sedation. ICU course complicated by pulmonary aspiration, mild Demetrius and rhabdo all of it improved. Extubated on January 26 and noted to have fever and aspiration on January 27 and transfer from ICU service on january 28. Today he's completely lucid and cooperative with no apparent evidence of withdrawal. Toxic encephalopathy. Better today but still confused, mentioned that someone will sell his furniture at his house. His brother denied that would happen. Not ready for discharge yet until option for possible placement due to mental status. -PT/OT consult -Neuro consult for further management of continued encephalopathy #Alcohol withdrawal/DTs. Resolved s/p management in ICU -CARE team consult in tomorrow -continue Thiamine and Folate #Aspiration Pneumonitis. -transitioned from Unasyn to Augmentin 10 doses, on dose # 3 #DEMETRIUS mild. Max Cr was 1.2, now within normal -avoid nephrotoxins #HTN. -continue Metoprolol #Mood disorder. -continue Seroquel and Celexa #Mild Hypokalemia. Resolved
--- NOTE | 2021-01-30 12:11 | MHC.CLN ---
F/U PO INTAKE VARIABLE DIET RX: GLUTEN FREE-APPROPRIATE FOLLOWING
--- NOTE | 2021-01-30 13:49 | P.CNNE_ITS ---
History of Present Illness Data of Consult Service Date: 01/30/21 Primary Care Provider: Unknown Physician 50 years old man with underlying history of alcohol abuse and probably psychiatric illness who was brought to hospital with change in mental status suggestive of an acute worsening of psychiatric disease. He said that he was also drinking what could on daily basis. When I saw him he was comfortably sitting talking to someone over the phone. There was no sign of distress. Review of Systems Review of Systems: At this time no headache or any change in his ear or eye function or loss of bowel bladder control no focal weakness PMFSH Social History Social History Household Members: Unknown / Unable to assess Housing: Unknown / Unable to assess Alcohol intake: unknown Smoking Status: Unknown if ever smoked Substance Use Type: Marijuana service: No Current occupational status: unemployed Meds Allergies Allergy/AdvReac Type Severity Reaction Status Date / Time gluten Allergy Abdominal Verified 01/28/21 14:50 Pain wheat Allergy Abdominal Verified 01/28/21 14:50 Pain Active Medications: Current Medications Generic Name Dose Route Start Last Admin Trade Name Freq PRN Reason Stop Dose Admin Amoxicillin/Clavulanate Potassium 875 mg 01/29/21 20:00 01/30/21 09:04 Amoxicillin/Potassium Clav 875 Mg Tablet PO 02/03/21 08:01 875 mg Q12H KAYLEIGH Administration Enoxaparin Sodium 40 mg 01/19/21 15:00 01/29/21 16:40 Enoxaparin Sodium 40 Mg/0.4 Ml Syringe SUBCUT 40 mg Q24H KAYLEIGH Administration Escitalopram Oxalate 20 mg 01/28/21 15:45 01/30/21 09:04 Escitalopram Oxalate 20 Mg Tablet PO 20 mg DAILY KAYLEIGH Administration Famotidine 20 mg 01/29/21 09:00 01/30/21 09:04 Famotidine 20 Mg Tablet PO 20 mg DAILY KAYLEIGH Administration Fenofibrate 160 mg 01/29/21 09:00 01/30/21 09:04 Fenofibrate 160 Mg Tablet PO 160 mg DAILY KAYLEIGH Administration Folic Acid 1 mg 01/31/21 09:00 Folic Acid 1 Mg Tablet PO DAILY KAYLEIGH Lorazepam 1 mg 01/28/21 13:02 01/29/21 03:29 Lorazepam 2 Mg/Ml Vial IVPUSH 1 mg Q2H PRN Administration anxiety/restlessness Metoprolol Tartrate 25 mg 01/28/21 21:00 01/30/21 09:04 Metoprolol Tartrate 25 Mg Tablet PO 25 mg BID KAYLEIGH Administration Protocol Quetiapine Fumarate 100 mg 01/28/21 21:00 01/29/21 20:21 Quetiapine Fumarate 50 Mg Tablet PO 100 mg BEDTIME KAYLEIGH Administration Thiamine HCl 100 mg 01/29/21 09:00 01/30/21 09:04 Thiamine Hcl 100 Mg Tablet PO 100 mg DAILY KAYLEIGH Administration Home Medications Medication Instructions Recorded Confirmed Last Taken Type cholecalciferol (vitamin D3) 1 cap PO DAILY 01/19/21 01/22/21 Unknown History [Vitamin D3] citalopram 1 tab PO DAILY 01/19/21 01/22/21 Unknown History fenofibrate nanocrystallized 1 tab PO DAILY 01/19/21 01/22/21 Unknown History naltrexone 1 tab PO DAILY PRN 01/19/21 01/22/21 Unknown History quetiapine 1 tab PO BEDTIME 01/19/21 01/22/21 Unknown History quetiapine 1 tab PO BEDTIME 01/19/21 01/22/21 Unknown History quetiapine 1 tab PO BID 01/19/21 01/22/21 Unknown History Physical Exam Vital Signs: Vital Signs: Last Vital Signs Temp 98.6 F 01/30/21 12:00 Pulse 86 01/30/21 12:00 Resp 20 01/30/21 12:00 BP 140/85 H 01/30/21 12:00 Pulse Ox 98 01/30/21 12:00 Body Mass Index 27.3 He was alert and awake with normal spontaneity of speech fluency comprehension and wake affect. He had difficulty remembering what had happened and what situ ations he was brought to hospital. He had in fact no recollection of that. Pupils were equal and reactive to light and extraocular muscles were intact. Visual dyer are full to confrontation. Face was symmetrical. There was no obvious focal arm or leg weakness. Deep tendon reflexes were 2+ with flexor plantars. [id number] testing revealed mild ataxia bilaterally. Results Labs CBC & Chem 7: 01/29/21 05:30 01/30/21 05:32 Labs: BMP 01/30/21 05:32 Sodium 141 Potassium 3.4 Chloride 105 Carbon Dioxide 22 BUN 9 Creatinine 0.66 Calcium 8.9 Liver Function 01/30/21 Range/Units 05:32 AST 107 H (5-37) U/L ALT 156 H (0-40) U/L His noncontrast head CT revealed moderately severe diffuse cerebral and cerebellar atrophy. Microbiology Microbiology Results: Microbiology 01/27/21 15:05 Blood - Venous Blood Culture - Preliminary No growth after 48 hours. 01/27/21 15:05 Blood - Venous Blood Culture - Preliminary No growth after 48 hours. 01/27/21 Unknown Urine Catheterized - Olivier Catheter Urine Culture - Final No growth. 01/24/21 08:45 Sputum - Suctioned Gram Stain - Final 01/24/21 08:45 Sputum - Suctioned Sputum Culture - Final Escherichia coli 01/19/21 20:01 Blood - Venous Blood Culture - Final No growth after 5 days. 01/19/21 20:04 Blood - Venous Blood Culture - Final No growth after 5 days. 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 There was significant cerebral and cerebellar atrophy, which could result in confusion, forgetfulness, anxiety, depression, irrational behavior, agitation and sometime mariela psychotic features. Mainstay of management is avoidance of alcohol, community support, and sometimes of psychotropic medications to manage symptoms.
[2021-01-30] MEDS: Enoxaparin Sodium 40 MG/0.4 ML SYRINGE SUBCUT (16:38)
[2021-01-30] MEDS: QUEtiapine Fumarate 50 MG TABLET 100 MG PO (20:39)
[2021-01-31 03:42] VITALS: BP 146/76; PULSE 74; RESP 18; TEMP 37.5; O2SAT 92
[2021-01-31 06:00] VITALS: BMI 27.1
[2021-01-31 06:16] LABS: MANUAL DIFF FLAG NO
[2021-01-31 06:50] LABS: Basophils Absolute Auto 0.1 X10*3/uL (0.0-0.2); Basophils Percent Auto 0.6 % (0-2); Eosinophils Absolute Auto 0.2 X10*3/uL (0.0-0.4); Eosinophils Percent Auto 1.7 % (0-4); Hematocrit 36.5 % (42-52); Hemoglobin 12.4 g/dl (14.0-18.0); Imm Gran Pct Auto 0.8 % (0.0-0.4); Lymphocytes Absolute Auto 3.2 X10*3/uL (1.2-4.9); Lymphocytes Percent Auto 26.7 % (20-40); Mean Corpuscular Hemoglobin 30.5 pg (27.0-33.0); Mean Corpuscular Volume 89.7 fL (80-98); Monocytes Absolute Auto 1.1 X10*3/uL (0.1-1.2); Monocytes Percent Auto 9.4 % (2-11); Neutrophils Absolute Auto 7.3 X10*3/uL (2.0-8.3); Neutrophils Percent Auto 60.8 % (45-73); Platelet Count 589 X10*3/uL (160-400); Red Blood Count 4.07 X10*6/uL (4.60-5.80); White Blood Count 11.9 X10*3/uL (4.8-10.8)
[2021-01-31 06:56] LABS: Alanine Aminotransferase 125 U/L (0-40); Albumin Level 3.7 g/dL (3.5-5.0); Alkaline Phosphatase 73 U/L (39-117); Anion Gap 16 (12-20); Aspartate Amino Transferase 67 U/L (5-37); Bilirubin Direct 0.2 mg/dL (0.0-0.5); Bilirubin Total 0.4 mg/dL (0.0-1.0); Blood Urea Nitrogen 8 mg/dL (9-16); Calcium 9.2 mg/dL (8.4-10.2); Carbon Dioxide 25 mmol/L (22-29); Chloride 106 mmol/L (96-108); Creatinine Clr Calc Pharmacy 132.4; Estimated Glomerular Filt Rate > 60; Glucose Random 100 mg/dL (60-115); Potassium 3.7 mmol/L (3.3-5.1); Sodium 143 mmol/L (135-145); Total Protein 6.3 g/dL (6.5-8.0)
[2021-01-31 07:45] VITALS: BP 149/83; PULSE 77; RESP 18; TEMP 36.8; O2SAT 96
[2021-01-31 08:24] VITALS: BP 149/83; PULSE 77
[2021-01-31] MEDS: Thiamine HCL 100 MG TABLET PO (08:24)
[2021-01-31] MEDS: Fenofibrate 160 MG TABLET PO (08:24)
[2021-01-31] MEDS: Folic Acid 1 MG TABLET PO (08:24)
[2021-01-31] MEDS: Metoprolol Tartrate 25 MG TABLET PO ×2 (08:24→20:05)
[2021-01-31] MEDS: Amoxicillin/Potassium Clav 875 MG TABLET PO ×2 (08:24→20:05)
[2021-01-31] MEDS: Escitalopram Oxalate 20 MG TABLET PO (08:24)
[2021-01-31] MEDS: Famotidine 20 MG TABLET PO (08:24)
--- NOTE | 2021-01-31 10:24 | HO.PM.IMPN ---
Subjective Subjective Date of Service: 01/31/21 <Leslie Gaines NP - Last Filed: 01/31/21 10:29> 01/31/21 <Ruperto Mckeon MD - Last Filed: 01/31/21 16:17> Interval History: Follow up encephlaopthy. Feel fine today, still feels a little confused. <Leslie Gaines NP - Last Filed: 01/31/21 10:29> Physical Exam Vital Signs: Vital Signs: Last Vital Signs Temp 98.3 F 01/31/21 07:45 Pulse 77 01/31/21 08:24 Resp 18 01/31/21 07:45 BP 149/83 H 01/31/21 08:24 Pulse Ox 96 01/31/21 07:45 Body Mass Index 27.1 <Leslie Gaines NP - Last Filed: 01/31/21 10:29> Appearing in no acute distress lung sounds are clear to auscultation heart regular rate rhythm, clear S1, S2 positive bowel sounds, abdomen is soft, nontender neuro patient is alert x3, no focal deficits <Leslie Gaines NP - Last Filed: 01/31/21 10:29> Objective Data Current Medications Generic Name Dose Route Start Last Admin Trade Name Freq PRN Reason Stop Dose Admin Amoxicillin/Clavulanate Potassium 875 mg 01/29/21 20:00 01/31/21 08:24 Amoxicillin/Potassium Clav 875 Mg Tablet PO 02/03/21 08:01 875 mg Q12H KAYLEIGH Administration Enoxaparin Sodium 40 mg 01/19/21 15:00 01/30/21 16:38 Enoxaparin Sodium 40 Mg/0.4 Ml Syringe SUBCUT 40 mg Q24H KAYLEIGH Administration Escitalopram Oxalate 20 mg 01/28/21 15:45 01/31/21 08:24 Escitalopram Oxalate 20 Mg Tablet PO 20 mg DAILY KAYLEIGH Administration Famotidine 20 mg 01/29/21 09:00 01/31/21 08:24 Famotidine 20 Mg Tablet PO 20 mg DAILY KAYLEIGH Administration Fenofibrate 160 mg 01/29/21 09:00 01/31/21 08:24 Fenofibrate 160 Mg Tablet PO 160 mg DAILY KAYLEIGH Administration Folic Acid 1 mg 01/31/21 09:00 01/31/21 08:24 Folic Acid 1 Mg Tablet PO 1 mg DAILY KAYLEIGH Administration Lorazepam 1 mg 01/28/21 13:02 01/29/21 03:29 Lorazepam 2 Mg/Ml Vial IVPUSH 1 mg Q2H PRN Administration anxiety/restlessness Metoprolol Tartrate 25 mg 01/28/21 21:00 01/31/21 08:24 Metoprolol Tartrate 25 Mg Tablet PO 25 mg BID KAYLEIGH Administration Protocol Quetiapine Fumarate 100 mg 01/28/21 21:00 01/30/21 20:39 Quetiapine Fumarate 50 Mg Tablet PO 100 mg BEDTIME KAYLEIGH Administration Thiamine HCl 100 mg 01/29/21 09:00 01/31/21 08:24 Thiamine Hcl 100 Mg Tablet PO 100 mg DAILY KAYLEIGH Administration <Leslie Gaines NP - Last Filed: 01/31/21 10:29> Labs CBC & Chem 7: : 01/31/21 05:44 01/31/21 05:44 <Leslie Gaines NP - Last Filed: 01/31/21 10:29> Microbiology Microbiology Results: Microbiology 01/27/21 15:05 Blood - Venous Blood Culture - Preliminary No growth after 48 hours. 01/27/21 15:05 Blood - Venous Blood Culture - Preliminary No growth after 48 hours. 01/27/21 Unknown Urine Catheterized - Olivier Catheter Urine Culture - Final No growth. 01/24/21 08:45 Sputum - Suctioned Gram Stain - Final 01/24/21 08:45 Sputum - Suctioned Sputum Culture - Final Escherichia coli 01/19/21 20:01 Blood - Venous Blood Culture - Final No growth after 5 days. 01/19/21 20:04 Blood - Venous Blood Culture - Final No growth after 5 days. 01/21/21 11:55 Sputum - Suctioned Gram Stain - Final 01/21/21 11:55 Sputum - Suctioned Sputum Culture - Final Escherichia coli Streptococcus constellatus <Leslie Gaines NP - Last Filed: 01/31/21 10:29> Assessment and Plan (1) Alcoholic dementia: Status: Acute <Leslie Gaines NP - Last Filed: 01/31/21 10:29> Assessment and Plan: 50 year old male with history of TBI and alcoholism and had been sober for sometimes but apparently started drinking again according to brother. He presented to the ED on 19 January with AMS, hallucination and that time was believed to be withdrawing from alcohol. He didn't improve from conventional meds in the ED and hence was admitted to the ICU and required mechanical ventilation and sedation. ICU course complicated by pulmonary aspiration, mild Chetan and rhabdo all of it improved. Extubated on January 26 and noted to have fever and aspiration on January 27 and transfer from ICU service on january 28. Today he's completely lucid and cooperative with no apparent evidence of withdrawal. Toxic encephalopathy. possibly secondary to alcoholic dementia. Better today but still confused. -PT/OT consult -Neuro consult for further management of continued encephalopathy #Alcohol withdrawal/DTs. Resolved s/p management in ICU -CARE team consult -continue Thiamine and Folate #Aspiration Pneumonitis. -transitioned from Unasyn to Augmentin 10 doses, on dose # 4 #CHETAN mild. Resolved. Max Cr was 1.2. -avoid nephrotoxins #HTN. -continue Metoprolol #Mood disorder. -continue Seroquel and Celexa #Mild Hypokalemia. Resolved Attending: Dr. Mckeon <Leslie Gaines NP - Last Filed: 01/31/21 10:29>
[2021-01-31 11:18] VITALS: BP 141/80; PULSE 67; RESP 18; TEMP 36.6; O2SAT 96
[2021-01-31] MEDS: Enoxaparin Sodium 40 MG/0.4 ML SYRINGE SUBCUT (14:30)
[2021-01-31 15:30] VITALS: BP 150/80; PULSE 80; RESP 16; TEMP 37.1; O2SAT 96
[2021-01-31 19:37] VITALS: BP 151/81; PULSE 80; RESP 18; TEMP 37.2; O2SAT 97
[2021-01-31] MEDS: QUEtiapine Fumarate 50 MG TABLET 100 MG PO (20:04)
[2021-02-01] VITALS (9 sets, daily range): BP systolic 125–159; BP diastolic 58–91; PULSE 68–82; RESP 16–20; TEMP 36.8–37.4; O2SAT 95–99; BMI 26.9
[2021-02-01] MEDS: Metoprolol Tartrate 25 MG TABLET PO ×2 (08:30→21:39)
[2021-02-01] MEDS: Famotidine 20 MG TABLET PO (08:31)
[2021-02-01] MEDS: Thiamine HCL 100 MG TABLET PO (08:31)
[2021-02-01] MEDS: Amoxicillin/Potassium Clav 875 MG TABLET PO ×2 (08:35→21:39)
[2021-02-01] MEDS: Escitalopram Oxalate 20 MG TABLET PO (08:35)
[2021-02-01] MEDS: Fenofibrate 160 MG TABLET PO (08:35)
[2021-02-01] MEDS: Folic Acid 1 MG TABLET PO (08:35)
--- NOTE | 2021-02-01 10:00 | MHC.RECOVRN ---
50 year old male presented to [facility] ED on 01/19/21 via ambulance after police called due to pt believing women broke into his home. When police arrived, pt had been referring to inanimate objects. Upon further evaluation, pt was found to have history of TBI, depression, anxiety, and alcohol use disorder. Pt has since had a hospitalization complicated by severe agitation requiring intubation and ICU admission for toxic encephalopathy, acute respiratory failure, acute renal failure, rhabdomyolysis, and alcohol use disorder. On January 28, pt was [place] [facility] T/w met with pt in 472 to discuss alcohol use. Pt was able to fully engage in conversation with t/w and apply insight to current situation. Pt reports having over 1 year in recovery with relapse happening mid November. Pt states I received a strange phone call and that is all I can remember. Pt identifies this phone call as the trigger to return to use. Pt reports drinking 5 drinks daily (vodka) since this event.? Prior to november, pt states he achieved recovery after 30 days at [facility] and [address] [facility] in [place]. Pt has a large network and many supports in his life, including a sponsor and therapist at [facility]. Pt had been on naltrexone and Vivitrol throughout his year in recovery. Pt prefers PO naltrexone and plans on restarting that with Dr. Leiva at [facility].? Pts plan after d/c from [facility] is to reconnect with his sponsor and therapist, attend AA meetings, restart naltrexone. Pt was given other resources including information on IOP. Pt provided t/w card if questions or concerns arise.?
--- NOTE | 2021-02-01 11:18 | MHC.CM.PN ---
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 CM spoke with Patient and Brother/HCP/Bang and per that conversation, broadcast referrals have been made with the goal of finding a facility within a 20 minute radius of the [facility]. CM will follow for dc planning
--- NOTE | 2021-02-01 14:46 | HO.PM.IMPN ---
Subjective Subjective Date of Service: 02/01/21 <YOON Bridges - Last Filed: 02/01/21 14:56> 02/01/21 <Ruperto Mckeon MD - Last Filed: 02/01/21 16:14> Interval History: f/u aspiration pna, etoh withdrawal no overnight events no complaints this am <YOON Bridges - Last Filed: 02/01/21 14:56> Review of Systems Review of Systems: Yes all other systems are reviewed and are negative <YOON Bridges - Last Filed: 02/01/21 14:56> Constitutional Constitutional: Denies chills and Denies fever(s) <YOON Bridges - Last Filed: 02/01/21 14:56> Cardiovascular Cardiovascular: Denies chest pain <YOON Bridges - Last Filed: 02/01/21 14:56> Respiratory Respiratory: Denies cough <YOON Bridges - Last Filed: 02/01/21 14:56> Gastrointestinal Gastrointestinal: Denies abdominal pain <YOON Bridges - Last Filed: 02/01/21 14:56> Physical Exam Vital Signs: Vital Signs: Last Vital Signs Temp 98.9 F 02/01/21 12:00 Pulse 70 02/01/21 12:00 Resp 20 02/01/21 12:00 BP 141/80 H 02/01/21 12:00 Pulse Ox 99 02/01/21 12:00 Body Mass Index 26.9 <YOON Bridges - Last Filed: 02/01/21 14:56> Const: General: comfortable, no acute distress, alert and awake <YOON Bridges - Last Filed: 02/01/21 14:56> Nutritional Appearance: well nourished <YOON Bridges - Last Filed: 02/01/21 14:56> HENMT: Head: Yes normocephalic and Yes atraumatic <YOON Bridges - Last Filed: 02/01/21 14:56> Eyes: Sclerae: sclerae normal <YOON Bridges - Last Filed: 02/01/21 14:56> Chest: Chest palpation & inspection: normal inspection of the chest <YOON Bridges Last Filed: 02/01/21 14:56> Resp: Effort & Inspection: normal respiratory effort and no respiratory distress <YOON Bridges Last Filed: 02/01/21 14:56> Cardio: Rate: regular rate <YOON Bridges Last Filed: 02/01/21 14:56> Rhythm: regular rhythm <YOON Bridges - Last Filed: 02/01/21 14:56> GI: Palpation (GI): Soft to palpation and nontender <YOON Bridges - Last Filed: 02/01/21 14:56> Neuro: Cranial nerves: Yes CN's II-XII intact bilaterally and Yes Bilaterally intact EOM present <YOON Bridges Last Filed: 02/01/21 14:56> Extrem: General: Yes normal to inspection <YOON Bridges Last Filed: 02/01/21 14:56> Objective Data Current Medications Generic Name Dose Route Start Last Admin Trade Name Freq PRN Reason Stop Dose Admin Amoxicillin/Clavulanate Potassium 875 mg 01/29/21 20:00 02/01/21 08:35 Amoxicillin/Potassium Clav 875 Mg Tablet PO 02/03/21 08:01 875 mg Q12H KAYLEIGH Administration Enoxaparin Sodium 40 mg 01/19/21 15:00 01/31/21 14:30 Enoxaparin Sodium 40 Mg/0.4 Ml Syringe SUBCUT 40 mg Q24H KAYLEIGH Administration Escitalopram Oxalate 20 mg 01/28/21 15:45 02/01/21 08:35 Escitalopram Oxalate 20 Mg Tablet PO 20 mg DAILY KAYLEIGH Administration Famotidine 20 mg 01/29/21 09:00 02/01/21 08:31 Famotidine 20 Mg Tablet PO 20 mg DAILY KAYLEIGH Administration Fenofibrate 160 mg 01/29/21 09:00 02/01/21 08:35 Fenofibrate 160 Mg Tablet PO 160 mg DAILY KAYLEIGH Administration Folic Acid 1 mg 01/31/21 09:00 02/01/21 08:35 Folic Acid 1 Mg Tablet PO 1 mg DAILY KAYLEIGH Administration Lorazepam 1 mg 01/28/21 13:02 01/29/21 03:29 Lorazepam 2 Mg/Ml Vial IVPUSH 1 mg Q2H PRN Administration anxiety/restlessness Metoprolol Tartrate 25 mg 01/28/21 21:00 02/01/21 08:30 Metoprolol Tartrate 25 Mg Tablet PO 25 mg BID KAYLEIGH Administration Protocol Quetiapine Fumarate 100 mg 01/28/21 21:00 01/31/21 20:04 Quetiapine Fumarate 50 Mg Tablet PO 100 mg BEDTIME KAYLEIGH Administration Thiamine HCl 100 mg 01/29/21 09:00 02/01/21 08:31 Thiamine Hcl 100 Mg Tablet PO 100 mg DAILY KAYLEIGH Administration <YOON Bridges - Last Filed: 02/01/21 14:56> Labs CBC & Chem 7: : 01/31/21 05:44 01/31/21 05:44 <YOON Bridges - Last Filed: 02/01/21 14:56> Microbiology Microbiology Results: Microbiology 01/27/21 15:05 Blood - Venous Blood Culture - Preliminary No growth after 48 hours. 01/27/21 15:05 Blood - Venous Blood Culture - Preliminary No growth after 48 hours. 01/27/21 Unknown Urine Catheterized - Olivier Catheter Urine Culture - Final No growth. 01/24/21 08:45 Sputum - Suctioned Gram Stain - Final 01/24/21 08:45 Sputum - Suctioned Sputum Culture - Final Escherichia coli 01/19/21 20:01 Blood - Venous Blood Culture - Final No growth after 5 days. 01/19/21 20:04 Blood - Venous Blood Culture - Final No growth after 5 days. 01/21/21 11:55 Sputum - Suctioned Gram Stain - Final 01/21/21 11:55 Sputum - Suctioned Sputum Culture - Final Escherichia coli Streptococcus constellatus <YOON Bridges - Last Filed: 02/01/21 14:56> Assessment and Plan (1) Alcoholic dementia: Status: Acute <YOON Bridges - Last Filed: 02/01/21 14:56> (2) Pulmonary aspiration: Status: Acute <YOON Bridges - Last Filed: 02/01/21 14:56> Assessment and Plan: This is a 50 year old male with history of TBI and alcoholism and had been sober for sometimes but apparently started drinking again according to brother. He presented to the ED on 19 January with AMS, hallucination and that time was believed to be withdrawing from alcohol. He didn't improve from conventional meds in the ED and hence was admitted to the ICU and required mechanical ventilation and sedation. ICU course complicated by pulmonary aspiration, mild Chetan and rhabdo all of it improved. Extubated on January 26 and noted to have fever and aspiration on January 27 and transfer from ICU service on january 28. Toxic encephalopathy. Seen by neuro who feels this represents alcoholic dementia, rec avoidance of etoh Seen by PT, no need for services, rec OT eval for cognitive tasks -Will need placement for safety Alcohol withdrawal/DTs. Resolved s/p management in ICU Seen by CARE team -continue Thiamine and Folate Aspiration Pneumonitis. -Continue Augmentin 10 doses, on day # 4 #CHETAN mild. Resolved. Max Cr was 1.2. -avoid nephrotoxins #HTN. -continue Metoprolol HLD continue fenofibrate #Mood disorder. -continue Seroquel and Celexa #Mild Hypokalemia. Resolved Dispo - pending placement DVT ppx - lovenox Attending: Dr. Mckeon <YOON Bridges - Last Filed: 02/01/21 14:56> Patient seen and examined independently and I was present during galeas portion of E/M service. Agree with YOON Walton's history, physical, assessment, and plan. Pt remains medically stable for d/c, however needs safe discharge dispo as he still remains confused and not safe on his own. <Ruperto Mckeon MD - Last Filed: 02/01/21 16:14>
[2021-02-01] MEDS: Enoxaparin Sodium 40 MG/0.4 ML SYRINGE SUBCUT (17:43)
[2021-02-01] MEDS: QUEtiapine Fumarate 50 MG TABLET 100 MG PO (21:40)
[2021-02-02] VITALS (8 sets, daily range): BP systolic 118–134; BP diastolic 64–72; PULSE 60–92; RESP 18–20; TEMP 36.6–37.7; O2SAT 95–98; BMI 26.9
[2021-02-02] MEDS: Folic Acid 1 MG TABLET PO (09:19)
[2021-02-02] MEDS: Escitalopram Oxalate 20 MG TABLET PO (09:19)
[2021-02-02] MEDS: Famotidine 20 MG TABLET PO (09:19)
[2021-02-02] MEDS: Thiamine HCL 100 MG TABLET PO (09:19)
[2021-02-02] MEDS: Metoprolol Tartrate 25 MG TABLET PO ×2 (09:19→20:12)
[2021-02-02] MEDS: Fenofibrate 160 MG TABLET PO (09:19)
[2021-02-02] MEDS: Amoxicillin/Potassium Clav 875 MG TABLET PO ×2 (09:19→20:12)
--- NOTE | 2021-02-02 14:15 | HO.PM.IMPN ---
Subjective Subjective Date of Service: 02/02/21 <YOON Bridges - Last Filed: 02/02/21 16:10> 02/02/21 <Ruperto Mckeon MD - Last Filed: 02/02/21 16:35> Interval History: f/u aspiration pneumonia Wants to go home, no complaints No overnight events <YOON Bridges - Last Filed: 02/02/21 16:10> Review of Systems Review of Systems: Yes all other systems are reviewed and are negative <YOON Bridges - Last Filed: 02/02/21 16:10> Constitutional Constitutional: Denies chills and Denies fever(s) <YOON Bridges - Last Filed: 02/02/21 16:10> Cardiovascular Cardiovascular: Denies chest pain <YOON Bridges - Last Filed: 02/02/21 16:10> Respiratory Respiratory: Denies cough <YOON Bridges - Last Filed: 02/02/21 16:10> Gastrointestinal Gastrointestinal: Denies abdominal pain <YOON Bridges - Last Filed: 02/02/21 16:10> Physical Exam Vital Signs: Vital Signs: Last Vital Signs Temp 98.0 F 02/02/21 11:43 Pulse 80 02/02/21 11:43 Resp 18 02/02/21 11:43 BP 118/70 02/02/21 11:43 Pulse Ox 98 02/02/21 11:43 Body Mass Index 26.9 <YOON Bridges - Last Filed: 02/02/21 16:10> Const: General: comfortable, no acute distress, alert and awake <YOON Bridges - Last Filed: 02/02/21 16:10> Nutritional Appearance: well nourished <YOON Bridges - Last Filed: 02/02/21 16:10> HENMT: Head: Yes normocephalic and Yes atraumatic <YOON Bridges - Last Filed: 02/02/21 16:10> Eyes: Sclerae: sclerae normal <YOON Bridges - Last Filed: 02/02/21 16:10> Chest: Chest palpation & inspection: normal inspection of the chest <YOON Bridges Last Filed: 02/02/21 16:10> Resp: Effort & Inspection: normal respiratory effort and no respiratory distress <YOON Bridges Last Filed: 02/02/21 16:10> Cardio: Rate: regular rate <YOON Bridges - Last Filed: 02/02/21 16:10> Rhythm: regular rhythm <YOON Bridges - Last Filed: 02/02/21 16:10> GI: Palpation (GI): Soft to palpation and nontender <YOON Bridges - Last Filed: 02/02/21 16:10> Neuro: Cranial nerves: Yes CN's II-XII intact bilaterally and Yes Bilaterally intact EOM present <YOON Bridges Last Filed: 02/02/21 16:10> Extrem: General: Yes normal to inspection <YOON Bridges Last Filed: 02/02/21 16:10> Objective Data Current Medications Generic Name Dose Route Start Last Admin Trade Name Freq PRN Reason Stop Dose Admin Amoxicillin/Clavulanate Potassium 875 mg 01/29/21 20:00 02/02/21 09:19 Amoxicillin/Potassium Clav 875 Mg Tablet PO 02/03/21 08:01 875 mg Q12H KAYLEIGH Administration Enoxaparin Sodium 40 mg 01/19/21 15:00 02/01/21 17:43 Enoxaparin Sodium 40 Mg/0.4 Ml Syringe SUBCUT 40 mg Q24H KAYLEIGH Administration Escitalopram Oxalate 20 mg 01/28/21 15:45 02/02/21 09:19 Escitalopram Oxalate 20 Mg Tablet PO 20 mg DAILY KAYLEIGH Administration Famotidine 20 mg 01/29/21 09:00 02/02/21 09:19 Famotidine 20 Mg Tablet PO 20 mg DAILY KAYLEIGH Administration Fenofibrate 160 mg 01/29/21 09:00 02/02/21 09:19 Fenofibrate 160 Mg Tablet PO 160 mg DAILY KAYLEIGH Administration Folic Acid 1 mg 01/31/21 09:00 02/02/21 09:19 Folic Acid 1 Mg Tablet PO 1 mg DAILY KAYLEIGH Administration Metoprolol Tartrate 25 mg 01/28/21 21:00 02/02/21 09:19 Metoprolol Tartrate 25 Mg Tablet PO 25 mg BID KAYLEIGH Administration Protocol Quetiapine Fumarate 100 mg 01/28/21 21:00 02/01/21 21:40 Quetiapine Fumarate 50 Mg Tablet PO 100 mg BEDTIME KAYLEIGH Administration Thiamine HCl 100 mg 01/29/21 09:00 02/02/21 09:19 Thiamine Hcl 100 Mg Tablet PO 100 mg DAILY KAYLEIGH Administration <YOON Bridges - Last Filed: 02/02/21 16:10> Labs CBC & Chem 7: : 01/31/21 05:44 01/31/21 05:44 <YOON Bridges - Last Filed: 02/02/21 16:10> Microbiology Microbiology Results: Microbiology 01/27/21 15:05 Blood - Venous Blood Culture - Final No growth after 5 days. 01/27/21 15:05 Blood - Venous Blood Culture - Final No growth after 5 days. 01/27/21 Unknown Urine Catheterized - Olivier Catheter Urine Culture - Final No growth. 01/24/21 08:45 Sputum - Suctioned Gram Stain - Final 01/24/21 08:45 Sputum - Suctioned Sputum Culture - Final Escherichia coli 01/19/21 20:01 Blood - Venous Blood Culture - Final No growth after 5 days. 01/19/21 20:04 Blood - Venous Blood Culture - Final No growth after 5 days. 01/21/21 11:55 Sputum - Suctioned Gram Stain - Final 01/21/21 11:55 Sputum - Suctioned Sputum Culture - Final Escherichia coli Streptococcus constellatus <YOON Bridges - Last Filed: 02/02/21 16:10> Assessment and Plan (1) Alcoholic dementia: Status: Acute <YOON Bridges - Last Filed: 02/02/21 16:10> (2) Pulmonary aspiration: Status: Acute <YOON Bridges - Last Filed: 02/02/21 16:10> Assessment and Plan: This is a 50 year old male with history of TBI and alcoholism who presented to the ED on 19 January with AMS, hallucination and that time was believed to be withdrawing from alcohol. He didn't improve from conventional meds in the ED and was admitted to the ICU and required mechanical ventilation and sedation. ICU course was complicated by pulmonary aspiration, mild Chetan and rhabdo. He was Extubated on January 26 and noted to have fever and aspiration on January 27 and transfer from ICU service on january 28. Toxic encephalopathy. Seen by neuro who feels this represents alcoholic dementia, rec avoidance of etoh Seen by PT, no need for services, rec OT eval for cognitive tasks Eval by OT who rec home with 03/06 care vs adult program for safety/cognition concerns -psych consult for competency eval -Possible placement for safety Alcohol withdrawal/DTs. Resolved s/p management in ICU Seen by CARE team -continue Thiamine and Folate Aspiration Pneumonitis. No oxygen requirement or respiratory symptoms -Continue Augmentin for 10 doses, on day # 5 Mood disorder. -continue Seroquel and Celexa HTN. -continue Metoprolol HLD continue fenofibrate Mild Hypokalemia. Resolved CHETAN mild. Resolved. Dispo - Medically cleared. awaiting psych eval for competency ? need for placement DVT ppx - lovenox Attending: Dr. Mckeon <YOON Bridges - Last Filed: 02/02/21 16:10> Patient seen and examined independently and I was present during galeas portion of E/M service. Agree with YOON Walton's history, physical, assessment, and plan. Appearing less confused today. Remebered my named, date, month, and situation but shortly there after, per RN report stated that he was leaving and that his brother is coming to pick him up. Will get formal psych evaluation for Competency. <Ruperto Mckeon MD - Last Filed: 02/02/21 16:35>
[2021-02-02] MEDS: QUEtiapine Fumarate 50 MG TABLET 100 MG PO (20:12)
[2021-02-03 03:26] VITALS: BP 128/60; PULSE 67; RESP 18; TEMP 36.7; O2SAT 99
[2021-02-03 05:32] VITALS: BMI 26.4
[2021-02-03 07:05] VITALS: BP 127/62; PULSE 83; RESP 20; TEMP 36.6; O2SAT 97
[2021-02-03] MEDS: Fenofibrate 160 MG TABLET PO (08:26)
[2021-02-03] MEDS: Amoxicillin/Potassium Clav 875 MG TABLET PO (08:26)
[2021-02-03] MEDS: Folic Acid 1 MG TABLET PO (08:26)
[2021-02-03] MEDS: Famotidine 20 MG TABLET PO (08:26)
[2021-02-03] MEDS: Escitalopram Oxalate 20 MG TABLET PO (08:26)
[2021-02-03 08:27] VITALS: BP 110/64; PULSE 66
[2021-02-03] MEDS: Thiamine HCL 100 MG TABLET PO (08:27)
[2021-02-03] MEDS: Metoprolol Tartrate 25 MG TABLET PO (08:27)
[2021-02-03 11:05] VITALS: BP 113/65; PULSE 75; RESP 18; TEMP 35.5; O2SAT 99
--- NOTE | 2021-02-03 13:00 | P.CNPS_ITS ---
History of Present Illness Date of Service: 02/03/21 Chief Complaint: Encephalopathy Reason for Consult: Capacity request Requesting physician: Remedios Neely Discussed with referring provider: Yes (text) Sources of Information: patient interviewed and chart reviewed HPI Narrative: 50 yo male, admitted 01/19 with encephalopathy secondary to alcohol. Team describes a difficult course, DT sx, requiring intubation, sedation with aspiration, taylor, rhabdo with pneumonia after extubation. Capacity evaluation requested on 02/02. Met with pt who reports I am told I almost . Reports relapse on alcohol in early January 2020. He would have had two years sobriety in September. Discussed purpose of capacity evaluation with pt. He verbalized understanding of process and rationale for eval. Pt reports he was brought into hospital due to alcohol- mixed this with his medications and had a response. He reports a long medical process, most of which he does not recall due to severity of illness and feels gratefuly to be alive- I do not want to . States he is preparing for rehab care and would like to be a candidate to return to his home when this is completed. When TW discussed alcoholic dementia-he nodded, acknowledging he recalled being told this diagnosis. Pt reviewed the treatment for current issues-medical care, AA, rehab care, GI care for celiac dz and following recommendations of PCP, Dr. Stiles, therapist Ira Holguin from [facility] [place] addictions, his brother, Familia, his HCP, sister and mother, along with sponsors Marcus and Ash. Pt reports that he is aware that if I drink, I , quoting what his GI team told him. I know this is true. Pt believes there are no alternatives but to follow a complete treatment plan as he wants to live in [facility]. He reports he will be taking the advice of his team and family Past Psychiatric History: Unknown [facility] Medical History (Updated 02/03/21 @ 13:46 by Leann Wilks APRN) Major depression Diagnostics Vital Signs (24Hr): Vital Signs - 24 hr 02/02/21 15:09 02/02/21 19:14 02/02/21 20:12 Temperature 97.9 F 98.2 F Pulse Rate 70 80 82 Respiratory Rate 20 20 Blood Pressure 134/64 128/68 134/65 Pulse Oximetry 97 95 02/02/21 23:19 02/03/21 03:26 02/03/21 07:05 Temperature 98.8 F 98.0 F 98 F Pulse Rate 60 67 83 Respiratory Rate 18 18 20 Blood Pressure 125/64 128/60 127/62 Pulse Oximetry 97 99 97 02/03/21 08:27 02/03/21 11:05 Temperature 96 F L Pulse Rate 66 75 Respiratory Rate 18 Blood Pressure 110/64 113/65 Pulse Oximetry 99 Body Mass Index 26.4 Labs Results: 01/31/21 05:44 01/31/21 05:44 Imaging Radiology Impressions: ITS Impressions Head CT 01/19/21 02:09 IMPRESSION: No acute intracranial pathology. Chest X-Ray 01/19/21 18:46 IMPRESSION: ET tube needs to be pulled back as it is less than 1 cm from the geovanni. NG tube should be advanced. Chest X-Ray 01/23/21 06:00 IMPRESSION: Satisfactory position of support tubes. Low lung volumes and bilateral atelectasis/small infiltrates similar to previous exam. Chest X-Ray 01/23/21 12:34 IMPRESSION: New left subclavian line tip projects over SVC. No pneumothorax. Increasing bilateral perihilar and lower lung airspace disease. Question small right pleural effusion. Chest X-Ray 01/27/21 15:09 IMPRESSION: Bilateral pulmonary infiltrates. The endotracheal tube and enteric tube has been removed. Mental Status Exam Mental Status Exam Patient Appearance: Appropriate Patient Orientation: Person, Place, Time and Situation Level of Consciousness: Awake, Appropriate and Alert Patient Behavior: Talkative, Cooperative and Good Eye Contact Mood Description: Flat Affect Description: Flat Patient Cognition Impaired: No Ability to Follow Directions: Good Speech Pattern: Spontaneous Speech Memory Description: Remote Impaired, Episodic Impaired and Recent Impaired Hallucinations: None Delusions: Not Present Thought Process: Goal Oriented and Linear Thought Content: positive for Lennox, positive for Circumstantial, positive for Linear, positive for Logical and positive for Suicidal Ideation (denies) Depressive Symptoms: Thoughts of /Suicide (denies) and Loss of Energy Judgement: Fair Medications Medications Current Medications Generic Name Dose Route Start Last Admin Trade Name Freq PRN Reason Stop Dose Admin Enoxaparin Sodium 40 mg 01/19/21 15:00 02/02/21 15:36 Enoxaparin Sodium 40 Mg/0.4 Ml Syringe SUBCUT Not Given Q24H KAYLEIGH Escitalopram Oxalate 20 mg 01/28/21 15:45 02/03/21 08:26 Escitalopram Oxalate 20 Mg Tablet PO 20 mg DAILY KAYLEIGH Administration Famotidine 20 mg 01/29/21 09:00 02/03/21 08:26 Famotidine 20 Mg Tablet PO 20 mg DAILY KAYLEIGH Administration Fenofibrate 160 mg 01/29/21 09:00 02/03/21 08:26 Fenofibrate 160 Mg Tablet PO 160 mg DAILY KAYLEIGH Administration Folic Acid 1 mg 01/31/21 09:00 02/03/21 08:26 Folic Acid 1 Mg Tablet PO 1 mg DAILY KAYLEIGH Administration Metoprolol Tartrate 25 mg 01/28/21 21:00 02/03/21 08:27 Metoprolol Tartrate 25 Mg Tablet PO 25 mg BID KAYLEIGH Administration Protocol Quetiapine Fumarate 100 mg 01/28/21 21:00 02/02/21 20:12 Quetiapine Fumarate 50 Mg Tablet PO 100 mg BEDTIME KAYLEIGH Administration Thiamine HCl 100 mg 01/29/21 09:00 02/03/21 08:27 Thiamine Hcl 100 Mg Tablet PO 100 mg DAILY KAYLEIGH Administration Allergies Allergies Allergy/AdvReac Type Severity Reaction Status Date / Time gluten Allergy Abdominal Verified 01/28/21 14:50 Pain wheat Allergy Abdominal Verified 01/28/21 14:50 Pain Assessment & Plan Assessment & Plan (1) Alcoholic dementia: Status: Acute Code(s): F10.27 - Alcohol dependence with alcohol-induced persisting dementia Recommendations: Pt demonstrates capacity to make decisions. Today, he has plans to follow recommendations of treatment team and family, HCP and expresses understanding of the events which have occurred and the need for a comprehensive plan of care. (2) Major depression: Status: Acute Code(s): F32.9 - Major depressive disorder, single episode, unspecified Greater than 50% of the session was spent on counseling and/or coordination of care
--- NOTE | 2021-02-03 14:27 | MHC.CM.PN ---
Per Medical/PA, Patient is medically cleared for dc to home today, no services. CM met with Patient who appears quite happy to be returning home. Patient will dc to home today at 3:30 [facility].
== END 2021-02-03 15:41 | disposition home or self-care (01) | DRG 351 ==
LOC: HO.ED 01-19 07:13 → HO.EDOVER 01-19 15:54 → HO.ICU 01-19 16:08 → HO.IMC 01-29 14:20
PROVIDERS: Anesthesiology; Internal Medicine; Nurse Practitioner Acute Care; Physician Assistant; Physician Assistant Medical; Registered Nurse Community Health; Student in an Organized Health Care Education/Training Program; Admitting Provider Internal Medicine Pulmonary Disease; Emergency Provider Emergency Medicine Emergency Medical Services; PCP Nurse Practitioner Family; Visit Provider Family Medicine
DX: M62.82 Rhabdomyolysis (principal); J69.0 Pneumonitis due to inhalation of food and vomit; G92 Toxic encephalopathy; J96.00 Acute respiratory failure, unspecified whether with hypoxia or hypercapnia; J96.01 Acute respiratory failure with hypoxia; N17.9 Acute kidney failure, unspecified; F10.231 Alcohol dependence with withdrawal delirium; E83.52 Hypercalcemia; E87.6 Hypokalemia; F10.27 Alcohol dependence with alcohol-induced persisting dementia; E78.5 Hyperlipidemia, unspecified; I10 Essential (primary) hypertension; F32.9 Major depressive disorder, single episode, unspecified; R74.01 Elevation of levels of liver transaminase levels; F41.9 Anxiety disorder, unspecified; Z87.820 Personal history of traumatic brain injury; Z20.822 Contact with and (suspected) exposure to COVID-19; Z79.899 Other long term (current) drug therapy
CPT/HCPCS: 36415; 70450; 71045; 80048; 80053; 80076; 80307; 80320; 81003; 82040; 82140; 82550; 83605; 83735; 84100; 84145; 84450; 84460; 84484; 85025; 85610; 85730; 86140; 87040; 87070; 87077; 87086; 87186; 87205; 87635; 93005; 94002; 94003; 94799; 96361; 96372; 96374; 96375; 97161; 97165; 97530; 99285; C1758; J0295; J0610; J1200; J1650; J1940; J2060; J2250; J2543; J2560; J3010; J3411; J3475; P9047